=== PATIENT | female | born 1970 | race Caucasian/White ===

== ENCOUNTER 2016-11-13 22:44 | Emergency (ER) | payer BC ==
[2016-11-13 23:02] VITALS: TEMP 97.9
[2016-11-13] MEDS ORDERED: ONDANSETRON 4 MG/2 ML VIAL IVP STA (23:58)
[2016-11-13] MEDS ORDERED: MORPHINE SULFATE 4 MG/ML SYRINGE IVP STA (23:58)
[2016-11-13] MEDS ORDERED: SODIUM CHLORIDE 0.9% 1,000 ML IV ONE (23:58)
--- NOTE | 2016-11-14 00:01 | ED ---
Abdominal Pain HPI - General Chief Complaint: Abdominal Pain Stated Complaint: Abd Pain Time Seen by Provider: 11/13/16 23:41 Source: patient, RN notes reviewed Mode of arrival: ambulatory Limitations: no limitations - History of Present Illness Initial Comments: Patient is a 46-year-old female resents to the emergency room for evaluation of abdominal pain. Patient states she has a history of IBS and diverticulitis. Patient states following up with Dr. Ceballos was recently placed on Bentyl and Viberzi. Patient states over the past 3 days she has had worsening left lower quadrant pain and diarrhea. Patient denies any blood in the stools. Patient states nauseous and has been vomiting. Patient denies chest pain or shortness of breath. Patient denies any pain or burning during urination, trouble urinating or blood in the urine. Patient denies history of kidney stones. Patient states the pain radiates to her left lower back. Patient states that he 9 out of 10 constant sharp pain. - Related Data Home Medications Medication Instructions Recorded Confirmed ALPRAZolam [Xanax] 1 mg PO TID 02/01/15 11/13/16 Omeprazole [PriLOSEC] 20 mg PO AC-BID 02/01/15 11/13/16 Sertraline [Zoloft] 100 mg PO DAILY 05/13/16 11/13/16 Dicyclomine [Bentyl] 20 mg PO QID 09/24/16 11/13/16 Naproxen [Naprosyn] 500 mg PO Q12HR PRN 09/24/16 11/13/16 Eluxadoline [Viberzi] 75 mg PO QAM 10/23/16 11/13/16 Testosterone Cypionate 200 mg IM Q42D 10/23/16 11/13/16 [Depo-Testosterone] Turmeric Root Extract [Turmeric] 1,000 mg PO DAILY 10/23/16 11/13/16 Previous Rx's Medication Instructions Recorded Ciprofloxacin HCl [Cipro] 500 mg PO Q12HR #14 tablet 10/24/16 HYDROcodone/APAP 5-325MG [[place] 1 tab PO Q6HR PRN #15 tab 11/14/16 5-325] Allergies Allergy/AdvReac Type Severity Reaction Status Date / Time No Known Allergies Allergy Verified 11/13/16 23:02 Review of Systems ROS Statement: Those systems with pertinent positive or pertinent negative responses have been documented in the HPI. ROS Other: All systems not noted in ROS Statement are negative. Past Medical History Past Medical History: GERD/Reflux Additional Past Medical History / Comment(s): cluster headaches; IBS; Diverticulitis History of Any Multi-Drug Resistant Organisms: None Reported Past Surgical History: Hysterectomy Additional Past Surgical History / Comment(s): Colon/EGD Past Anesthesia/Blood Transfusion Reactions: No Reported Reaction Past Psychological History: No Psychological Hx Reported Smoking Status: Current every day smoker Past Alcohol Use History: Occasional Additional Past Alcohol Use History / Comment(s): STARTED TO SMOKE AT AGE 14 Past Drug Use History: None Reported, Marijuana - Past Family History Mother Family Medical History: No Reported History General Exam - General Exam Comments Initial Comments: Sitting in exam room, no acute distress. Limitations: no limitations General appearance: alert, in no apparent distress Head exam: Present: atraumatic, normocephalic, normal inspection Eye exam: Present: normal appearance ENT exam: Present: normal exam Neck exam: Present: normal inspection Respiratory exam: Present: normal lung sounds bilaterally. Absent: respiratory distress Cardiovascular Exam: Present: regular rate, normal rhythm, normal heart sounds GI/Abdominal exam: Present: soft, tenderness (LLQ), normal bowel sounds. Absent : distended, guarding, rebound, rigid Extremities exam: Present: normal inspection Back exam: Present: normal inspection Neurological exam: Present: alert, oriented X3, CN II-XII intact, normal gait Psychiatric exam: Present: normal affect, normal mood Skin exam: Present: warm, dry, intact, normal color. Absent: rash Course Vital Signs 11/13/16 11/14/16 22:59 01:48 Temperature 97.9 F 97.9 F Pulse Rate 99 87 Respiratory 18 16 Rate Blood Pressure 119/65 117/57 O2 Sat by Pulse 95 96 Oximetry Medical Decision Making - Medical Decision Making Patient is a 46-year-old female presents emergency room for evaluation of abdominal pain. Labs show no significant findings. Patient states she is feeling better after pain medications. Patient had a abdomen/pelvis CT done on 10/25/16 with no acute findings. Advised patient to follow-up with her GI specialist or primary care provider. Agreed to send patient home with pain medications. Patient states she understands everything that was discussed with her. Return parameters discussed. Case discussed with Dr. Larson. - Lab Data Result diagrams: 11/14/16 00:15 11/13/16 00:15 Lab Results 11/13/16 11/14/16 11/14/16 Range/Units 00:15 00:15 00:15 WBC 9.3 (3.8-10.6) k/uL RBC 4.63 (3.80-5.40) m/uL Hgb 15.4 (11.4-16.0) gm/dL Hct 47.1 H (34.0-46.0) % MCV 101.6 H (80.0-100.0) fL MCH 33.2 (25.0-35.0) pg MCHC 32.6 (31.0-37.0) g/dL RDW 12.5 (11.5-15.5) % Plt Count 322 (150-450) k/uL Neutrophils % 63 % Lymphocytes % 26 % Monocytes % 5 % Eosinophils % 3 % Basophils % 1 % Neutrophils # 5.9 (1.3-7.7) k/uL Lymphocytes # 2.4 (1.0-4.8) k/uL Monocytes # 0.5 (0-1.0) k/uL Eosinophils # 0.3 (0-0.7) k/uL Basophils # 0.1 (0-0.2) k/uL Sodium 138 (137-145) mmol/L Potassium 4.3 (3.5-5.1) mmol/L Chloride 102 (98-107) mmol/L Carbon Dioxide 30 (22-30) mmol/L Anion Gap 6 mmol/L BUN 23 H (7-17) mg/dL Creatinine 0.90 (0.52-1.04) mg/dL Est GFR (MDRD) Af Amer >60 (>60 ml/min/1.73 sqM) Est GFR (MDRD) Non-Af >60 (>60 ml/min/1.73 sqM) Glucose 101 H (74-99) mg/dL Calcium 9.2 (8.4-10.2) mg/dL Total Bilirubin 0.3 (0.2-1.3) mg/dL AST 22 (14-36) U/L ALT 37 (9-52) U/L Alkaline Phosphatase 81 (38-126) U/L Total Protein 6.5 (6.3-8.2) g/dL Albumin 3.9 (3.5-5.0) g/dL Amylase 49 (30-110) U/L Lipase 164 (23-300) U/L Urine Color Light Yellow Urine Appearance Clear (Clear) Urine pH 5.5 (5.0-8.0) Ur Specific [place] 1.011 (1.001-1.035) Urine Protein Negative (Negative) Urine Glucose (UA) Negative (Negative) Urine Ketones Negative (Negative) Urine Blood Negative (Negative) Urine Nitrate Negative (Negative) Urine Bilirubin Negative (Negative) Urine Urobilinogen <2.0 (<2.0) mg/dL Ur Leukocyte Esterase Negative (Negative) - Radiology Data Radiology results: report reviewed, image reviewed Disposition Clinical Impression: Abdominal pain, IBS (irritable bowel syndrome) Disposition: HOME SELF-CARE Condition: Good Instructions: Abdominal Pain (ED) Additional Instructions: Take medications as needed for pain. Please follow up with GI specialist or primary care provider 24-48 hours. If any new symptom arises, symptoms worsen or fever develops, return to ER as soon as possible. Prescriptions: HYDROcodone/APAP 5-325MG [[place] 5-325] 1 tab PO Q6HR PRN #15 tab PRN Reason: Pain Referrals: Eber Vazquez III, MD [Primary Care Provider] - 1-2 days Time of Disposition: 02:03
[2016-11-14 00:26] LABS: Appearance,Urine Clear (Clear); Bilirubin,Urine Negative (Negative); Glucose,Urine (UA) Negative (Negative); Ketones,Urine Negative (Negative); Leukocyte Esterase,Urine Negative (Negative); Nitrite,Urine Negative (Negative); PH, Urine 5.5 (5.0-8.0); Protein,Urine Negative (Negative); Specific Gravity,Urine 1.011 (1.001-1.035); UA Billing (MACRO vs. MICRO) CHEM; Urobilinogen,Urine <2.0 mg/dL (<2.0)
[2016-11-14 00:27] LABS: Basophils # (A) 0.1 k/uL (0-0.2); Basophils % (A) 1 %; CH 34.2; CHCM 33.8; Eosinophils # (A) 0.3 k/uL (0-0.7); Eosinophils % (A) 3 %; HCT 47.1 % (34.0-46.0); HDW 2.07; HGB 15.4 gm/dL (11.4-16.0); Luc # (Auto) 0.13; Luc % (Auto) 1; Lymphocytes # (A) 2.4 k/uL (1.0-4.8); Lymphocytes % (A) 26 %; MCH 33.2 pg (25.0-35.0); MCHC 32.6 g/dL (31.0-37.0); MCV 101.6 fL (80.0-100.0); Mean Platelet Volume 7.1; Monocytes # (A) 0.5 k/uL (0-1.0); Monocytes % (A) 5 %; Neutrophils # (A) 5.9 k/uL (1.3-7.7); Neutrophils % (A) 63 %; RBC 4.63 m/uL (3.80-5.40); RDW 12.5 % (11.5-15.5); WBC 9.3 k/uL (3.8-10.6); WBC (Perox) 8.71
[2016-11-14 00:35] LABS: ALT 37 U/L (9-52); AST 22 U/L (14-36); Alkaline Phosphatase 81 U/L (38-126); Amylase 49 U/L (30-110); Anion Gap 6 mmol/L; Blood Urea Nitrogen 23 mg/dL (7-17); Calcium 9.2 mg/dL (8.4-10.2); Carbon Dioxide 30 mmol/L (22-30); Chloride 102 mmol/L (98-107); Glucose 101 mg/dL (74-99); Non-African American GFR(MDRD) >60 (>60 ml/min/1.73 sqM); Potassium 4.3 mmol/L (3.5-5.1); Sodium 138 mmol/L (137-145); Total Bilirubin 0.3 mg/dL (0.2-1.3); Total Protein 6.5 g/dL (6.3-8.2)
--- NOTE | 2016-11-14 01:36 | XR ---
EXAMINATION TYPE: XR KUB DATE OF EXAM: 11/14/2016 12:43 AM CLINICAL HISTORY: History of diverticulosis and IBS. UTI 2 weeks ago, patient complains of nausea vom iting diarrhea. History of hysterectomy. . TECHNIQUE: 2 upright frontal radiographs of abdomen were obtained. COMPARISON: 09/13/2009 FINDINGS: Scattered gas is seen in non-distended small bowel loops. Gas and fecal material is seen in non-distended colon. There is no pneumoperitoneum, or abnormal calcification appreciated. The l abimbola bases are clear and the osseous structures are intact. IMPRESSION: Overall nonobstructive bowel gas pattern.
[2016-11-14 01:48] VITALS: BP 117/57; PULSE 87; RESP 16
[2016-11-14] MEDS ORDERED: MORPHINE SULFATE 4 MG/ML SYRINGE IVP STA (02:05)
== END 2016-11-14 02:38 | disposition home or self-care (01) ==
LOC: EC 22:44
DX: K58.9 Irritable bowel syndrome, unspecified (principal); K21.9 Gastro-esophageal reflux disease without esophagitis; F17.200 Nicotine dependence, unspecified, uncomplicated; Z79.899 Other long term (current) drug therapy
CPT/HCPCS: 99284; 96376; 96375; 96374; 96361; 36415 ×2; 80053; 82150; 83690; 85025; 81003; 74000; J2270; J2405

== ENCOUNTER 2016-12-19 21:39 | Emergency (ER) | payer BC ==
--- NOTE | 2016-12-19 23:31 | ED ---
General Adult HPI - General Chief complaint: Headache Stated complaint: Poss cluster headache Time Seen by Provider: 12/19/16 22:58 Source: patient, RN notes reviewed Mode of arrival: ambulatory Limitations: no limitations - History of Present Illness Initial comments: This is a 38-year-old female presents with left side "cluster headaches". Patient states she gets chronic headaches with the same symptoms that she is having today. Patient states she normally gets blurred vision to the left eye and symptoms can last for about 3 hours until they subside only to return again. Patient denies any trouble talking dysphagia, nausea/vomiting/diarrhea. She denies any head injury. Patient does admit to some photophobia of the left eye. Patient states she has had these symptoms all week. Patient has taken Fioricet and Tylenol #3, but this has not helped. Patient denies any recent fever, chills, shortness breath, chest pain, abdominal pain, back pain, numbness, tingling, hematuria, or any other complaints. - Related Data Home Medications Medication Instructions Recorded Confirmed ALPRAZolam [Xanax] 1 mg PO TID PRN 02/01/15 12/19/16 Omeprazole [PriLOSEC] 20 mg PO AC-BID 02/01/15 12/19/16 Sertraline [Zoloft] 100 mg PO DAILY 05/13/16 12/19/16 Testosterone Cypionate 200 mg IM Q42D 10/23/16 12/19/16 [Depo-Testosterone] Turmeric Root Extract [Turmeric] 1,000 mg PO DAILY 10/23/16 12/19/16 Acetaminophen-Codeine 300-30mg 1 tab PO Q6H PRN 12/19/16 12/19/16 [Tylenol #3] Butalb/APAP/Caff 50-325-40Mg 1 tab PO Q4H PRN 12/19/16 12/19/16 [Fioricet 50-325-40] Butalb/Acetaminophen/Caffeine 1 - 2 cap PO Q4HR PRN 12/19/16 12/19/16 [Fioricet 50-300-40 mg Capsule] Hyoscyamine Sulfate [Levbid] 0.375 mg PO AC-TID PRN 12/19/16 12/19/16 Mesalamine [Pentasa] 500 mg PO BID 12/19/16 12/19/16 Allergies Allergy/AdvReac Type Severity Reaction Status Date / Time No Known Allergies Allergy Verified 12/19/16 23:04 Review of Systems ROS Statement: Those systems with pertinent positive or pertinent negative responses have been documented in the HPI. ROS Other: All systems not noted in ROS Statement are negative. Past Medical History Past Medical History: GERD/Reflux Additional Past Medical History / Comment(s): cluster headaches; IBS; Diverticulitis History of Any Multi-Drug Resistant Organisms: None Reported Past Surgical History: Hysterectomy Additional Past Surgical History / Comment(s): Colon/EGD Past Anesthesia/Blood Transfusion Reactions: No Reported Reaction Past Psychological History: No Psychological Hx Reported Smoking Status: Current every day smoker Past Alcohol Use History: Occasional Additional Past Alcohol Use History / Comment(s): STARTED TO SMOKE AT AGE 14 Past Drug Use History: None Reported, Marijuana - Past Family History Mother Family Medical History: No Reported History General Exam - General Exam Comments Initial Comments: General: The patient is awake and alert, in no distress, and does not appear acutely ill. Eye: Pupils are equal, round and reactive to light, extra-ocular movements are intact. No nystagmus. There is normal conjunctiva bilaterally. No signs of icterus. Normal ocular pressure via tonometry. Ears: TMs pink and pearly with intact cone of light bilaterally. Normal external ear canals Nose: Nasal turbinates pink and moist Mouth and throat: There are moist mucous membranes and no oral lesions. Neck: The neck is supple, there is no tenderness or JVD. Cardiovascular: There is a regular rate and rhythm. No murmur, rub or gallop is appreciated. Respiratory: Lungs are clear to auscultation, respirations are non-labored, breath sounds are equal. No wheezes, stridor, rales, or rhonchi. Musculoskeletal: Normal ROM, no tenderness. Strength 5/5. Sensation intact. Radial pulses equal bilaterally 2+. Neurological: A&O x 3. CN II-XII intact, There are no obvious motor or sensory deficits. Coordination appears grossly intact. Speech is normal. Skin: Skin is warm and dry and no rashes or lesions are noted. Psychiatric: Cooperative, appropriate mood & affect, normal judgment. Limitations: no limitations Course Vital Signs 12/19/16 22:20 Temperature 98.1 F Pulse Rate 101 H Respiratory 20 Rate Blood Pressure 115/68 O2 Sat by Pulse 96 Oximetry Medical Decision Making - Medical Decision Making This is a 38-year-old female who presents with symptoms of a cluster headache. Patient states she gets these periodically and the symptoms she has today are typical headache symptoms for her. On physical exam patient is neurologically intact. Patient is afebrile in the EC today. Patient was given IV medications in the EC today along with a fluid bolus. Patient was also given 2 L of oxygen via nasal cannula due to symptoms of cluster headache. Patient reported improvement in symptoms. Patient also reports improvement in vision after IV medications. Tonometry showed normal ocular pressure. I discussed that patient will be discharged home. I discussed rest. I discussed return parameters. I discussed continuation of the patient's home headache medications. I discussed that patient follow up with her primary care physician tomorrow. Discussed that patient should return to the EC for any worsening symptoms or for any further concerns. Patient was receptive to this plan and patient will be discharged home. I discussed this case with attending physician Dr. Hwoe and patient will be discharged home. Disposition Clinical Impression: Chronic headaches Disposition: HOME SELF-CARE Condition: Good Instructions: Cluster Headache (ED) Additional Instructions: Please continue your normal at home headache medications. Please be sure to drink plenty of fluids. Please follow-up with her primary care physician tomorrow or return to the EC for any worsening symptoms or for any further concerns. Referrals: Eber Vazquez III, MD [Primary Care Provider] - 1-2 days Time of Disposition: 00:48
[2016-12-19] MEDS ORDERED: diphenhydrAMINE 50 MG/ML 1 ML VIAL IVP STA (23:39)
[2016-12-19] MEDS ORDERED: DEXAMETHASONE SOD PHOSPHATE 4 MG/ML 1 ML VIAL IV STA (23:39)
[2016-12-19] MEDS ORDERED: KETOROLAC 30 MG/ML 1 ML VIAL IVP STA (23:39)
[2016-12-19] MEDS ORDERED: METOCLOPRAMIDE 5 MG/ML 2 ML VIAL IVP STA (23:40)
[2016-12-19] MEDS ORDERED: SODIUM CHLORIDE 0.9% 1,000 ML IV ONE (23:40)
[2016-12-20 01:02] VITALS: BP 123/81; PULSE 79; RESP 18; TEMP 96.9
== END 2016-12-20 01:02 | disposition home or self-care (01) ==
LOC: EC 21:39
DX: R51 Headache (principal); K21.9 Gastro-esophageal reflux disease without esophagitis; F17.200 Nicotine dependence, unspecified, uncomplicated; Z79.899 Other long term (current) drug therapy
CPT/HCPCS: 99283; 96374; 96375; 96361; J1200; J1100; J2765; J1885

== ENCOUNTER 2019-10-26 06:25 | Inpatient (IN) | payer BC ==
[2019-10-26] MEDS ORDERED: LORazepam 2 MG/ML INJ IV STA (06:45)
[2019-10-26] MEDS ORDERED: ASPIRIN 81 MG PO STA (06:45)
[2019-10-26 07:00] LABS: Basophils # (A) 0.1 k/uL (0-0.2); Basophils % (A) 1 %; Eosinophils # (A) 0.3 k/uL (0-0.7); Eosinophils % (A) 3 %; HCT 47.1 % (34.0-46.0); HGB 15.5 gm/dL (11.4-16.0); Lymphocytes # (A) 2.2 k/uL (1.0-4.8); Lymphocytes % (A) 22 %; MCH 32.8 pg (25.0-35.0); MCHC 32.9 g/dL (31.0-37.0); MCV 99.7 fL (80.0-100.0); Monocytes # (A) 0.4 k/uL (0-1.0); Monocytes % (A) 4 %; Neutrophils # (A) 6.6 k/uL (1.3-7.7); Neutrophils % (A) 69 %; Platelet Count 334 k/uL (150-450); RBC 4.73 m/uL (3.80-5.40); RDW 11.8 % (11.5-15.5); WBC 9.7 k/uL (3.8-10.6)
--- NOTE | 2019-10-26 07:04 | ED ---
Chest Pain HPI - General Chief Complaint: Chest Pain Stated Complaint: Chest Pain/Lft arm pain Time Seen by Provider: 10/26/19 06:34 Source: patient, RN notes reviewed Mode of arrival: ambulatory Limitations: no limitations - History of Present Illness Initial Comments: 49-year-old female presents emergency Department with chief complaint of chest pain. She states she's had some on-and-off symptoms last week but states overnight she had worsening constant pain. She states it's in her anterior chest region also radiates to her shoulders and left arm. She states that she tingling or left hand. Patient states that she does have a history of hyperlipidemia denies hypertension. Patient is a daily smoker history of anxiety. Patient denies any fevers chills. Patient denies any cardiac stenting or stress test. Patient states that she reportedly had a small heart attack in the past.patient states that it's difficult to breathe. Patient states that she just feels like she cannot get a full breath in. - Related Data Home Medications Medication Instructions Recorded Confirmed Atorvastatin [Lipitor] 10 mg PO HS 10/26/19 10/26/19 DULoxetine HCL [Cymbalta] 60 mg PO HS 10/26/19 10/26/19 Naproxen 500 mg PO DAILY PRN 10/26/19 10/26/19 Topiramate 100 mg PO BID 10/26/19 10/26/19 clonazePAM [KlonoPIN] 2 mg PO HS 10/26/19 10/26/19 Allergies Allergy/AdvReac Type Severity Reaction Status Date / Time No Known Allergies Allergy Verified 10/26/19 07:32 Review of Systems ROS Statement: Those systems with pertinent positive or pertinent negative responses have been documented in the HPI. ROS Other: All systems not noted in ROS Statement are negative. EKG Findings - EKG Comments: EKG Findings:: EKG performed at 6:39 normal sinus rhythm with left atrial enlargement rate of 80 MA 134 QRS 90 QT/QTC 394/454 Past Medical History Past Medical History: Fibromyalgia, GERD/Reflux, Hyperlipidemia Additional Past Medical History / Comment(s): cluster headaches; IBS; Diverticulitis History of Any Multi-Drug Resistant Organisms: None Reported Past Surgical History: Hysterectomy Additional Past Surgical History / Comment(s): Colon/EGD Past Anesthesia/Blood Transfusion Reactions: No Reported Reaction Past Psychological History: Anxiety, Depression Smoking Status: Current every day smoker Past Alcohol Use History: Occasional Past Drug Use History: Marijuana - Past Family History Mother Family Medical History: No Reported History General Exam Limitations: no limitations General appearance: alert, in no apparent distress Head exam: Present: atraumatic, normocephalic, normal inspection Eye exam: Present: normal appearance, PERRL, EOMI. Absent: scleral icterus, conjunctival injection, periorbital swelling ENT exam: Present: normal exam, normal oropharynx, mucous membranes moist Neck exam: Present: normal inspection, full ROM. Absent: tenderness, meningismus, lymphadenopathy Respiratory exam: Present: normal lung sounds bilaterally. Absent: respiratory distress, wheezes, rales, rhonchi, stridor Cardiovascular Exam: Present: regular rate, normal rhythm, normal heart sounds. Absent: systolic murmur, diastolic murmur, rubs, gallop, clicks GI/Abdominal exam: Present: soft, normal bowel sounds. Absent: distended, tenderness, guarding, rebound, rigid Course Vital Signs 10/26/19 10/26/19 10/26/19 06:30 06:49 07:15 Temperature 98.1 F Pulse Rate 98 76 Pulse Rate [ 82 Monotypist ] Respiratory 20 16 Rate Blood Pressure 124/86 135/101 O2 Sat by Pulse 98 99 Oximetry Critical Care Time Critical Care Time: Yes Total Critical Care Time: 35 Critical Care Time: total 35 minutes of critical care time initially evaluated patient, reviewed past medical history medications. Patient's labs, EKG and chest x-ray ordered patient was given aspirin at this time. Patient EKG shows some old changes nothing acute. Patient had labs which were unremarkable except for an elevated troponin at 1.790. Patient was started on heparin, given nitro for NSTEMi. Urology was paged at this time. Patient will be admitted to medicine. Disposition Clinical Impression: Acute non-ST elevation myocardial infarction (NSTEMI) Disposition: ADMITTED IP TO THIS HOSP Condition: Fair Referrals: Eber Vazquez III, MD [Primary Care Provider] - 1-2 days
[2019-10-26 07:10] LABS: ALT 72 U/L (4-34); AST 59 U/L (14-36); African American GFR (CKD) >90 (>60 ml/min/1.73 sqM); Albumin 4.3 g/dL (3.5-5.0); Alkaline Phosphatase 111 U/L (38-126); Anion Gap 9 mmol/L; Blood Urea Nitrogen 22 mg/dL (7-17); Calcium 9.3 mg/dL (8.4-10.2); Carbon Dioxide 20 mmol/L (22-30); Chloride 110 mmol/L (98-107); Glucose 121 mg/dL (74-99); Magnesium 2.1 mg/dL (1.6-2.3); Non-African American GFR(CKD) 85 (>60 ml/min/1.73 sqM); Potassium 4.5 mmol/L (3.5-5.1); Sodium 139 mmol/L (137-145); Total Bilirubin 0.5 mg/dL (0.2-1.3); Total Protein 7.5 g/dL (6.3-8.2)
[2019-10-26 07:14] LABS: D-Dimer 0.45 mg/L FEU (<0.60); INR 0.8 (<1.2); Partial Thromboplastin Time 24.4 sec (22.0-30.0); Prothrombin Time 9.4 sec (9.0-12.0)
--- NOTE | 2019-10-26 07:19 | XR ---
EXAMINATION TYPE: XR chest 2V DATE OF EXAM: 10/26/2019 COMPARISON: NONE HISTORY: Left-sided chest pain. TECHNIQUE: Frontal and lateral views of the chest are obtained. FINDINGS: Overlying EKG leads are seen. There is no focal air space opacity, pleural effusion, or pne umothorax seen. The cardiac silhouette size is upper limits of normal. The osseous structures are intact. IMPRESSION: No acute cardiopulmonary process.
[2019-10-26] MEDS ORDERED: NITROGLYCERIN SL TABS 0.4 MG TAB SUBLINGUAL STA (07:58)
[2019-10-26] MEDS ORDERED: HEPARIN SODIUM,PORCINE 5,000 UNIT/ML 1 ML VIAL IV PRN (07:58)
[2019-10-26] MEDS ORDERED: HEPARIN SODIUM,PORCINE 5,000 UNIT/ML 1 ML VIAL IV ONE (07:58)
[2019-10-26] MEDS ORDERED: HEPARIN SOD,PORK IN 0.45% NACL 25,000 UNIT in 0.45% NACL 1 250ML.BAG IV SCH (08:00)
[2019-10-26] MEDS ORDERED: NITROGLYCERIN SL TABS 0.4 MG TAB SUBLINGUAL PRN ×3 (08:04→11:35)
[2019-10-26] MEDS ORDERED: NITROGLYCERIN-D5W PMX 50 MG in DEXTROSE/WATER 1 250ML.BAG IV ONE (08:21)
[2019-10-26] MEDS ORDERED: ATORVASTATIN 80 MG TAB PO STA ×2 (08:52→09:10)
[2019-10-26] MEDS ORDERED: ASPIRIN 325 MG TAB PO STA (09:10)
[2019-10-26] MEDS ORDERED: ALPRAZolam 0.25 MG TAB PO PRN (09:10)
[2019-10-26] MEDS ORDERED: ALPRAZolam 0.5 MG TAB PO PRN (09:10)
[2019-10-26] MEDS ORDERED: SODIUM CHLORIDE 0.9% 1,000 ML in EMPTY BAG 1 BAG IV ONE (09:10)
--- NOTE | 2019-10-26 09:10 | P.CRDCN ---
History of Present Illness Consult date: 10/26/19 Requesting physician: Rita Butler Consult reason: non-Q-wave NM Chief complaint: left arm and chest discomfort History of present illness: this is a pleasant 49-year-old female with history of hyperlipidemia, nicotine dependence, anxiety and depression, who presented to the emergency room with symptoms of left arm pain with radiation to the chest, and across her upper back and interscapular region. Patient has been experiencing symptoms off and on, progressively worsening over the past week or more. Patient does get associated diaphoresis and short of breath with these symptoms. According to the patient, she did not recognize her even think that this would be her heart. The night before presentation here she states was the worst of the symptoms, she took 2 Xanax hoping it would alleviate the symptoms however they continued to worsen and she came to the emergency room for further evaluation and treatment.her initial EKG on presentation here showed a normal sinus rhythm with inferior T-wave inversion.chest x-ray did not reveal any acute cardiopulmonary process.blood pressure 130/80 with a heart rate in the 80s, 99% on room air.White blood cell count 9.7, hemoglobin 15.5, platelet count 334, d-dimer 0.4. Sodium 139, potassium 4.5, BUN 22, creatinine 0.8, magnesium 2.1. AST 59, ALT 72.Initial troponin on presentation here 1.7.at the time of my examination this morning, patient was seen in the emergency room, she is currently chest pain-free, on IV heparin. Past Medical History Past Medical History: Fibromyalgia, GERD/Reflux, Hyperlipidemia Additional Past Medical History / Comment(s): Pt states in the pase she accidentally injected too much submatriptan for migraine and had a reaction and was told by her physician she may have had a small NM, past GERD, cluster headaches, IBS, diverticular disease, bronchitis. History of Any Multi-Drug Resistant Organisms: None Reported Past Surgical History: Hysterectomy Additional Past Surgical History / Comment(s): Colonoscopies/EGDs Past Anesthesia/Blood Transfusion Reactions: No Reported Reaction Past Psychological History: Anxiety, Depression Additional Psychological History / Comment(s): Pt resides with her spouse. She is independent. Smoking Status: Light tobacco smoker Past Alcohol Use History: Occasional Additional Past Alcohol Use History / Comment(s): Pt started smoking in 1981, 1 ppd, but for pst few weeks has cut down to one pack per week. She states she drinks alcohol 4 days of the week and more than 7 drinks per week. Past Drug Use History: Marijuana Additional Drug Use History / Comment(s): Pt smokes marijuana occasionally - Past Family History Mother Family Medical History: No Reported History Additional Family Medical History / Comment(s): Mother is healthy and is 81 yrs old. Father Family Medical History: No Reported History Additional Family Medical History / Comment(s): Father is 74 and healthy Medications and Allergies Home Medications Medication Instructions Recorded Confirmed Type Atorvastatin [Lipitor] 10 mg PO HS 10/26/19 10/26/19 History DULoxetine HCL [Cymbalta] 60 mg PO HS 10/26/19 10/26/19 History Naproxen 500 mg PO DAILY PRN 10/26/19 10/26/19 History Topiramate 100 mg PO BID 10/26/19 10/26/19 History clonazePAM [KlonoPIN] 2 mg PO HS 10/26/19 10/26/19 History Allergies Allergy/AdvReac Type Severity Reaction Status Date / Time No Known Allergies Allergy Verified 10/26/19 07:32 Physical Exam Vitals: Vital Signs Temp Pulse Pulse Resp BP Pulse Ox 10/26/19 08:24 86 16 129/89 99 10/26/19 07:15 76 16 135/101 99 10/26/19 06:49 82 10/26/19 06:30 98.1 F 98 20 124/86 98 Intake and Output 10/25/19 10/26/19 10/26/19 22:59 06:59 14:59 Other: Weight 81.647 kg 81.647 kg PHYSICAL EXAMINATION: GENERAL:49-year-old female in no acute distress at the time of my examination HEENT: Head is atraumatic, normocephalic. Pupils equal, round. Sclera anicter ic. Conjunctiva are clear. Mucous membranes of the mouth are moist. Neck is supple. There is no elevated jugular venous pressure.no carotid bruit is heard. HEART EXAMINATION: [Heart S1, S2 normal. No murmur or gallop heard.] CHEST EXAMINATION:[ Lungs are clear to auscultation and precussion. No chest wall tenderness is noted on palpation or with deep breathing.] ABDOMEN: [ Soft, nontender. Bowel sounds are heard. No organomegaly noted]. EXTREMITIES:[ 2+ peripheral pulses with no evidence of peripheral edema and no calf tenderness noted]. NEUROLOGIC [patient is awake, alert and oriented 3.] . Results 10/26/19 06:39 10/26/19 06:39 Cardiac Enzymes 10/26/19 10/26/19 Range/Units 06:39 06:39 AST 59 H (14-36) U/L Troponin I 1.790 H* (0.000-0.034) ng/mL Coagulation 10/26/19 Range/Units 06:39 PT 9.4 (9.0-12.0) sec APTT 24.4 (22.0-30.0) sec CBC 10/26/19 Range/Units 06:39 WBC 9.7 (3.8-10.6) k/uL RBC 4.73 (3.80-5.40) m/uL Hgb 15.5 (11.4-16.0) gm/dL Hct 47.1 H (34.0-46.0) % Plt Count 334 (150-450) k/uL Comprehensive Metabolic Panel 10/26/19 Range/Units 06:39 Sodium 139 (137-145) mmol/L Potassium 4.5 (3.5-5.1) mmol/L Chloride 110 H (98-107) mmol/L Carbon Dioxide 20 L (22-30) mmol/L BUN 22 H (7-17) mg/dL Creatinine 0.81 (0.52-1.04) mg/dL Glucose 121 H (74-99) mg/dL Calcium 9.3 (8.4-10.2) mg/dL AST 59 H (14-36) U/L ALT 72 H (4-34) U/L Alkaline Phosphatase 111 (38-126) U/L Total Protein 7.5 (6.3-8.2) g/dL Albumin 4.3 (3.5-5.0) g/dL Current Medications Generic Name Dose Route Start Last Admin Trade Name Freq PRN Reason Stop Dose Admin Aspirin 325 mg 10/27/19 09:00 Aspirin PO DAILY DAYSI Heparin Sodium (Porcine) 0 unit 10/26/19 07:58 Heparin IV PER PROTOCOL PRN Low PTT Protocol Heparin Sodium/Sodium Chloride 250 mls @ 9.798 mls/hr 10/26/19 08:00 12/17/19 08:07 25,000 unit/ Sodium Chloride IV 12 units/kg/hr .Q24H DAYSI 9.798 mls/hr Administration Protocol 12 UNITS/KG/HR Nitroglycerin/Dextrose 50 mg/ 250 mls @ 1.5 mls/hr 10/26/19 08:21 10/26/19 08:55 IV Solution IV 10/27/19 08:20 Not Given .Q24H ONE Protocol 5 MCG/MIN Nitroglycerin 0.4 mg 10/26/19 08:04 Nitrostat SUBLINGUAL Q5M PRN Chest Pain Intake and Output 10/25/19 10/26/19 10/26/19 22:59 06:59 14:59 Other: Weight 81.647 kg 81.647 kg Patient Weight 10/27/19 06:59 Weight 81.647 kg 10/26/19 06:39 10/26/19 06:39 EKG Interpretations (text) EKG shows normal sinus rhythm with ST-T wave changes noted in the inferior leads. Assessment and Plan Plan: Assessment and plan #1 symptoms of left arm and chest discomfort with associated diaphoresis and nausea, initial troponin 1.7. EKG shows normal sinus rhythm with ST-T wave changes noted in the inferior leads. Clinical picture suggestive of non-STEMI #2 hyperlipidemia #3 nicotine dependence #4 anxiety and depression Plan We will obtain a stat echocardiogram with Doppler study as well as a repeat EKG. Give the patient 80 mg of Lipitor now, she has received aspirin and is currently on IV heparin.we will start the patient on a low-dose of beta shar .patient has been advised to undergo urgent cardiac catheterization, the risks and the benefits were explained to the patient in detail and she is willing to proceed. This will be performed today by Dr. VC Carpio. Further recommendations will be based on these findings and the patient's clinical c ourse. DNP note has been reviewed, I agree with a documented findings and plan of care. Patient was seen and examined.
[2019-10-26] MEDS ORDERED: METOPROLOL TARTRATE 25 MG TAB PO SCH ×2 (09:15→21:00)
[2019-10-26] MEDS ORDERED: LIDOCAINE 1% INJ 10MG/ML (20 ML MDV) ONE (09:47)
[2019-10-26] MEDS ORDERED: fentaNYL (PF) 50 MCG/ML 2 ML AMP ONE (09:48)
[2019-10-26] MEDS ORDERED: IV FLUID CONTINUATION 500 ML IV ONE (09:52)
--- NOTE | 2019-10-26 10:00 | ECHOF ---
Referral Reason:NSTEMI MEASUREMENTS -------- HEIGHT: 157.5 cm WEIGHT: 81.6 kg BP: 129/89 RVIDd: 2.3 cm (< 3.3) IVSd: 1.5 cm (0.6 - 1.1) LVIDd: 3.6 cm (3.9 - 5.3) LVPWd: 1.4 cm (0.6 - 1.1) IVSs: 1.7 cm LVIDs: 2.9 cm LVPWs: 1.8 cm LAESV Index (A-L): 16.02 ml/m Ao Diam: 3.2 cm (2.0 - 3.7) AV Cusp: 2.0 cm (1.5 - 2.6) MV E Skip: 0.36 m/s MV DecT: 206 ms MV A Skip: 0.73 m/s MV E/A Ratio: 0.49 RAP: 5.00 mmHg RVSP: 22.74 mmHg FINDINGS -------- Sinus rhythm. This was a technically good study. The left ventricular size is normal. There is moderate concentric left ventricular hypertrophy. O verall left ventricular systolic function is low-normal with, an EF between 50 - 55 %. The diastoli c filling pattern is normal for the age of the patient 7.17. Basal lateral LV wall motion is hypoki netic. Basal inferior LV wall motion is hypokinetic. The right ventricle is normal in size. Normal LA size by volume 22+/-6 ml/m2. The right atrial size is normal. Interatrial and interventricular septum intact. The aortic valve is trileaflet and appears structurally normal. Trace amount of aortic regurgitatio n. There is no evidence of aortic stenosis. Mild mitral regurgitation is present. Mild tricuspid regurgitation present. There is no evidence of pulmonary hypertension. The right v entricular systolic pressure, as measured by Doppler, is 22.74mmHg. There is no pulmonic regurgitation present. The aortic root size is normal. Normal inferior vena cava with normal inspiratory collapse consistent with estimated right atrial pre ssure of 5 mmHg. There is no pericardial effusion. CONCLUSIONS -------- 1. Sinus rhythm. 2. This was a technically good study. 3. The left ventricular size is normal. 4. There is moderate concentric left ventricular hypertrophy. 5. Overall left ventricular systolic function is low-normal with, an EF between 50 - 55 %. 6. The diastolic filling pattern is normal for the age of the patient 7.17 7. Basal lateral LV wall motion is hypokinetic. 8. Basal inferior LV wall motion is hypokinetic. 9. The right ventricle is normal in size. 10. Normal LA size by volume 22+/-6 ml/m2. 11. The right atrial size is normal. 12. Interatrial and interventricular septum intact. 13. The aortic valve is trileaflet and appears structurally normal. 14. Trace amount of aortic regurgitation. 15. There is no evidence of aortic stenosis. 16. Mild mitral regurgitation is present. 17. Mild tricuspid regurgitation present. 18. There is no evidence of pulmonary hypertension. 19. The right ventricular systolic pressure, as measured by Doppler, is 22.74mmHg. 20. There is no pulmonic regurgitation present. 21. The aortic root size is normal. 22. Normal inferior vena cava with normal inspiratory collapse consistent with estimated right atrial pressure of 5 mmHg. 23. There is no pericardial effusion. FRY COOK: Aleyda Smith RDCS
[2019-10-26] MEDS: MIDAZOLAM 2 MG/2 ML VIAL IV ONE ×2 (10:01→10:05)
[2019-10-26] MEDS ORDERED: fentaNYL (PF) 50 MCG/ML 2 ML AMP IV ONE (10:01)
[2019-10-26] MEDS ORDERED: LIDOCAINE 1% INJ 10MG/ML (10 ML MDV) SQ ONE (10:07)
[2019-10-26] MEDS ORDERED: PRASUGREL 10 MG TAB ONE (10:25)
[2019-10-26] MEDS ORDERED: PRASUGREL 10 MG TAB PO ONE (10:30)
[2019-10-26] MEDS ORDERED: BIVALIRUDIN 250 MG in SODIUM CHLORIDE 0.9% 50 ML IV ONE (10:34)
[2019-10-26] MEDS ORDERED: BIVALIRUDIN BOLUS 250 MG/50 ML IV ONE (10:34)
[2019-10-26] MEDS ORDERED: MIDAZOLAM 2 MG/2 ML VIAL IV ONE (11:06)
[2019-10-26] MEDS ORDERED: NITROGLYCERIN 1000MCG/10ML SYRINGE INTRACORON ONE (11:12)
[2019-10-26] MEDS ORDERED: IOPAMIDOL-370 125ML BTL INJ ONE (11:18)
--- NOTE | 2019-10-26 11:22 | CC ---
CARDIAC CATHETERIZATION REPORT Mrs. Palm is a 49-year-old female who came to the emergency room this morning with a prolonged episode of chest pain. EKG showed T-wave inversions in the inferior leads. The troponin was 1.0 suggestive of a non-Q-wave myocardial infarction. The patient does have a history of hyperlipidemia and smoking. Patient was advised cardiac catheterization. PROCEDURE: The right groin was prepped and draped in the usual manner and the right femoral artery using was entered using micropuncture needle under ultrasound guidance and a #6-Irish sheath was placed in. Selective coronary angiography was then performed in multiple projections and the left ventricular pressures were obtained. Patient tolerated the procedure well. Moderate sedation was used. Total sedation time is 20 minute. HEMODYNAMICS: The left ventricular end-diastolic pressure is 8 mmHg prior to angiography. No gradient is noted across the aortic valve. SELECTIVE CORONARY ANGIOGRAPHY: Left main coronary artery is normal and patent. LAD is a good caliber blood vessel. Mid LAD has A 40% stenosis. Circumflex coronary artery is normal. Right coronary artery is totally blocked in its proximal portion. The distal right coronary artery fills the collaterals from the LAD. FINAL IMPRESSION: 1. 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 Distal right coronary fills collaterals from left anterior descending artery. 2. Mid left anterior descending artery has a 40% stenosis. 3. Circumflex coronary artery is normal. RECOMMENDATIONS: We will review the film with Dr. Dominguez and consider the stent to the RCA. MMODL / IJN: [id number] /
[2019-10-26] MEDS ORDERED: IOPAMIDOL-370 100ML BTL INJ ONE (11:24)
[2019-10-26] MEDS ORDERED: ZOLPIDEM 5 MG TAB PO PRN (11:35)
[2019-10-26] MEDS ORDERED: RX INFO: IV CONTRAST WAS GIVEN 1 EACH MISC MISCELLANE PRN (11:35)
[2019-10-26] MEDS ORDERED: MAG HYDROX/AL HYDROX/SIMETH 30 ML CUP PO PRN (11:35)
[2019-10-26] MEDS ORDERED: ATROPINE SULFATE 0.1 MG/ML 10ML SYRINGE IV PRN (11:35)
[2019-10-26] MEDS ORDERED: SODIUM CHLORIDE 0.9% 1,000 ML IV SCH (11:45)
--- NOTE | 2019-10-26 11:52 | AS ---
ARTERIAL STUDY CORONARY ANGIOPLASTY PROCEDURE NOTE: Mrs. Paml is a 49-year-old female with known history of hyperlipidemia, chronic tobacco use, who presented with symptoms of chest discomfort and troponin elevation with T-wave inversion inferiorly. She underwent cardiac catheterization by Dr. Aidan Carpio and was found to have a totally occluded proximal right coronary artery. In view of that, recommendation regarding angioplasty and stenting. The procedures, risks, and complications were discussed with the patient who is in full understanding and agreement. PROCEDURE: A 6-Upper Sorbian FR4 guiding catheter introduced into the system. After cannulating the right coronary ostium, a 0.014 balanced medium weight J-wire was advanced across the lesion, positioned distally, then a 2.5 x 12 mm Trek balloon was advanced and one inflation at 8 atmospheres was done. Following that the balloon was removed and a 3.0 x 28 mm Xience Laura stent was deployed post at 16 atmospheres after the last inflation, after appropriate wait, the balloon guide with wire withdrawn back in the guiding catheter. Images were obtained and repeated. Those images reveal stable successful stenting. At that point, the guiding catheter, the balloon and guidewire were removed. The sheath was removed. Hemostasis was obtained with deployment of Angio-Seal. There was no immediate complication. Patient is returned to her room in stable condition. Of note, the patient received Angiomax per protocol as well as oral loading dose of Effient. She had no chest pain or EKG changes with the inflation. RESULTS: Successful stenting of the proximal RCA with reduction of stenosis from 100% to 0%. RECOMMENDATIONS: Patient will be continued on aspirin, Effient, beta shar, EDY inhibitor, and statin. The importance of dual antiplatelet treatment were discussed with the patient and her family and they are in full understanding and agreement. Duration of procedure 22 minutes. MMODL / IJN: [id number] / MTDD
--- NOTE | 2019-10-26 11:57 | LTR ---
DATE OF SERVICE: 10/26/2019 RE: Bryan Palm Dear Dr. Vazquez: I had the pleasure to perform coronary angioplasty and stenting on Mrs. Palm at [facility] on the 26 of October and a full copy of the procedure note will be forwarded to you. In brief, she underwent successful stenting of the proximal and mid right coronary artery and hopefully this procedure will stabilize her status. Thank you again for allowing me to participates in this patient's personal care. Please feel free to call for any questions. Sincerely yours, Sourav Dominguez MD MMREAGANL / BERNICEN: [id number] /
[2019-10-26] MEDS: METOPROLOL TARTRATE 25 MG TAB PO SCH ×2 (12:19→21:04)
[2019-10-26 13:25] VITALS: BMI 32.9
--- NOTE | 2019-10-26 17:45 | P.HPIM ---
History of Present Illness H&P Date: 10/26/19 Chief Complaint: chest pain patient is a 49-year-old femalewith a known history of fibromyalgia, GERD, hyperlipidemia andongoing nicotine addiction and occasional marijuana use came to ER with complaints of chest pain. Patient has been havingon and off chest pains for the past 2 weeks. But last night pain became unbearable and presented to ER. Chest pain is mainly left retrosternal and radiating down the left arm and both shoulders. Patient also felt pain across the upper back. Was having cold sweats as well. Denied any fever. No headache or dizziness or lighthe adedness. No nausea vomiting or diarrhea. Patient was having shortness of breath as well.patient does have anxiety disorder and did take 2 Xanax at home without much relief. EKG showed normal sinus rhythm with T-wave inversions in the inferior leads Chest x-ray showed no acute cardio pulmonary process. D-dimer is 0.4 Troponin1.79 on admission.. patient was started on heparin drip. Patient was s een by cardiology. Patient underwent cardiac cath additional stent placement. Review of Systems Constitutional: Patient denies any fever or chills . No generalized weakness or weight loss. Abdomen: Patient denied nausea vomiting and diarrhea and abdominal pain. Cardiovascular: Patient denies any chest pain or short of breath no palpitations. Respiratory: patient denied any cough is from production. No shortness of breath Neurologic: Patient denied any numbness or tingling headache. Musculoskeletal: Patient denies any complaints of joint swelling or deformity. Skin: Negative Psychiatric: Negative Endocrine: No heat or cold intolerance. No recent weight gain. Genitourinary: No dysuria or hematuria. All other 14 point ROS negative except the above Past Medical History Past Medical History: Fibromyalgia, GERD/Reflux, Hyperlipidemia Additional Past Medical History / Comment(s): Pt states in the pase she accidentally injected too much submatriptan for migraine and had a reaction and was told by her physician she may have had a small VA, past GERD, cluster heada ches, IBS, diverticular disease, bronchitis. History of Any Multi-Drug Resistant Organisms: None Reported Past Surgical History: Hysterectomy Additional Past Surgical History / Comment(s): Colonoscopies/EGDs Past Anesthesia/Blood Transfusion Reactions: No Reported Reaction Past Psychological History: Anxiety, Depression Additional Psychological History / Comment(s): Pt resides with her spouse. She is independent. Smoking Status: Light tobacco smoker Past Alcohol Use History: Occasional Additional Past Alcohol Use History / Comment(s): Pt started smoking in 1981, 1 ppd, but for pst few weeks has cut down to one pack per week. She states she drinks alcohol 4 days of the week and more than 7 drinks per week. Past Drug Use History: Marijuana Additional Drug Use History / Comment(s): Pt smokes marijuana occasionally - Past Family History Mother Family Medical History: No Reported History Additional Family Medical History / Comment(s): Mother is healthy and is 81 yrs old. Father Family Medical History: No Reported History Additional Family Medical History / Comment(s): Father is 74 and healthy Medications and Allergies Home Medications Medication Instructions Recorded Confirmed Type Atorvastatin [Lipitor] 10 mg PO HS 10/26/19 10/26/19 History DULoxetine HCL [Cymbalta] 60 mg PO HS 10/26/19 10/26/19 History Naproxen 500 mg PO DAILY PRN 10/26/19 10/26/19 History Topiramate 100 mg PO BID 10/26/19 10/26/19 History clonazePAM [KlonoPIN] 2 mg PO HS 10/26/19 10/26/19 History Allergies Allergy/AdvReac Type Severity Reaction Status Date / Time No Known Allergies Allergy Verified 10/26/19 07:32 Physical Exam Vitals: Vital Signs Temp Pulse Pulse Pulse Resp BP BP 10/26/19 16:00 97.9 F 10/26/19 15:20 77 20 118/76 10/26/19 14:20 67 20 118/76 10/26/19 13:20 71 20 129/78 10/26/19 12:50 68 20 129/76 10/26/19 12:20 78 20 122/85 10/26/19 12:05 76 20 128/86 10/26/19 11:50 70 20 118/84 10/26/19 11:35 20 119/71 10/26/19 08:24 86 16 129/89 10/26/19 07:15 76 16 135/101 10/26/19 06:49 82 10/26/19 06:30 98.1 F 98 20 124/86 Pulse Ox 10/26/19 16:00 10/26/19 15:20 95 10/26/19 14:20 96 10/26/19 13:20 95 10/26/19 12:50 95 10/26/19 12:20 96 10/26/19 12:05 97 10/26/19 11:50 98 10/26/19 11:35 97 10/26/19 08:24 99 10/26/19 07:15 99 10/26/19 06:49 10/26/19 06:30 98 Intake and Output 10/26/19 10/26/19 10/26/19 06:59 14:59 22:59 Intake Total 336.5 Balance 336.5 Intake: IV 336.5 Other: # Voids 1 Weight 81.647 kg 81.647 kg PHYSICAL EXAMINATION: Patient is lying in the bed comfortably, no acute distress, awake alert and oriented.. HEENT: Normocephalic. Neck is supple. Pupils reactive. Nostrils clear. Oral cavity is moist. Ears reveal no drainage. Neck reveals no JVD, carotid bruits, or thyromegaly. CHEST EXAMINATION: Trachea is central. Symmetrical expansion. bibasilar dimin ished air entry.Lung lazo clear to auscultation and percussion. CARDIAC: Normal S1, S2 with no gallops. No murmurs ABDOMEN: Soft. Bowel sounds normal. No organomegaly. No abdominal bruits. Extremities: reveal no edema. No clubbing or cyanosis Neurologically awake, alert, oriented x3 with well-coordinated movements. No focal deficits noted Skin: No rash or skin lesions. Psychiatric: Coperative. Nonsuicidal Musculoskeletal: No joint swelling or deformity. Normal range of motion. Results CBC & Chem 7: 10/26/19 06:39 10/26/19 06:39 Labs: Abnormal Lab Results - Last 24 Hours (Table) 10/26/19 10/26/19 10/26/19 Range/Units 06:39 06:39 06:39 Hct 47.1 H (34.0-46.0) % Chloride 110 H (98-107) mmol/L Carbon Dioxide 20 L (22-30) mmol/L BUN 22 H (7-17) mg/dL Glucose 121 H (74-99) mg/dL AST 59 H (14-36) U/L ALT 72 H (4-34) U/L Troponin I 1.790 H* (0.000-0.034) ng/mL Thrombosis Risk Factor Assmnt - DVT/VTE Prophylaxis DVT/VTE Prophylaxis: Pharmacologic Prophylaxis ordered - Choose All That Apply Any of the Below Risk Factors Present?: Yes Each Factor Represents 1 point: Acute VA, Age 41-60 years, Obesity (BMI >25) Other Risk Factors: No Other congenital or acquired thrombophilia - If yes, enter type in comment: No Thrombosis Risk Factor Assessment Total Risk Factor Score: 3 Thrombosis Risk Factor Assessment Level: Moderate Risk Assessment and Plan Assessment: acute non-ST elevated VA status post cardiac catheterization and stenting of RCA chest pain with elevated troponin levels Hyperlipidemia Fibromyalgia GERD Anxiety/depression Ongoing nicotine addiction History of marijuana use DVT prophylaxis Plan: Patient will be continued on telemetry monitoring. Continue with aspirin. Heparin drip has been discontinued and patient was started on Prasugrel.also started on beta blockers. Continue the home medications and follow up closely. Cardiology is on board. Further recommendations based on the clinical course. Smoking cessation has been counseled extensively. Time with Patient: Greater than 30
[2019-10-26] MEDS: DULoxetine HCL 60 MG CAPSULE.DR PO SCH (21:04)
[2019-10-26] MEDS: clonazePAM 1 MG TAB PO SCH (21:04)
[2019-10-26] MEDS: TOPIRAMATE 50 MG TAB PO SCH (21:04)
[2019-10-27 06:29] LABS: Basophils # (A) 0.1 k/uL (0-0.2); Basophils % (A) 1 %; Eosinophils # (A) 0.3 k/uL (0-0.7); Eosinophils % (A) 4 %; HCT 42.3 % (34.0-46.0); HGB 13.9 gm/dL (11.4-16.0); Lymphocytes # (A) 2.2 k/uL (1.0-4.8); Lymphocytes % (A) 25 %; MCH 33.4 pg (25.0-35.0); MCHC 32.8 g/dL (31.0-37.0); MCV 101.8 fL (80.0-100.0); Mean Platelet Volume 6.9; Monocytes # (A) 0.4 k/uL (0-1.0); Monocytes % (A) 4 %; Neutrophils % (A) 65 %; Platelet Count 333 k/uL (150-450); RBC 4.15 m/uL (3.80-5.40); RDW 11.8 % (11.5-15.5); WBC 9.2 k/uL (3.8-10.6)
[2019-10-27 06:38] LABS: Calcium 9.2 mg/dL (8.4-10.2); Potassium 4.6 mmol/L (3.5-5.1)
[2019-10-27] MEDS: PRASUGREL 10 MG TAB PO SCH (08:52)
[2019-10-27] MEDS: METOPROLOL TARTRATE 25 MG TAB PO SCH ×2 (08:52→20:46)
[2019-10-27] MEDS: ASPIRIN 81 MG PO SCH (08:52)
[2019-10-27] MEDS: TOPIRAMATE 50 MG TAB PO SCH ×2 (08:52→20:46)
[2019-10-27] MEDS ORDERED: ASPIRIN 325 MG TAB PO SCH (09:00)
--- NOTE | 2019-10-27 14:48 | P.PN ---
Subjective Progress Note Date: 10/27/19 this is a pleasant 49-year-old female with history of hyperlipidemia,nicotine dependence, anxiety and depression who presented to the emergency room with symptoms of left arm pain with radiation to the chest, and across her upper back and interscapular region. Patient has been experiencing symptoms off and on, progressively worsening over the past week or more. Patient does get associated diaphoresis and short of breath with these symptoms. According to the patient, she did not recognize her even think that this would be her heart. The night before presentation here she states was the worst of the symptoms, she took 2 Xanax hoping it would alleviate the symptoms however they continued to worsen and she came to the emergency room for further evaluation and treatment.her initial EKG on presentation here showed a normal sinus rhythm with inferior T-wave inversion.chest x-ray did not reveal any acute cardiopulmonary process.blood pressure 130/80 with a heart rate in the 80s, 99% on room air.White blood cell count 9.7, hemoglobin 15.5, platelet count 334, d- dimer 0.4. Sodium 139, potassium 4.5, BUN 22, creatinine 0.8, magnesium 2.1. AST 59, ALT 72.Initial troponin on presentation here 1.7.at the time of my examination this morning, patient was seen in the emergency room, she is currently chest pain-free, on IV heparin. 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 Patient underwentexcept for stenting of the proximal RCA. she was seen and examined this morning, she does well, hemodynamically she is stable, denies any chest discomfort just states that she feels tired today.cardiogram with Doppler study revealed an ejection fraction of 50-55%, basal lateral and inferior wall was hypokinetic.White blood cell count 9.2, hemoglobin 13.9, platelet count 333. Sodium 139, potassium 4.6, BUN 16, creatinine 0.9.we'll continue the patient on a baby aspirin daily,Lipitor 80 mg daily,metoprolol 25 mg by mouth twice a day, Effient 10 mg daily, we will also add small dose of EDY inhibitor. Continue to monitor for 24 hours and plan for possible discharge home tomorrow if stable. Objective - Vital Signs Vital signs: Vital Signs Temp 97.3 F L 10/27/19 11:57 Pulse 63 10/27/19 11:57 Resp 16 10/27/19 11:57 BP 118/59 10/27/19 11:57 Pulse Ox 98 10/27/19 11:57 Intake & Output 10/26/19 10/27/19 10/27/19 18:59 06:59 18:59 Intake Total 576.5 100 480 Balance 576.5 100 480 Weight 81.647 kg 78.7 kg Intake: IV 336.5 Intake, IV Titration 100 Amount Sodium Chloride 0.9% 1, 100 000 ml @ 100 mls/hr IV . Q10H [facility] Rx#:[id number] Oral 240 480 Other: Voiding Method Toilet # Voids 1 1 1 - Exam PHYSICAL EXAMINATION: GENERAL:49-year-old female in no acute distress at the time of my examination HEENT: Head is atraumatic, normocephalic. Pupils equal, round. Sclera anicteric. Conjunctiva are clear. Mucous membranes of the mouth are moist. Neck is supple. There is no elevated jugular venous pressure.no carotid bruit is heard. HEART EXAMINATION: [Heart S1, S2 normal. No murmur or gallop heard.] CHEST EXAMINATION:[ Lungs are clear to auscultation and precussion. No chest wall tenderness is noted on palpation or with deep breathing.] ABDOMEN: [ Soft, nontender. Bowel sounds are heard. No organomegaly noted]. EXTREMITIES:[ 2+ peripheral pulses with no evidence of peripheral edema and no calf tenderness noted].right groin is soft, no evidence of any hematoma NEUROLOGIC [patient is awake, alert and oriented 3.] . - Labs CBC & Chem 7: 10/27/19 05:55 10/27/19 05:55 Labs: Abnormal Lab Results - Last 24 Hours (Table) 10/27/19 10/27/19 Range/Units 05:55 05:55 MCV 101.8 H (80.0-100.0) fL Chloride 109 H (98-107) mmol/L Glucose 105 H (74-99) mg/dL Assessment and Plan Plan: Assessment and plan #1 symptoms of left arm and chest discomfort with associated diaphoresis and nausea, initial troponin 1.7. EKG shows normal sinus rhythm with ST-T wave changes noted in the inferior leads. Clinical picture suggestive of non-STEMI, status post stenting of the RCA #2 hyperlipidemia #3 nicotine dependence #4 anxiety and depression Plan we will add an EDY inhibitor to the patient's medication regime. Continue to monitor for 24 hours and plan for possible discharge home in the morning if stable. DNP note has been reviewed, I agree with a documented findings and plan of care. Patient was seen and examined.
[2019-10-27] MEDS ORDERED: ACETAMINOPHEN TAB 325 MG TAB PO PRN (17:37)
[2019-10-27] MEDS ORDERED: MORPHINE SULFATE 2 MG/ML SYRINGE IVP STA (17:49)
[2019-10-27] MEDS: DULoxetine HCL 60 MG CAPSULE.DR PO SCH (20:46)
[2019-10-27] MEDS: clonazePAM 1 MG TAB PO SCH (20:46)
[2019-10-27] MEDS ORDERED: ATORVASTATIN 80 MG TAB PO SCH (21:00)
[2019-10-28 03:38] VITALS: RESP 18
[2019-10-28] MEDS: METOPROLOL TARTRATE 25 MG TAB PO SCH (08:22)
[2019-10-28] MEDS: PRASUGREL 10 MG TAB PO SCH (08:23)
[2019-10-28] MEDS: ASPIRIN 81 MG PO SCH (08:23)
[2019-10-28] MEDS: TOPIRAMATE 50 MG TAB PO SCH (08:24)
[2019-10-28] MEDS ORDERED: LISINOPRIL 2.5 MG TAB PO SCH (09:00)
[2019-10-28 11:42] VITALS: BP 107/65; PULSE 87; TEMP 98
--- NOTE | 2019-10-28 12:52 | PN ---
PROGRESS NOTE This patient was admitted with a non-Q-wave myocardial infarction. Patient is doing better, denies any chest pain, shortness of breath. Her right groin is normal. First and second heart sounds are normal. Lungs are clear to auscultation and percussion. Patient will be discharged home. She is advised about smoking. We will continue her on aspirin and Effient. MMODL / IJN: [id number] /
== END 2019-10-28 14:30 | disposition home or self-care (01) | DRG 247 ==
LOC: EC 06:25 → 3SCARD 08:27
PROVIDERS: ADMIT Hospitalist; ATTEND Hospitalist
PROC: 027034Z Dilation of Coronary Artery, One Artery with Drug-eluting Intraluminal Device, Percutaneous Approach (ICD-10-PCS; principal; 2019-10-26 14:15)
PROC: B2111ZZ Fluoroscopy of Multiple Coronary Arteries using Low Osmolar Contrast (ICD-10-PCS; 2019-10-26 14:15)
PROC: B2151ZZ Fluoroscopy of Left Heart using Low Osmolar Contrast (ICD-10-PCS; 2019-10-26 14:15)
PROC: 4A023N7 Measurement of Cardiac Sampling and Pressure, Left Heart, Percutaneous Approach (ICD-10-PCS; 2019-10-26 14:15)
DX: I21.4 Non-ST elevation (NSTEMI) myocardial infarction (principal); E78.5 Hyperlipidemia, unspecified; F17.200 Nicotine dependence, unspecified, uncomplicated; F32.9 Major depressive disorder, single episode, unspecified; F41.9 Anxiety disorder, unspecified; I25.10 Atherosclerotic heart disease of native coronary artery without angina pectoris; I25.2 Old myocardial infarction; K21.9 Gastro-esophageal reflux disease without esophagitis; M79.7 Fibromyalgia; Z79.02 Long term (current) use of antithrombotics/antiplatelets; Z79.82 Long term (current) use of aspirin; Z79.899 Other long term (current) drug therapy; Z90.710 Acquired absence of both cervix and uterus
CPT/HCPCS: 36415; 71046; 80048; 80053; 83690; 83735; 84484; 85025; 85379; 85610; 85730; 93005; 93306; 93458; 96365; 96375; 96376; 99291; C1874

== ENCOUNTER 2019-11-03 00:11 | Inpatient (IN) | payer BC ==
[2019-11-03] MEDS ORDERED: ASPIRIN 81 MG PO STA (00:15)
[2019-11-03 00:40] LABS: Basophils # (A) 0.1 k/uL (0-0.2); Basophils % (A) 1 %; Eosinophils # (A) 0.4 k/uL (0-0.7); Eosinophils % (A) 5 %; HGB 13.1 gm/dL (11.4-16.0); Lymphocytes # (A) 2.6 k/uL (1.0-4.8); Lymphocytes % (A) 31 %; MCHC 32.8 g/dL (31.0-37.0); MCV 97.8 fL (80.0-100.0); Mean Platelet Volume 6.9; Monocytes # (A) 0.5 k/uL (0-1.0); Monocytes % (A) 6 %; Neutrophils # (A) 4.6 k/uL (1.3-7.7); Neutrophils % (A) 55 %; Platelet Count 311 k/uL (150-450); RBC 4.09 m/uL (3.80-5.40); RDW 11.3 % (11.5-15.5); WBC 8.3 k/uL (3.8-10.6)
--- NOTE | 2019-11-03 00:41 | XR ---
EXAMINATION TYPE: XR chest 2V DATE OF EXAM: 11/03/2019 COMPARISON: 10/26/2019 HISTORY: Chest pain TECHNIQUE: 2 views FINDINGS: There is some linear density at the lung bases with poor inspiration. There is no heart emile lure. Heart size is normal. There is no sign of pleural effusion. Bony thorax is intact. IMPRESSION: There is some atelectasis at the lung bases that appears new compared to old exam. No hea rt failure seen. Inspiration decreased compared to old exam.
[2019-11-03] MEDS ORDERED: SODIUM CHLORIDE 0.9% 1,000 ML IV ONE (00:51)
[2019-11-03 00:54] LABS: Calcium 8.9 mg/dL (8.4-10.2); Magnesium 2.2 mg/dL (1.6-2.3); Potassium 4.1 mmol/L (3.5-5.1); Total Bilirubin 0.3 mg/dL (0.2-1.3); Total Protein 6.8 g/dL (6.3-8.2)
--- NOTE | 2019-11-03 00:54 | ED ---
Chest Pain HPI - General Chief Complaint: Chest Pain Stated Complaint: Chest Pain Time Seen by Provider: 11/03/19 00:14 Source: EMS Mode of arrival: EMS Limitations: no limitations - History of Present Illness Initial Comments: Bryan is a pleasant 49-year-old female who was admitted to the hospital last week for an instant me she subsequently underwent cardiac stenting and was discharged home. Patient reports she's been compliant with all of her medications including aspirin and thinners. Patient states that this evening she began experiencing pressure-like chest pain and feeling like she can't take a deep breath. Patient reports a sensation of tightness around her chest. Patient states she's never experienced anything like this before. She didn't experience any pain like this with her and STEMI last week. Patient reports minimal nonproductive coughing consistent with her usual smoker's cough, patient states that she's been trying to quit smoking his been using the patch is to decrease cigarette use. - Related Data Home Medications Medication Instructions Recorded Confirmed DULoxetine HCL [Cymbalta] 120 mg PO HS 10/26/19 10/27/19 Topiramate 100 mg PO BID 10/26/19 10/26/19 clonazePAM [KlonoPIN] 2 mg PO HS 10/26/19 10/26/19 Previous Rx's Medication Instructions Recorded Aspirin 81 mg PO DAILY #30 chew 10/28/19 Atorvastatin [Lipitor] 80 mg PO HS #30 tab 10/28/19 Lisinopril [Zestril] 2.5 mg PO DAILY #30 tab 10/28/19 Metoprolol Tartrate [Lopressor] 25 mg PO BID #60 tab 10/28/19 Nicotine 14Mg/24Hr Patch [Habitrol] 1 patch TRANSDERM DAILY #28 patch 10/28/19 Nitroglycerin Sl Tabs [Nitrostat] 0.4 mg SUBLINGUAL Q5M PRN #25 tab 10/28/19 Prasugrel [Effient] 10 mg PO DAILY #30 tab 10/28/19 Allergies Allergy/AdvReac Type Severity Reaction Status Date / Time No Known Allergies Allergy Verified 10/26/19 07:32 Review of Systems ROS Statement: Those systems with pertinent positive or pertinent negative responses have been documented in the HPI. ROS Other: All systems not noted in ROS Statement are negative. EKG Findings - EKG Comments: EKG Findings:: EKG was obtained due to complaint of chest pain, EKG was obtained 12:16 AM, rate is 76 rhythm is normal sinus, normal axis, normal intervals, MS 144, QRS 88, QTC is 445. No acute ST elevations or depressions no evidence of acute ischemia or infarction. Past Medical History Past Medical History: Fibromyalgia, GERD/Reflux, Hyperlipidemia, Myocardial Infarction (CT) Additional Past Medical History / Comment(s): Pt states in the pase she accidentally injected too much submatriptan for migraine and had a reaction and was told by her physician she may have had a small CT, past GERD, cluster headaches, IBS, diverticular disease, bronchitis. History of Any Multi-Drug Resistant Organisms: None Reported Past Surgical History: Heart Catheterization With Stent, Hysterectomy Additional Past Surgical History / Comment(s): Colonoscopies/EGDs Past Anesthesia/Blood Transfusion Reactions: No Reported Reaction Past Psychological History: Anxiety, Depression Smoking Status: Light tobacco smoker Past Alcohol Use History: Occasional Past Drug Use History: Marijuana - Past Family History Mother Family Medical History: No Reported History Additional Family Medical History / Comment(s): Mother is healthy and is 81 yrs old. Father Family Medical History: No Reported History Additional Family Medical History / Comment(s): Father is 74 and healthy General Exam - General Exam Comments Initial Comments: Physical Exam GENERAL: Patient is well-developed and well-nourished. Patient is nontoxic and well- hydrated and is in no distress. HENT: Normocephalic, Atraumatic. EYES: PERRL, EOMI PULMONARY: Unlabored respirations. No audible rales rhonchi or wheezing was noted. CARDIOVASCULAR: There is a regular rate and rhythm without any murmurs gallops or rubs. ABDOMEN: Soft and nontender with normal bowel sounds. SKIN: Skin is clear with no lesions or rashes and otherwise unremarkable. : Deferred NEUROLOGIC: Patient is alert and oriented x3. Moving all extremities spontaneously MUSCULOSKELETAL: Normal extremities with adequate strength and full range of motion. No lower extremity swelling or edema. No calf tenderness. PSYCHIATRIC: Normal psychiatric evaluation. Limitations: no limitations Course Vital Signs 11/03/19 11/03/19 11/03/19 00:13 01:03 01:44 Temperature 98 F 98.6 F 97.5 F L Pulse Rate 74 88 Pulse Rate [ 72 Pulse Oximetery ] Respiratory 18 18 18 Rate Blood Pressure 104/66 95/66 Blood Pressure 103/69 [Right Arm] O2 Sat by Pulse 96 98 98 Oximetry Chest Pain MDM - MDM Patient was seen and evaluated history was obtained from patient patient had aspirin prior to arrival patient declining measured due to current headache EKG was nonischemic however labs and imaging were ordered labs revealed mildly elevated troponin, considering the patient's history and current chest pain 78 feel she would benefit from admission to the hospital. Patient was started on heparin and admitted with cardiology on consult. Disposition Clinical Impression: Chest pain Disposition: ADMITTED IP TO THIS HOSP Condition: Stable Is patient prescribed a controlled substance at d/c from ED?: No
[2019-11-03 01:00] LABS: INR 0.9 (<1.2); Partial Thromboplastin Time 25.7 sec (22.0-30.0); Prothrombin Time 9.4 sec (9.0-12.0)
[2019-11-03] MEDS ORDERED: HEPARIN SODIUM,PORCINE 5,000 UNIT/ML 1 ML VIAL IV PRN (01:32)
[2019-11-03] MEDS ORDERED: HEPARIN SODIUM,PORCINE 5,000 UNIT/ML 1 ML VIAL IV ONE (01:32)
[2019-11-03] MEDS ORDERED: NITROGLYCERIN SL TABS 0.4 MG TAB SUBLINGUAL PRN (01:33)
[2019-11-03] MEDS: SODIUM CHLORIDE 0.9% 1,000 ML IV SCH ×2 (02:02→15:57)
[2019-11-03] MEDS: HEPARIN SOD,PORK IN 0.45% NACL 25,000 UNIT in 0.45% NACL 1 250ML.BAG IV SCH (02:02)
[2019-11-03] MEDS: MORPHINE SULFATE 4 MG/ML SYRINGE IV PRN (02:40)
[2019-11-03] MEDS ORDERED: LISINOPRIL 10 MG TAB PO SCH (09:00)
[2019-11-03] MEDS: ATORVASTATIN 80 MG TAB PO SCH (09:45)
[2019-11-03] MEDS: METOPROLOL TARTRATE 25 MG TAB PO SCH ×2 (09:45→21:14)
[2019-11-03] MEDS ORDERED: ALBUTEROL NEBULIZED 2.5 MG/3 ML INHALATION PRN (10:18)
--- NOTE | 2019-11-03 12:06 | P.HPIM ---
History of Present Illness 49-year-old female came in with compensative chest pain which started yesterday started for few hours, nonradiating is is with lightheadedness moderate amount of chest pain and tightness patient had a recent STEMI last week patient u nderwent cardiac ablation stenting patient although denies smoking that much appears to be smoking and that did drink a couple glasses of wine and cutting down on alcohol quite a bit she said and she is to drink on daily basis. Denied any fever chills patient denied any radiation of the chest pain. Patient pain is sharp as well. some EKG showed normal sinus rhythm minimally elevated troponin. Patient has been using nicotine patch sign to quit smoking altogether she denies any shadows but denies any history of COPD Review of Systems REVIEW OF SYSTEMS: CONSTITUTIONAL: No fever, no malaise, no fatigue. HEENT: No recent visual problems or hearing problems. Denied any sore throat. CARDIOVASCULAR: No orthopnea, PND, no palpitations, no syncope. PULMONARY: No shortness of breath, no cough, no hemoptysis. GASTROINTESTINAL: No diarrhea, no nausea, no vomiting, no abdominal pain. NEUROLOGICAL: No headaches, no weakness, no numbness. HEMATOLOGICAL: Denies any bleeding or petechiae. GENITOURINARY: Denies any burning micturition, frequency, or urgency. MUSCULOSKELETAL/RHEUMATOLOGICAL: Denies any joint pain, swelling, or any muscle pain. ENDOCRINE: Denies any polyuria or polydipsia. The rest of the 14-point review of systems is negative. Past Medical History Past Medical History: Fibromyalgia, GERD/Reflux, Hyperlipidemia, Myocardial Infarction (AL) Additional Past Medical History / Comment(s): Pt states in the pase she accidentally injected too much submatriptan for migraine and had a reaction and was told by her physician she may have had a small AL, past GERD, cluster headaches, IBS, diverticular disease, bronchitis. Last Myocardial Infarction Date:: 10/26/19 History of Any Multi-Drug Resistant Organisms: None Reported Past Surgical History: Heart Catheterization With Stent, Hysterectomy Additional Past Surgical History / Comment(s): Colonoscopies/EGDs Past Anesthesia/Blood Transfusion Reactions: No Reported Reaction Date of Last Stent Placement:: 10/26/19 Past Psychological History: Anxiety, Depression Smoking Status: Light tobacco smoker Past Alcohol Use History: Occasional Past Drug Use History: Marijuana - Past Family History Mother Family Medical History: No Reported History Additional Family Medical History / Comment(s): Mother is healthy and is 81 yrs old. Father Family Medical History: No Reported History Additional Family Medical History / Comment(s): Father is 74 and healthy Medications and Allergies Home Medications Medication Instructions Recorded Confirmed Type DULoxetine HCL [Cymbalta] 60 mg PO HS 10/26/19 11/03/19 History Topiramate 100 mg PO BID 10/26/19 11/03/19 History clonazePAM [KlonoPIN] 2 mg PO HS 10/26/19 11/03/19 History Aspirin 81 mg PO DAILY #30 chew 10/28/19 11/03/19 Rx Atorvastatin [Lipitor] 80 mg PO HS #30 tab 10/28/19 11/03/19 Rx Lisinopril [Zestril] 2.5 mg PO DAILY #30 tab 10/28/19 11/03/19 Rx Metoprolol Tartrate [Lopressor] 25 mg PO BID #60 tab 10/28/19 11/03/19 Rx Nicotine 14Mg/24Hr Patch [Habitrol] 1 patch TRANSDERM DAILY #28 patch 10/28/19 11/03/19 Rx Nitroglycerin Sl Tabs [Nitrostat] 0.4 mg SUBLINGUAL Q5M PRN #25 tab 10/28/19 11/03/19 Rx Prasugrel [Effient] 10 mg PO DAILY #30 tab 10/28/19 11/03/19 Rx Albuterol Inhaler [Ventolin Hfa 2 puff INHALATION RT-Q6H PRN 11/03/19 11/03/19 History Inhaler] Allergies Allergy/AdvReac Type Severity Reaction Status Date / Time No Known Allergies Allergy Verified 10/26/19 07:32 Physical Exam Vitals: Vital Signs Temp Pulse Pulse Resp BP BP Pulse Ox 11/03/19 08:00 98.0 F 70 16 103/56 97 11/03/19 03:36 97.8 F 70 18 104/67 100 11/03/19 01:44 97.5 F L 72 18 103/69 98 11/03/19 01:03 98.6 F 88 18 95/66 98 11/03/19 00:13 98 F 74 18 104/66 96 Intake and Output 11/02/19 11/03/19 11/03/19 22:59 06:59 14:59 Other: Voiding Method Toilet Weight 79.2 kg PHYSICAL EXAMINATION: GENERAL: The patient is alert and oriented x3, not in any acute distress. Well developed, well nourished. HEENT: Pupils are round and equally reacting to light. EOMI. No scleral icterus. No conjunctival pallor. Normocephalic, atraumatic. No pharyngeal erythema. No thyromegaly. CARDIOVASCULAR: S1 and S2 present. No murmurs, rubs, or gallops. PULMONARY: Chest is clear to auscultation, no wheezing or crackles. ABDOMEN: Soft, nontender, nondistended, normoactive bowel sounds. No palpable organomegaly. MUSCULOSKELETAL: No joint swelling or deformity. EXTREMITIES: No cyanosis, clubbing, or pedal edema. NEUROLOGICAL: Gross neurological examination did not reveal any focal deficits. SKIN: No rashes. Results CBC & Chem 7: 11/03/19 00:26 11/03/19 00:26 Labs: Abnormal Lab Results - Last 24 Hours (Table) 11/03/19 11/03/19 11/03/19 Range/Units 00:26 00:26 00:26 RDW 11.3 L (11.5-15.5) % APTT (22.0-30.0) sec Chloride 110 H (98-107) mmol/L BUN 19 H (7-17) mg/dL Glucose 105 H (74-99) mg/dL Troponin I 0.038 H* (0.000-0.034) ng/mL 11/03/19 Range/Units 07:41 RDW (11.5-15.5) % APTT 72.4 H (22.0-30.0) sec Chloride (98-107) mmol/L BUN (7-17) mg/dL Glucose (74-99) mg/dL Troponin I (0.000-0.034) ng/mL Thrombosis Risk Factor Assmnt - Choose All That Apply Each Factor Represents 1 point: Age 41-60 years Thrombosis Risk Factor Assessment Total Risk Factor Score: 1 Thrombosis Risk Factor Assessment Level: Low Risk Assessment and Plan Plan: -Chest pain possibly of unstable angina, cardiology will evaluate the patient patient will be started on dual antiplatelet therapy nicotine cessation counseling was pointed patient will be started on statin and beta shar. Patient blood pressure is low because of which I will hold off on the lisinopril and she had normal ejection fraction the past -Fibromyalgia - Gastroesophageal reflux disease -Hyperlipidemia.
--- NOTE | 2019-11-03 12:28 | P.CRDCN ---
History of Present Illness Consult date: 11/03/19 History of present illness: This is a 49-year-old female with history of hyperlipidemia, smoking anxiety and depression who was admitted to the hospital with upper back and interscapular pain of on October 26. EKG at that time showed sinus rhythm with the inferior T wave inversion. Her initial troponin was 1.7 at the time. Subsequently she had a cardiac catheterization. This revealed total occlusion of the proximal right coronary artery and the distal RCA was filled by collateral from the left anterior descending. Mid left anterior descending coronary artery has 40% stenosis. Circumflex was normal. Patient was discharged home in a stable condition. Patient complains of sharp pain on the left side of the chest that lasted several hours last night and patient is also feeling that she is not getting enough breath and short of breath. He had because of the symptoms patient came to the emergency room. EKG showed a sinus rhythm with evidence of possible old inferior wall [place] without any acute changes. Cardiac enzymes showed borderline elevated first troponin. D-dimer is negative. Patient's pains appear to be atypical. We will proceed with Lexiscan stress test tomorrow. If that is normal patient could be discharged home. Echo Cardigan showed an ejection fraction of 50-55% with the hypokinesis of the basal inferior and lateral wall. Review of Systems As per the chart Past Medical History Past Medical History: Fibromyalgia, GERD/Reflux, Hyperlipidemia, Myocardial Infarction ([place]) Additional Past Medical History / Comment(s): Pt states in the pase she accidentally injected too much submatriptan for migraine and had a reaction and was told by her physician she may have had a small [place], past GERD, cluster headaches, IBS, diverticular disease, bronchitis. Last Myocardial Infarction Date:: 10/26/19 History of Any Multi-Drug Resistant Organisms: None Reported Past Surgical History: Heart Catheterization With Stent, Hysterectomy Additional Past Surgical History / Comment(s): Colonoscopies/EGDs Past Anesthesia/Blood Transfusion Reactions: No Reported Reaction Date of Last Stent Placement:: 10/26/19 Past Psychological History: Anxiety, Depression Smoking Status: Light tobacco smoker Past Alcohol Use History: Occasional Past Drug Use History: Marijuana - Past Family History Mother Family Medical History: No Reported History Additional Family Medical History / Comment(s): Mother is healthy and is 81 yrs old. Father Family Medical History: No Reported History Additional Family Medical History / Comment(s): Father is 74 and healthy Medications and Allergies Home Medications Medication Instructions Recorded Confirmed Type DULoxetine HCL [Cymbalta] 60 mg PO HS 10/26/19 11/03/19 History Topiramate 100 mg PO BID 10/26/19 11/03/19 History clonazePAM [KlonoPIN] 2 mg PO HS 10/26/19 11/03/19 History Aspirin 81 mg PO DAILY #30 chew 10/28/19 11/03/19 Rx Atorvastatin [Lipitor] 80 mg PO HS #30 tab 10/28/19 11/03/19 Rx Lisinopril [Zestril] 2.5 mg PO DAILY #30 tab 10/28/19 11/03/19 Rx Metoprolol Tartrate [Lopressor] 25 mg PO BID #60 tab 10/28/19 11/03/19 Rx Nicotine 14Mg/24Hr Patch [Habitrol] 1 patch TRANSDERM DAILY #28 patch 10/28/19 11/03/19 Rx Nitroglycerin Sl Tabs [Nitrostat] 0.4 mg SUBLINGUAL Q5M PRN #25 tab 10/28/19 11/03/19 Rx Prasugrel [Effient] 10 mg PO DAILY #30 tab 10/28/19 11/03/19 Rx Albuterol Inhaler [Ventolin Hfa 2 puff INHALATION RT-Q6H PRN 11/03/19 11/03/19 History Inhaler] Allergies Allergy/AdvReac Type Severity Reaction Status Date / Time No Known Allergies Allergy Verified 10/26/19 07:32 Physical Exam Vitals: Vital Signs Temp Pulse Pulse Resp BP BP Pulse Ox 11/03/19 08:00 98.0 F 70 16 103/56 97 11/03/19 03:36 97.8 F 70 18 104/67 100 11/03/19 01:44 97.5 F L 72 18 103/69 98 11/03/19 01:03 98.6 F 88 18 95/66 98 11/03/19 00:13 98 F 74 18 104/66 96 Intake and Output 11/02/19 11/03/19 11/03/19 22:59 06:59 14:59 Other: Voiding Method Toilet Weight 79.2 kg GENERAL EXAM: Patient is alert and oriented and doesn't appear to be in any acute distress HEENT: Normocephalic. Normal reaction of pupils, equal size, normal range of extraocular motion. No erythema or exudates in the throat. NECK: No masses, no nuchal rigidity. CHEST: No chest wall deformity. LUNGS: Equal air entry with no crackles or wheeze. HEART: S1 and S2 normal with no audible mumurs or gallops. Regular rhythm, femorals equal on both sides.. ABDOMEN: No hepatosplenomegaly, normal bowel sounds, no guarding or rigidity. SKIN: No rashes CENTRAL NERVOUS SYSTEM: No focal deficits. EXTREMITIES: No cyanosis, clubbing or edema. Results 11/03/19 00:26 11/03/19 00:26 Cardiac Enzymes 11/03/19 11/03/19 11/03/19 Range/Units 00:26 00:26 07:41 AST 29 (14-36) U/L Troponin I 0.038 H* 0.028 (0.000-0.034) ng/mL Coagulation 11/03/19 11/03/19 Range/Units 00:26 07:41 PT 9.4 (9.0-12.0) sec APTT 25.7 72.4 H (22.0-30.0) sec CBC 11/03/19 Range/Units 00:26 WBC 8.3 (3.8-10.6) k/uL RBC 4.09 (3.80-5.40) m/uL Hgb 13.1 (11.4-16.0) gm/dL Hct 40.0 (34.0-46.0) % Plt Count 311 (150-450) k/uL Comprehensive Metabolic Panel 11/03/19 Range/Units 00:26 Sodium 142 (137-145) mmol/L Potassium 4.1 (3.5-5.1) mmol/L Chloride 110 H (98-107) mmol/L Carbon Dioxide 24 (22-30) mmol/L BUN 19 H (7-17) mg/dL Creatinine 0.90 (0.52-1.04) mg/dL Glucose 105 H (74-99) mg/dL Calcium 8.9 (8.4-10.2) mg/dL AST 29 (14-36) U/L ALT 32 (4-34) U/L Alkaline Phosphatase 108 (38-126) U/L Total Protein 6.8 (6.3-8.2) g/dL Albumin 4.0 (3.5-5.0) g/dL Current Medications Generic Name Dose Route Start Last Admin Trade Name Freq PRN Reason Stop Dose Admin Albuterol Sulfate 2.5 mg 11/03/19 10:18 Ventolin Nebulized INHALATION RT-Q6H PRN Shortness Of Breath Aminophylline 100 mg 11/04/19 09:00 Aminophylline IV ONCE PRN Patient Response Aspirin 325 mg 11/04/19 09:00 Aspirin PO DAILY DAYSI Atorvastatin Calcium 80 mg 11/03/19 09:00 11/03/19 09:45 Lipitor PO 80 mg DAILY DAYSI Administration Caffeine Citrate 60 mg 11/04/19 09:00 Cafcit Inj IV ONCE PRN Patient Response Clonazepam 1 mg 11/03/19 10:18 Klonopin PO HS PRN Insomnia Duloxetine HCl 60 mg 11/03/19 21:00 Cymbalta PO HS DAYSI Heparin Sodium (Porcine) 0 unit 11/03/19 01:32 Heparin IV PER PROTOCOL PRN Low PTT Protocol Sodium Chloride 1,000 mls @ 75 mls/hr 11/03/19 01:00 11/03/19 02:02 Saline 0.9% IV 75 mls/hr .[id number] DAYSI Administration Heparin Sodium/Sodium Chloride 250 mls @ 9.798 mls/hr 11/03/19 01:45 11/03/19 02:02 25,000 unit/ Sodium Chloride IV 12 units/kg/hr .Q24H DAYSI 9.798 mls/hr Administration Protocol 12 UNITS/KG/HR Metoprolol Tartrate 25 mg 11/03/19 09:00 11/03/19 09:45 Lopressor PO 25 mg BID DAYSI Administration Morphine Sulfate 4 mg 11/03/19 01:33 11/03/19 02:40 Morphine Sulfate (Inj) IV 4 mg Q5M PRN Administration Chest Pain Nitroglycerin 0.4 mg 11/03/19 01:33 Nitrostat SUBLINGUAL Q5M PRN Chest Pain Prasugrel 10 mg 11/04/19 09:00 Effient PO DAILY DAYSI Regadenoson 0.4 mg 11/04/19 09:00 Lexiscan IV 11/04/19 09:01 ONCE ONE Topiramate 100 mg 11/03/19 21:00 Topamax PO BID DAYSI Intake and Output 11/02/19 11/03/19 11/03/19 22:59 06:59 14:59 Other: Voiding Method Toilet Weight 79.2 kg 11/03/19 00:26 11/03/19 00:26 EKG Interpretations (text) Sinus rhythm with the old inferior wall [place] Assessment and Plan (1) Atypical chest pain Current Visit: Yes Status: Acute Code(s): R07.89 - OTHER CHEST PAIN SNOMED Code(s): 814276213 (2) Troponin level elevated Current Visit: Yes Status: Acute Code(s): R79.89 - OTHER SPECIFIED ABNORMAL FINDINGS OF BLOOD CHEMISTRY SNOMED Code(s): 244349101 (3) History of inferior wall myocardial infarction Current Visit: Yes Status: Acute Code(s): I25.2 - OLD MYOCARDIAL INFARCTION SNOMED Code(s): 751924948 Plan: Patient's pains are atypical. The elevation of the troponin could be related to recent [place] and also stent procedure. We'll proceed with the Lexiscan stress test tomorrow. If that is normal patient could be discharged home
[2019-11-03] MEDS ORDERED: CAFFEINE CITRATE 60 MG/3 ML VIAL IV PRN (12:36)
[2019-11-03] MEDS ORDERED: REGADENOSON 0.4 MG/5 ML SYRINGE IV ONE (12:36)
[2019-11-03] MEDS ORDERED: AMINOPHYLLINE 500 MG/20 ML VIAL IV PRN (12:36)
[2019-11-03] MEDS: clonazePAM 1 MG TAB PO PRN (21:14)
[2019-11-03] MEDS: TOPIRAMATE 100 MG TAB PO SCH (21:14)
[2019-11-03] MEDS: DULoxetine HCL 60 MG CAPSULE.DR PO SCH (21:14)
[2019-11-04] MEDS: HEPARIN SOD,PORK IN 0.45% NACL 25,000 UNIT in 0.45% NACL 1 250ML.BAG IV SCH (03:57)
[2019-11-04] MEDS: SODIUM CHLORIDE 0.9% 1,000 ML IV SCH ×2 (03:58→18:57)
[2019-11-04 07:40] LABS: Basophils # (A) 0.1 k/uL (0-0.2); Basophils % (A) 1 %; Eosinophils # (A) 0.2 k/uL (0-0.7); Eosinophils % (A) 4 %; HCT 39.1 % (34.0-46.0); HGB 12.5 gm/dL (11.4-16.0); Lymphocytes # (A) 1.9 k/uL (1.0-4.8); Lymphocytes % (A) 34 %; MCH 32.1 pg (25.0-35.0); MCHC 31.9 g/dL (31.0-37.0); MCV 100.6 fL (80.0-100.0); Mean Platelet Volume 7.1; Monocytes # (A) 0.3 k/uL (0-1.0); Monocytes % (A) 5 %; Neutrophils # (A) 2.9 k/uL (1.3-7.7); Neutrophils % (A) 53 %; Platelet Count 299 k/uL (150-450); RBC 3.89 m/uL (3.80-5.40); RDW 11.5 % (11.5-15.5); WBC 5.4 k/uL (3.8-10.6)
[2019-11-04 07:49] LABS: African American GFR (CKD) >90 (>60 ml/min/1.73 sqM); Anion Gap 5 mmol/L; Blood Urea Nitrogen 12 mg/dL (7-17); Calcium 8.6 mg/dL (8.4-10.2); Carbon Dioxide 24 mmol/L (22-30); Chloride 114 mmol/L (98-107); Cholesterol 135 mg/dL (<200); Glucose 97 mg/dL (74-99); HDL Cholesterol 50 mg/dL (40-60); LDL Cholesterol,Calculated 70 mg/dL (0-99); Non-African American GFR(CKD) 86 (>60 ml/min/1.73 sqM); Potassium 4.7 mmol/L (3.5-5.1); Sodium 143 mmol/L (137-145); Triglycerides 73 mg/dL (<150)
[2019-11-04] MEDS ORDERED: CAFFEINE CITRATE 60 MG/3 ML VIAL IV PRN ×2 (08:00→09:00)
[2019-11-04] MEDS ORDERED: SODIUM CHLORIDE 0.9% IV ONE ×2 (08:00)
[2019-11-04] MEDS ORDERED: AMINOPHYLLINE 500 MG/20 ML VIAL IV PRN ×2 (08:00→09:00)
[2019-11-04] MEDS ORDERED: AMINOPHYLLINE IV ONE (08:00)
[2019-11-04] MEDS ORDERED: DIPYRIDAMOLE IV ONE (08:00)
[2019-11-04] MEDS ORDERED: REGADENOSON 0.4 MG/5 ML SYRINGE IV ONE (09:00)
[2019-11-04] MEDS ORDERED: AMINOPHYLLINE 500 MG/20 ML VIAL IV ONE (10:02)
[2019-11-04] MEDS: ASPIRIN 325 MG TAB PO SCH (11:34)
[2019-11-04] MEDS: TOPIRAMATE 100 MG TAB PO SCH ×2 (11:34→21:25)
[2019-11-04] MEDS: PRASUGREL 10 MG TAB PO SCH (11:34)
[2019-11-04] MEDS: ATORVASTATIN 80 MG TAB PO SCH (11:35)
[2019-11-04] MEDS: METOPROLOL TARTRATE 25 MG TAB PO SCH ×2 (11:35→21:25)
--- NOTE | 2019-11-04 11:50 | NM ---
EXAMINATION TYPE: NM stress persantine cardiolit DATE OF EXAM: 11/04/2019 COMPARISON: NONE HISTORY: Chest pain TECHNIQUE: After the intravenous administration of 10.79 mCi Tc 99m Sestamibi - Cardiolite resting S PECT images acquired 100 minutes post injection. The patient received 45 mg Persantine, 26.9 mCi Tc 99m Sestamibi - Stress images obtained 35 minutes post injection FINDINGS: Review of stress and rest SPECT images demonstrates decreased apical uptake on stress as compared to rest images. Gated analysis shows normal wall motion with an estimated left ventricular ejection fra ction of 62 %. IMPRESSION: Pharmacologically induced left ventricular myocardial ischemia
--- NOTE | 2019-11-04 12:41 | EST ---
EXERCISE STRESS DATE OF SERVICE: 11/04/2019 AGE: 49 SEX: Female HT: 62" WT: 177 pounds PROTOCOL: Persantine Cardiolite STAGE: DURATION OF EXERCISE: HEART RATE REST: 60 BLOOD PRESSURE REST: 134/77 MAXIMUM HEART RATE ACHIEVED: 93 MAXIMUM BLOOD PRESSURE: 134/77 85% MPHR: 144 100% MPHR: 169 METS: INDICATIONS: Chest pain. CLINICAL INFORMATION: Baseline rhythm is sinus mechanism, rate 60, normal axis and intervals, nonspecific ST- T wave changes. Baseline blood pressure 134/77 mmHg. Patient received an infusion of dipyridamole per protocol. Electrocardiograph monitoring revealed no evidence of diagnostic ischemic ST deviation. Cardiolite was injected per protocol. CONCLUSION: 1. Nondiagnostic electrocardiograph response to dipyridamole infusion. 2. Nuclear images will be reported separately. MMODL / IJN: [id number] /
--- NOTE | 2019-11-04 14:55 | P.PN ---
Subjective Progress Note Date: 11/04/19 Principal diagnosis: 49-year-old female came in with compensative chest pain which started yesterday started for few hours, nonradiating is is with lightheadedness moderate amount of chest pain and tightness patient had a recent STEMI last week patient underwent cardiac ablation stenting patient although denies smoking that much appears to be smoking and that did drink a couple glasses of wine and cutting down on alcohol quite a bit she said and she is to drink on daily basis. Denied any fever chills patient denied any radiation of the chest pain. Patient pain is sharp as well. some EKG showed normal sinus rhythm minimally elevated troponin. Patient has been using nicotine patch sign to quit smoking altogether she denies any shadows but denies any history of COPD 11/04/2019 Patient is sitting up in bed and appears to be in no acute distress. Family at the bedside. Patient states that she is starving she has been nothing by mouth since midnight. She underwent a stress test today and per cardiology recommendations patient will undergo a cardiac catheterization in the morning. Currently patient denies any chest pain or palpitations. Patient states that she does have some shortness of breath and is unsure if it is anxiety related. Patient is afebrile. She denies any nausea or vomiting and has been nothing by mouth since midnight and would like to eat. Objective - Vital Signs Vital signs: Vital Signs Temp 97.8 F 11/04/19 03:05 Pulse 60 11/04/19 11:33 Resp 18 11/04/19 11:33 BP 135/80 11/04/19 11:33 Pulse Ox 96 11/04/19 11:33 Intake & Output 11/03/19 11/04/19 11/04/19 18:59 06:59 18:59 Intake Total 320 490 0 Balance 320 490 0 Weight 80.7 kg 80.7 kg Intake: Intake, IV Titration 250 Amount Heparin Sod,Pork in 0.45% 250 NaCl 25,000 unit In 0.45 % NaCl 1 250ml.bag @ 12 UNITS/KG/HR 9.798 mls/hr IV .Q24H [facility] Rx#: [id number] Oral 320 240 0 Other: Voiding Method Toilet Toilet Toilet # Voids 1 2 - Exam GENERAL: The patient is alert and oriented x3, not in any acute distress. Well developed, well nourished. HEENT: Pupils are round and equally reacting to light. EOMI. No scleral icterus. No conjunctival pallor. Normocephalic, atraumatic. No pharyngeal erythema. No thyromegaly. CARDIOVASCULAR: S1 and S2 present. No murmurs, rubs, or gallops. PULMONARY: Chest is clear to auscultation, no wheezing or crackles. ABDOMEN: Soft, nontender, nondistended, normoactive bowel sounds. No palpable organomegaly. MUSCULOSKELETAL: No joint swelling or deformity. EXTREMITIES: No cyanosis, clubbing, or pedal edema. NEUROLOGICAL: Gross neurological examination did not reveal any focal deficits. SKIN: No rashes. - Labs CBC & Chem 7: 11/04/19 06:10 11/04/19 06:10 Labs: Abnormal Lab Results - Last 24 Hours (Table) 11/04/19 11/04/19 11/04/19 Range/Units 06:10 06:10 06:10 MCV 100.6 H (80.0-100.0) fL APTT 58.0 H (22.0-30.0) sec Chloride 114 H (98-107) mmol/L Assessment and Plan Assessment: -Chest pain possibly of unstable angina, cardiology will evaluate the patient patient will be started on dual antiplatelet therapy nicotine cessation counseling was provided. patient will be started on statin and beta shar. Patient blood pressure is low because of which I will hold off on the lisinopril and she had normal ejection fraction the past -Fibromyalgia -Gastroesophageal reflux disease -Hyperlipidemia -DVT prophylaxis: Currently on a heparin drip and will continue at this time as patient is undergoing cardiac catheterization in the morning Plan: Patient underwent Persantine stress test today showing pharmacologically-induced left ventricular myocardial ischemia with an estimated left ventricular ejection fraction of 62%. Patient will undergo cardiac catheterization in the morning. Diet is being resumed for now and will be nothing by mouth again after midnight. Will continue to monitor closely. Further recommendations to follow. Possible discharge in 24-48 hours.
--- NOTE | 2019-11-04 16:19 | P.PN ---
Subjective Progress Note Date: 11/04/19 This is a 49-year-old female who was admitted with complaints of recurrence of chest pain. Patient was recently in the hospital with suggestion of inferior wall [place] and had stent placement of the total occluded right coronary artery. Patient was evaluated because of chest pains with Persantine stress test. This was reported as showing apical ischemia. Patient is advised to have further evaluation with cardiac catheterization. Spoke with the Dr. Dominguez. Being scheduled to have With him tomorrow. He is done stenting of the RCA recently Objective - Vital Signs Vital signs: Vital Signs Temp 97.8 F 11/04/19 03:05 Pulse 60 11/04/19 11:33 Resp 18 11/04/19 11:33 BP 135/80 11/04/19 11:33 Pulse Ox 96 11/04/19 11:33 Intake & Output 11/03/19 11/04/19 11/04/19 18:59 06:59 18:59 Intake Total 320 490 116.923 Balance 320 490 116.923 Weight 80.7 kg 80.7 kg Intake: Intake, IV Titration 250 116.923 Amount Heparin Sod,Pork in 0.45% 250 116.923 NaCl 25,000 unit In 0.45 % NaCl 1 250ml.bag @ 12 UNITS/KG/HR 9.798 mls/hr IV .Q24H [facility] Rx#: [id number] Oral 320 240 0 Other: Voiding Method Toilet Toilet Toilet # Voids 1 2 - Exam GENERAL EXAM: Patient is alert and oriented and doesn't appear to be in any acute distress HEENT: Normocephalic. Normal reaction of pupils, equal size, normal range of extraocular motion. No erythema or exudates in the throat. NECK: No masses, no nuchal rigidity. CHEST: No chest wall deformity. LUNGS: Equal air entry with no crackles or wheeze. HEART: S1 and S2 normal with no audible mumurs or gallops. Regular rhythm, femorals equal on both sides.. ABDOMEN: No hepatosplenomegaly, normal bowel sounds, no guarding or rigidity. SKIN: No rashes CENTRAL NERVOUS SYSTEM: No focal deficits. EXTREMITIES: No cyanosis, clubbing or edema. - Labs CBC & Chem 7: 11/04/19 06:10 11/04/19 06:10 Labs: Abnormal Lab Results - Last 24 Hours (Table) 11/04/19 11/04/19 11/04/19 Range/Units 06:10 06:10 06:10 MCV 100.6 H (80.0-100.0) fL APTT 58.0 H (22.0-30.0) sec Chloride 114 H (98-107) mmol/L Assessment and Plan (1) Atypical chest pain Current Visit: Yes Status: Acute Code(s): R07.89 - OTHER CHEST PAIN SNOMED Code(s): 456452158 (2) Troponin level elevated Current Visit: Yes Status: Acute Code(s): R79.89 - OTHER SPECIFIED ABNORMAL FINDINGS OF BLOOD CHEMISTRY SNOMED Code(s): 485636622 (3) History of inferior wall myocardial infarction Current Visit: Yes Status: Acute Code(s): I25.2 - OLD MYOCARDIAL INFARCTION SNOMED Code(s): 831222931 Plan: Patient's pains are atypical. The elevation of the troponin could be related to recent [place] and also stent procedure. We'll proceed with the Lexiscan stress test tomorrow. If that is normal patient could be discharged home. 11/04/2019: Patient stress test showed evidence of apical ischemia. Patient is still having intermittent chest pains. Being scheduled for a cardiac catheterization tomorrow.
[2019-11-04] MEDS: clonazePAM 1 MG TAB PO PRN (21:25)
[2019-11-04] MEDS: DULoxetine HCL 60 MG CAPSULE.DR PO SCH (21:25)
[2019-11-05] MEDS: MORPHINE SULFATE 4 MG/ML SYRINGE IV PRN ×2 (00:03→20:19)
[2019-11-05] MEDS: SODIUM CHLORIDE 0.9% 1,000 ML IV SCH ×2 (00:04→20:17)
[2019-11-05] MEDS: HEPARIN SOD,PORK IN 0.45% NACL 25,000 UNIT in 0.45% NACL 1 250ML.BAG IV SCH (07:00)
[2019-11-05 07:15] LABS: Basophils % (A) 1 %; Eosinophils # (A) 0.3 k/uL (0-0.7); Eosinophils % (A) 5 %; HCT 39.2 % (34.0-46.0); HGB 12.6 gm/dL (11.4-16.0); Lymphocytes # (A) 2.9 k/uL (1.0-4.8); Lymphocytes % (A) 45 %; MCH 32.3 pg (25.0-35.0); MCHC 32.1 g/dL (31.0-37.0); MCV 100.5 fL (80.0-100.0); Mean Platelet Volume 7.1; Monocytes # (A) 0.4 k/uL (0-1.0); Monocytes % (A) 6 %; Neutrophils # (A) 2.7 k/uL (1.3-7.7); Neutrophils % (A) 42 %; Platelet Count 318 k/uL (150-450); RDW 11.6 % (11.5-15.5); WBC 6.4 k/uL (3.8-10.6)
[2019-11-05] MEDS: ASPIRIN 325 MG TAB PO SCH (08:08)
[2019-11-05] MEDS: METOPROLOL TARTRATE 25 MG TAB PO SCH ×2 (08:08→20:19)
[2019-11-05] MEDS: PRASUGREL 10 MG TAB PO SCH (08:08)
[2019-11-05] MEDS: ATORVASTATIN 80 MG TAB PO SCH (08:08)
[2019-11-05] MEDS: TOPIRAMATE 100 MG TAB PO SCH ×2 (08:08→20:19)
[2019-11-05] MEDS ORDERED: VERAPAMIL 2.5 MG/ML 2 ML AMP ONE (10:33)
[2019-11-05] MEDS ORDERED: LIDOCAINE 1% INJ 10MG/ML (20 ML MDV) ONE (10:33)
[2019-11-05] MEDS ORDERED: HEPARIN SODIUM 1,000 UN/ML (10ML VL) ONE (10:34)
[2019-11-05] MEDS ORDERED: fentaNYL (PF) 50 MCG/ML 2 ML AMP ONE (10:34)
[2019-11-05] MEDS ORDERED: fentaNYL (PF) 50 MCG/ML 2 ML AMP IV ONE (10:50)
[2019-11-05] MEDS ORDERED: LIDOCAINE 1% INJ 10MG/ML (20 ML MDV) SQ ONE (10:56)
[2019-11-05] MEDS ORDERED: IV FLUID CONTINUATION 500 ML IV ONE (10:56)
[2019-11-05] MEDS: VERAPAMIL SYRINGE (5 MG/10 ML) INTRAARTER ONE ×2 (10:59→11:05)
[2019-11-05] MEDS ORDERED: MIDAZOLAM 2 MG/2 ML VIAL IVP ONE (11:01)
[2019-11-05] MEDS: NITROGLYCERIN 1000MCG/10ML SYRINGE INTRACORON ONE ×3 (11:02→11:25)
[2019-11-05] MEDS: HEPARIN SODIUM 1,000 UN/ML (10ML VL) IV ONE ×2 (11:04→11:15)
[2019-11-05] MEDS ORDERED: ADENOSINE 90 MG in SODIUM CHLORIDE 0.9% 60 ML IVP ONE (11:27)
[2019-11-05] MEDS ORDERED: IOPAMIDOL-370 125ML BTL INJ ONE (11:30)
[2019-11-05] MEDS ORDERED: IOPAMIDOL-370 100ML BTL INJ ONE (11:39)
[2019-11-05] MEDS ORDERED: RX INFO: IV CONTRAST WAS GIVEN 1 EACH MISC MISCELLANE PRN (11:53)
[2019-11-05] MEDS ORDERED: ATROPINE SULFATE 0.1 MG/ML 10ML SYRINGE IV PRN (11:53)
[2019-11-05] MEDS ORDERED: NITROGLYCERIN SL TABS 0.4 MG TAB SUBLINGUAL PRN (11:53)
[2019-11-05] MEDS ORDERED: MAG HYDROX/AL HYDROX/SIMETH 30 ML CUP PO PRN (11:53)
[2019-11-05] MEDS ORDERED: ZOLPIDEM 5 MG TAB PO PRN (11:53)
[2019-11-05] MEDS ORDERED: SODIUM CHLORIDE 0.9% 1,000 ML IV SCH (12:00)
--- NOTE | 2019-11-05 12:08 | CC ---
CARDIAC CATHETERIZATION REPORT Mrs. Palm is a 49-year-old female with known history of chronic tobacco use, history of coronary artery disease, who presented with an acute inferior myocardial infarction on October 26, was found to have a totally occluded right coronary artery at that time, underwent stenting of that vessel. She was discharged home and readmitted with symptoms of chest discomfort and normal cardiac enzymes. She underwent myocardial perfusion imaging that revealed evidence of inducible ischemia. In view of that, recommendation made regarding cardiac catheterization, the procedures, risks, and complication were discussed with the patient who is in full understanding and agreement. PROCEDURE: Patient was brought to photo lab specialist in the fasting semi-sedated state after receiving fentanyl and Benadryl and achieving moderate conscious sedated state. Using Xylocaine anesthesia and Seldinger technique, a 6-Swazi sheath was introduced in the right radial artery. Selective right and left coronary angiography performed using 5-Swazi 3.5 bend right and left Deven catheter, multiple views of the coronary artery including hemiaxial views obtained. Following that, angioplasty and stenting was performed. Following that, a 5-Swazi tight pigtail catheter was introduced in the left ventricle and pressures were calculated. Following that, catheter and sheath were removed. Hemostasis was obtained with deployment of TR band. There was no immediate complication. Patient is returned to her room in stable condition. Of note, the patient received a total of 4500 units of intravenous heparin as well as intra-arterial verapamil. FINDINGS: LEFT MAIN: This is a short size vessel, bifurcating into left circumflex, left anterior descending artery. Left main coronary artery has no evidence of obstructive coronary artery disease. LEFT ANTERIOR DESCENDING ARTERY: This is a large-sized vessel reaching toward the apex with a wraparound apex segment, giving rise to a proximal diagonal branch, close to the diagonal branch takeoff, there was a 60%-70%plaque proximally eccentric. The rest of the vessel has no high-grade stenosis. LEFT CIRCUMFLEX: This is a nondominant large vessel giving rise to 2 obtuse marginal branches. The left circumflex has mild intimal disease of 10% to 20% without any evidence of high-grade stenosis. RIGHT CORONARY ARTERY: This is a large dominant vessel, bifurcating distally PDA and posterolateral segment and branches. The stented segment in the proximal RCA is patent with no evidence of restenosis. There is a plaque of 40% distal to the stent with no progression compared to the last images. LEFT VENTRICULOGRAM: Left ventriculogram is not performed. HEMODYNAMICS: There was no gradient across the aortic valve. The left ventricular end- diastolic pressure was 16-20 mmHg. CONCLUSION: 1. No evidence of thrombosis at the site of the prior stenting with mild to moderate disease distal to the stent. 2. Moderate disease in the proximal LAD. 3. Mild disease in left circumflex. RECOMMENDATION: In view of finding anatomy, I recommend proceeding with fractional flow reserve measurement of the LAD and depending on that further recommendation will be made. Those findings and recommendation were discussed with the patient who is in full understanding and agreement. MMODL / IJN: [id number] /
--- NOTE | 2019-11-05 12:09 | PTCA ---
PERCUTANEOUSTRANS CORORONARY ANGIOGRAPHY Angioplasty procedure note and fractional flow reserve measurement. Mrs. Palm is a 49-year-old female with known history of hypertension, hyperlipidemia and a prior history of coronary artery disease who presented with symptoms of chest discomfort and who was found to have an abnormal myocardial perfusion imaging, underwent cardiac catheterization, was found to have a patent stent to the RCA with borderline significant lesion in the LAD. In view of that, recommendation made regarding fractional flow reserve measurement and depending on that, stenting if needed. Finding as well as recommendations were discussed with the patient who is in full understanding and agreement. PROCEDURE: A 6-Algerian FL 3.5 guiding catheter introduced into the system after cannulating the left main, a [employer] Doppler flow wire was advanced into the LAD, positioned distally. Following that, Unasyn infusion was done per protocol and her fractional flow reserve was 0.78. At that point, a 3.25 x 18 mm Xience Laura stent was advanced, deployed and post dilated at 16 atmospheres. After the last inflation, after appropriate wait, the balloon and the guidewire were withdrawn back in the guiding catheter. Images were obtained and repeated. Those images reveal stable successful stenting. At that point, the guiding catheter, the balloon and the guidewire were removed. A left ventricular end-diastolic pressure was calculated. Following that, catheter and sheath were removed. Hemostasis was obtained with deployment of a TR band. There was no immediate complication. Patient is returned to her room in stable condition. Of note, the patient had chest discomfort and EKG changes with the inflation that resulted in the procedure. She received an additional 1000 units of intravenous heparin and her ACT was measured. The sheath was removed, hemostasis was obtained with deployment of a TR band. RESULTS: Successful stenting of the proximal LAD with positive fractional flow reserve with reduction of stenosis from 60%-70% to 0%. RECOMMENDATION: 1. Patient will be continued on aspirin, Effient, beta shar, EDY inhibitors and statin. The importance of dual antiplatelet treatment was discussed with the patient and her family who are in full understanding and agreement. 2. Duration of the procedure 45 minutes. MELODY / ERIKA: [id number] /
--- NOTE | 2019-11-05 12:15 | LTR ---
DATE OF SERVICE: 11/05/2019 RE: Bryan Palm Dear Dr. Vazquez; I had the pleasure to perform cardiac catheterization and coronary angioplasty and stenting on Mrs. Palm at [facility] on November 05, 2019 and a full copy of the procedure note will be forwarded to you. In brief, she was found to have patent stent of the RCA with borderline lesion in the LAD that had a positive fractional flow reserve and underwent successful stenting of that vessel. I am hopeful that this procedure will stabilize her status and thank you again for allowing me to participate in this patient's care. Please feel free to call for any questions. Sincerely yours, Rachel Dominguez MD MMMARY / BERNICEN: [id number] /
[2019-11-05 14:15] VITALS: BMI 31.8
--- NOTE | 2019-11-05 15:28 | P.PN ---
Subjective Progress Note Date: 11/05/19 Principal diagnosis: 49-year-old female came in with compensative chest pain which started yesterday started for few hours, nonradiating is is with lightheadedness moderate amount of chest pain and tightness patient had a recent STEMI last week patient underwent cardiac ablation stenting patient although denies smoking that much appears to be smoking and that did drink a couple glasses of wine and cutting down on alcohol quite a bit she said and she is to drink on daily basis. Denied any fever chills patient denied any radiation of the chest pain. Patient pain is sharp as well. some EKG showed normal sinus rhythm minimally elevated troponin. Patient has been using nicotine patch sign to quit smoking altogether she denies any shadows but denies any history of COPD 11/04/2019 Patient is sitting up in bed and appears to be in no acute distress. Family at the bedside. Patient states that she is starving she has been nothing by mouth since midnight. She underwent a stress test today and per cardiology recommendations patient will undergo a cardiac catheterization in the morning. Currently patient denies any chest pain or palpitations. Patient states that she does have some shortness of breath and is unsure if it is anxiety related. Patient is afebrile. She denies any nausea or vomiting and has been nothing by mouth since midnight and would like to eat. 11/05/2019 Patient is scheduled to undergo cardiac catheterization this morning. No acute overnight issues. Patient states that she still has mild chest pressure and chest pain with some mild shortness of breath on exertion. Patient is nothing by mouth for her procedure today. Objective - Vital Signs Vital signs: Vital Signs Temp 98.2 F 11/05/19 12:00 Pulse 55 L 11/05/19 13:45 Resp 16 11/05/19 13:45 BP 118/72 11/05/19 13:45 Pulse Ox 98 11/05/19 13:45 Intake & Output 11/04/19 11/05/19 11/05/19 18:59 06:59 18:59 Intake Total 356.923 855.002 1715.483 Balance 356.923 363.544 4713.483 Weight 80.7 kg 79.1 kg 79.1 kg Intake: IV 816 Sodium Chloride 0.9% 1, 600 000 ml @ 75 mls/hr IV . [id number] [facility] Rx#:[id number] Intake, IV Titration 116.923 133.077 33.483 Amount Heparin Sod,Pork in 0.45% 116.923 133.077 33.483 NaCl 25,000 unit In 0.45 % NaCl 1 250ml.bag @ 12 UNITS/KG/HR 9.798 mls/hr IV .Q24H [facility] Rx#: [id number] Oral 240 240 260 Other: Voiding Method Toilet Toilet Bedpan # Voids 3 1 - Exam GENERAL: The patient is alert and oriented x3, not in any acute distress. Well developed, well nourished. HEENT: Pupils are round and equally reacting to light. EOMI. No scleral icterus. No conjunctival pallor. Normocephalic, atraumatic. No pharyngeal erythema. No thyromegaly. CARDIOVASCULAR: S1 and S2 present. No murmurs, rubs, or gallops. PULMONARY: Chest is clear to auscultation, no wheezing or crackles. ABDOMEN: Soft, nontender, nondistended, normoactive bowel sounds. No palpable organomegaly. MUSCULOSKELETAL: No joint swelling or deformity. EXTREMITIES: No cyanosis, clubbing, or pedal edema. NEUROLOGICAL: Gross neurological examination did not reveal any focal deficits. SKIN: No rashes. - Labs CBC & Chem 7: 11/05/19 06:05 11/04/19 06:10 Labs: Abnormal Lab Results - Last 24 Hours (Table) 11/04/19 11/05/19 11/05/19 Range/Units 22:07 06:05 06:06 MCV 100.5 H (80.0-100.0) fL APTT 80.5 H 51.7 H (22.0-30.0) sec Assessment and Plan Assessment: -Chest pain possibly of unstable angina, cardiology will evaluate the patient patient will be started on dual antiplatelet therapy nicotine cessation counseling was provided. patient will be started on statin and beta shar. Patient blood pressure is low because of which I will hold off on the lisinopril and she had normal ejection fraction the past. Patient underwent cardiac catheterization today with Dr. Dominguez and underwent successful stenting of the proximal LAD with positive fractional flow reserve with reduction of stenosis from 60-70% down to 0%. -Fibromyalgia -Gastroesophageal reflux disease -Hyperlipidemia -DVT prophylaxis: Currently on a heparin drip and will continue at this time as patient is undergoing cardiac catheterization in the morning Plan: Patient underwent cardiac catheterization this morning with stenting done of the proximal LAD. Cardiology is following closely. Patient will be continued on aspirin, Effient, beta blockers, lai inhibitors, and statins and will continue with dual antiplatelet therapy at this time. Will continue to monitor closely. Further recommendations to follow. Possible discharge in 24-48 hours.
[2019-11-05] MEDS: DULoxetine HCL 60 MG CAPSULE.DR PO SCH (20:19)
[2019-11-06 04:51] VITALS: RESP 18
[2019-11-06 07:14] LABS: Calcium 9.4 mg/dL (8.4-10.2)
[2019-11-06] MEDS: TOPIRAMATE 100 MG TAB PO SCH (08:46)
[2019-11-06] MEDS: ATORVASTATIN 80 MG TAB PO SCH (08:46)
[2019-11-06] MEDS: PRASUGREL 10 MG TAB PO SCH (08:46)
[2019-11-06] MEDS: METOPROLOL TARTRATE 25 MG TAB PO SCH (08:46)
[2019-11-06] MEDS: SODIUM CHLORIDE 0.9% 1,000 ML IV SCH (08:54)
[2019-11-06] MEDS ORDERED: ASPIRIN 81 MG PO SCH (09:00)
[2019-11-06] MEDS ORDERED: LISINOPRIL 2.5 MG TAB PO SCH (09:00)
--- NOTE | 2019-11-06 11:30 | PN ---
PROGRESS NOTE Mrs. Palm is a 49-year-old female who presented recently with an inferior wall myocardial infarction and underwent stenting of the right coronary artery. She presented again with symptoms of chest discomfort with no electrocardiographic changes. She had a stress test that revealed apical ischemia. She underwent a cardiac catheterization, was found to have no evidence of thrombosis in the right coronary artery stent, but she had borderline lesion in the LAD with positive fractional flow reserve. She underwent stenting of that vessel. She is doing well this morning. She denies any chest pain. Her breathing is stable. She denies any dizziness or palpitation. She is ambulating without difficulty. She continues to be on aspirin once a day, Effient 10 mg daily, Lipitor 80 mg daily, metoprolol tartrate 25 mg twice a day. PHYSICAL EXAMINATION: Blood pressure 120/70 with a heart rate in the 60s. LUNGS: Clear. HEART: Regular rate and rhythm S1, S2. No S3. No gallop. ABDOMEN: Soft and nontender. EXTREMITIES: No edema. Right radial pulse is intact. EKG revealed sinus mechanism, normal axis with evidence of inferior wall myocardial infarction. LAB DATA: Lab data revealed BUN and creatinine 13 and 0.94. Potassium 5.0. IMPRESSION: 1. Status post stenting of the left anterior descending coronary artery. 2. Status post recent myocardial infarction and stenting of the right coronary artery. 3. Prior history of smoking. 4. Hyperlipidemia. RECOMMENDATIONS: Patient should be able to be discharged home today and follow with Dr. Carpio as scheduled. I have discussed with her again the importance of smoking cessation. MMODL / IJN: [id number] /
[2019-11-06 12:05] VITALS: BP 116/58; PULSE 59; TEMP 97.2
--- NOTE | 2019-11-06 13:35 | P.DS ---
Providers Date of admission: 11/04/19 15:08 Attending physician: Rita Butler Consults: 11/03/19 01:33 Consult Physician Urgent Consulting Provider: Cardiology Zana Consult Reason/Comments: chest pain Do you want consulting provider notified?: Yes, Notify in am 11/05/19 11:53 Consult Physician Routine Consulting Provider: Huey Spann Consult Reason/Comments: Post Interventional patient Do you want consulting provider notified?: Already Contacted Primary care physician: Eber Vazquez Hospital Course: -Chest pain possibly of unstable angina, patient had cardiac cath showing patent stent in the right coronary artery with borderline lesion in the LAD and status post stenting of that lesion in LAD -Fibromyalgia -Gastroesophageal reflux disease -Hyperlipidemia Hospital course: This is a pleasant 49 years old female who was recently admitted to the hospital . Patient had recent STEMI last week and she underwent cardiac cath and stenting of the right coronary artery. However she presents this time with another chest pain and mildly elevated troponin. She has positive stress test for apical ischemia, followed subsequently by other cardiac cath by Dr. Dominguez which showed borderline lesion in the LAD with positive fractional flow reserve, she underwent stenting of that vessel. Post procedure she is doing well with no chest pain or dyspnea or other complaints. No change in urine or bowel habits. No fever. Her lisinopril stopped because of borderline low blood pressure, blood pressure on discharge is 96/61. Patient instructed about this and instructed to follow up with her PCP and dough mixer Patient was cleared for discharge by dough mixer Problems and management plan were discussed with the patient and he verbalized understanding and acceptance Patient was found stable and can be discharged home however he needs follow-up as an outpatient. Patient was instructed to follow up with PCP within one week and patient agrees. Shortly has appointment with dough mixer in 11/25 and PCP in 11/09 Gen: patient is a AAOx3, no distress CVS: S1-S2, RRR, no murmur Lungs: B/L CTA, no wheezing Abdomen: soft, no distention, no tenderness, positive bowel sounds Extremity: no leg edema or induration Time spent more than 35 minutes Patient Condition at Discharge: Stable Plan - Discharge Summary Discharge Rx Participant: Yes New Discharge Prescriptions: Continue Topiramate 100 mg PO BID clonazePAM [KlonoPIN] 2 mg PO HS DULoxetine HCL [Cymbalta] 60 mg PO HS Aspirin 81 mg PO DAILY #30 chew Prasugrel [Effient] 10 mg PO DAILY #30 tab Atorvastatin [Lipitor] 80 mg PO HS #30 tab Metoprolol Tartrate [Lopressor] 25 mg PO BID #60 tab Nitroglycerin Sl Tabs [Nitrostat] 0.4 mg SUBLINGUAL Q5M PRN #25 tab PRN Reason: Chest Pain Nicotine 14Mg/24Hr Patch [Habitrol] 1 patch TRANSDERM DAILY #28 patch Albuterol Inhaler [Ventolin Hfa Inhaler] 2 puff INHALATION RT-Q6H PRN PRN Reason: Shortness Of Breath Discontinued Lisinopril [Zestril] 2.5 mg PO DAILY #30 tab Discharge Medication List DULoxetine HCL [Cymbalta] 60 mg PO HS 10/26/19 [History] Topiramate 100 mg PO BID 10/26/19 [History] clonazePAM [KlonoPIN] 2 mg PO HS 10/26/19 [History] Aspirin 81 mg PO DAILY #30 chew 10/28/19 [Rx] Atorvastatin [Lipitor] 80 mg PO HS #30 tab 10/28/19 [Rx] Metoprolol Tartrate [Lopressor] 25 mg PO BID #60 tab 10/28/19 [Rx] Nicotine 14Mg/24Hr Patch [Habitrol] 1 patch TRANSDERM DAILY #28 patch 10/28/19 [Rx] Nitroglycerin Sl Tabs [Nitrostat] 0.4 mg SUBLINGUAL Q5M PRN #25 tab 10/28/19 [Rx] Prasugrel [Effient] 10 mg PO DAILY #30 tab 10/28/19 [Rx] Albuterol Inhaler [Ventolin Hfa Inhaler] 2 puff INHALATION RT-Q6H PRN 11/03/19 [History] Follow up Appointment(s)/Referral(s): Eber Vazquez III, MD [Primary Care Provider] - 1-2 days Katie Carpio MD [STAFF PHYSICIAN] - 2 Weeks Patient Instructions/Handouts: *Surgery [facility] - After Heart Catheterization - [facility] [employer] Instructions, Left Heart Catheterization (DC) Activity/Diet/Wound Care/Special Instructions: Activity Limited until follow-up Follow-up with primary care provider upon discharge Follow-up with cardiology as discussed and scheduled Continue current cardiac heart healthy diet Avoid any tobacco or alcohol use
== END 2019-11-06 14:28 | disposition home or self-care (01) | DRG 246 ==
LOC: EC 00:11 → 3SCARD 01:33 → OBSVTOIN 11-04 15:08
PROVIDERS: ADMIT Hospitalist; ATTEND Hospitalist
PROC: 4A033BC Measurement of Arterial Pressure, Coronary, Percutaneous Approach (ICD-10-PCS; 2019-11-05)
PROC: 027034Z Dilation of Coronary Artery, One Artery with Drug-eluting Intraluminal Device, Percutaneous Approach (ICD-10-PCS; principal; 2019-11-05 08:25)
PROC: 4A023N7 Measurement of Cardiac Sampling and Pressure, Left Heart, Percutaneous Approach (ICD-10-PCS; 2019-11-05 08:25)
PROC: B2111ZZ Fluoroscopy of Multiple Coronary Arteries using Low Osmolar Contrast (ICD-10-PCS; 2019-11-05 08:25)
DX: I25.110 Atherosclerotic heart disease of native coronary artery with unstable angina pectoris (principal); I21.19 ST elevation (STEMI) myocardial infarction involving other coronary artery of inferior wall; E78.5 Hyperlipidemia, unspecified; F17.210 Nicotine dependence, cigarettes, uncomplicated; F32.9 Major depressive disorder, single episode, unspecified; F41.9 Anxiety disorder, unspecified; J41.0 Simple chronic bronchitis; K21.9 Gastro-esophageal reflux disease without esophagitis; M79.7 Fibromyalgia; G43.909 Migraine, unspecified, not intractable, without status migrainosus; K58.9 Irritable bowel syndrome, unspecified; K57.90 Diverticulosis of intestine, part unspecified, without perforation or abscess without bleeding; Z79.02 Long term (current) use of antithrombotics/antiplatelets; Z79.82 Long term (current) use of aspirin; Z79.899 Other long term (current) drug therapy; Z90.710 Acquired absence of both cervix and uterus; Z95.5 Presence of coronary angioplasty implant and graft
CPT/HCPCS: 36415; 71046; 78452; 80048; 80053; 80061; 83735; 83880; 84484; 85025; 85347; 85379; 85610; 85730; 93005; 93017; 93458; 93571; 96361; 96374; 99285; C1874

== ENCOUNTER → 2020-01-05 | Outpatient (CLI) | payer BC ==
--- NOTE | 2020-01-05 10:01 | US ---
EXAMINATION TYPE: US abdomen complete DATE OF EXAM: 01/05/2020 COMPARISON: NONE CLINICAL HISTORY: R79.9 ABN FINDING BLOOD CHEMISTRY. EXAM MEASUREMENTS: Liver Length: 14.7 cm Gallbladder Wall: 0.2 cm CBD: 0.2 cm Spleen: 8.8 cm Right Kidney: 10.7 x 3.9 x 5.8 cm Left Kidney: 11.2 x 5.7 x 5.2 cm Pancreas: partially obscured by bowel gas, portions visualized wnl Liver: wnl Gallbladder: non shadowing, not mobile echogenic foci, probable polyp 0.4cm Evidence for sonographic Jim's sign: no CBD: wnl Spleen: wnl Right Kidney: No hydronephrosis or masses seen Left Kidney: No hydronephrosis or masses seen Upper IVC: wnl Abd Aorta: wnl The liver is homogenous. The intrahepatic portion of the IVC and proximal abdominal aorta are within normal limits. Common bile duct is unremarkable. The visualized portions of the pancreas are homo genous. The spleen is unremarkable. Kidneys are symmetric and free of hydronephrosis. No renal les ions are seen. IMPRESSION: 1. Probable gallbladder polyp.
== END | disposition home or self-care (01) ==
LOC: RADUSWWP 09:07
PROVIDERS: ATTEND Internal Medicine
DX: R53.83 Other fatigue (principal); R79.9 Abnormal finding of blood chemistry, unspecified
CPT/HCPCS: 76700

== ENCOUNTER 2020-01-11 09:44 | Observation (INO) | payer BC ==
[2020-01-11] MEDS ORDERED: SODIUM CHLORIDE 0.9% 1,000 ML IV STA (10:03)
--- NOTE | 2020-01-11 10:09 | ED ---
Abdominal Pain HPI - General Chief Complaint: Abdominal Pain Stated Complaint: gallbladder issues Time Seen by Provider: 01/11/20 09:50 Source: patient, RN/MD, RN notes reviewed Mode of arrival: ambulatory Limitations: no limitations - History of Present Illness Initial Comments: This is a 49-year-old female history of coronary artery disease who had 2 stents placed over the holiday this past year and who is on Effient for blood thinner who is been followed by her practitioner and noted have elevated liver enzymes are getting worse. He was initially believes it was secondary to Lipitor was she's been on she was stopped from using this. LFTs are still going up she now has bright colored urine was noted have elevated bilirubin as well as elevated LFTs. She denies any fevers chills nausea vomiting sweats she does have abdominal bloating. She was sent in for inpatient evaluation and treatment. I did discuss this with Dr. Quinn's nurse practitioner, Aicha. No other modifying factors she was noted apparently to have a polyp in the gallbladder. No known history of hepatitis she does still occasionally have a cigarette. She denies any recent alcohol. MD Complaint: abdominal pain, other - Related Data Home Medications Medication Instructions Recorded Confirmed DULoxetine HCL [Cymbalta] 60 mg PO HS 10/26/19 11/03/19 Topiramate 100 mg PO BID 10/26/19 11/03/19 clonazePAM [KlonoPIN] 2 mg PO HS 10/26/19 11/03/19 Albuterol Inhaler [Ventolin Hfa 2 puff INHALATION RT-Q6H PRN 11/03/19 11/03/19 Inhaler] Previous Rx's Medication Instructions Recorded Aspirin 81 mg PO DAILY #30 chew 10/28/19 Atorvastatin [Lipitor] 80 mg PO HS #30 tab 10/28/19 Metoprolol Tartrate [Lopressor] 25 mg PO BID #60 tab 10/28/19 Nicotine 14Mg/24Hr Patch [Habitrol] 1 patch TRANSDERM DAILY #28 patch 10/28/19 Nitroglycerin Sl Tabs [Nitrostat] 0.4 mg SUBLINGUAL Q5M PRN #25 tab 10/28/19 Prasugrel [Effient] 10 mg PO DAILY #30 tab 10/28/19 Allergies Allergy/AdvReac Type Severity Reaction Status Date / Time No Known Allergies Allergy Verified 01/11/20 09:51 Review of Systems ROS Statement: Those systems with pertinent positive or pertinent negative responses have been documented in the HPI. ROS Other: All systems not noted in ROS Statement are negative. Past Medical History Past Medical History: Fibromyalgia, GERD/Reflux, Hyperlipidemia, Myocardial Infarction ([place]) Additional Past Medical History / Comment(s): Pt states in the pase she accidentally injected too much submatriptan for migraine and had a reaction and was told by her physician she may have had a small [place], past GERD, cluster headaches, IBS, diverticular disease, bronchitis. Last Myocardial Infarction Date:: 10/26/19 History of Any Multi-Drug Resistant Organisms: None Reported Past Surgical History: Heart Catheterization With Stent, Hysterectomy Additional Past Surgical History / Comment(s): Colonoscopies/EGDs Past Anesthesia/Blood Transfusion Reactions: No Reported Reaction Date of Last Stent Placement:: 10/26/19 Past Psychological History: Anxiety, Depression Smoking Status: Former smoker Past Alcohol Use History: Occasional Past Drug Use History: Marijuana - Past Family History Mother Family Medical History: No Reported History Additional Family Medical History / Comment(s): Mother is healthy and is 81 yrs old. Father Family Medical History: No Reported History Additional Family Medical History / Comment(s): Father is 74 and healthy General Exam - General Exam Comments Initial Comments: This is a well-developed well-nourished awake alert oriented 3 female Limitations: no limitations General appearance: alert, in no apparent distress Head exam: Present: atraumatic, normocephalic, normal inspection Eye exam: Present: normal appearance, PERRL, EOMI. Absent: scleral icterus, conjunctival injection, periorbital swelling ENT exam: Present: normal exam, mucous membranes moist Neck exam: Present: normal inspection, full ROM, other (No stridor to 30 or bruits). Absent: tenderness, meningismus, lymphadenopathy Respiratory exam: Present: normal lung sounds bilaterally. Absent: respiratory distress, wheezes, rales, rhonchi, stridor Cardiovascular Exam: Present: regular rate, normal rhythm, normal heart sounds. Absent: systolic murmur, diastolic murmur, rubs, gallop, clicks GI/Abdominal exam: Present: soft, tenderness (Mild right upper quadrant tenderness palpation no guarding rebound masses or bruits), normal bowel sounds. Absent: distended, guarding, rebound, rigid Rectal exam: Present: deferred Extremities exam: Present: normal inspection, full ROM, normal capillary refill. Absent: pedal edema, joint swelling, calf tenderness Back exam: Present: normal inspection Neurological exam: Present: alert, oriented X3, CN II-XII intact Psychiatric exam: Present: normal affect, normal mood Skin exam: Present: warm, dry, intact, normal color. Absent: rash Course Vital Signs 01/11/20 01/11/20 09:46 09:51 Temperature 97.8 F Pulse Rate 74 Respiratory 18 18 Rate Blood Pressure 138/83 O2 Sat by Pulse 98 Oximetry Medical Decision Making - Medical Decision Making Patient will be admitted I did discuss case with Dr. Colmenares. GI will be consulted. - Lab Data Result diagrams: 01/11/20 10:15 Lab Results 01/11/20 01/11/20 01/11/20 Range/Units 10:15 10:15 10:15 WBC 7.7 (3.8-10.6) k/uL RBC 4.33 (3.80-5.40) m/uL Hgb 13.9 (11.4-16.0) gm/dL Hct 43.2 (34.0-46.0) % MCV 99.9 (80.0-100.0) fL MCH 32.2 (25.0-35.0) pg MCHC 32.2 (31.0-37.0) g/dL RDW 12.0 (11.5-15.5) % Plt Count 333 (150-450) k/uL Neutrophils % 41 % Lymphocytes % 42 % Monocytes % 5 % Eosinophils % 7 % Basophils % 1 % Neutrophils # 3.2 (1.3-7.7) k/uL Lymphocytes # 3.2 (1.0-4.8) k/uL Monocytes # 0.4 (0-1.0) k/uL Eosinophils # 0.5 (0-0.7) k/uL Basophils # 0.1 (0-0.2) k/uL PT 9.5 (9.0-12.0) sec INR 0.9 (<1.2) APTT 24.2 (22.0-30.0) sec Urine Color Yellow Urine Appearance Cloudy H (Clear) Urine pH 6.5 (5.0-8.0) Ur Specific [place] 1.027 (1.001-1.035) Urine Protein Trace H (Negative) Urine Glucose (UA) Negative (Negative) Urine Ketones Negative (Negative) Urine Blood Negative (Negative) Urine Nitrite Negative (Negative) Urine Bilirubin Negative (Negative) Urine Urobilinogen 3.0 (<2.0) mg/dL Ur Leukocyte Esterase Moderate H (Negative) Urine RBC 4 (0-5) /hpf Urine WBC 3 (0-5) /hpf Ur Squamous Epith Cells 11 H (0-4) /hpf Urine Mucus Few H (None) /hpf - Radiology Data Radiology results: report reviewed, image reviewed Disposition Clinical Impression: Jaundice, Abdominal pain Disposition: ADMITTED IP TO THIS HOSP Condition: Fair Referrals: Az Quinn MD [Primary Care Provider] - 1-2 days
[2020-01-11 10:29] LABS: Basophils # (A) 0.1 k/uL (0-0.2); Basophils % (A) 1 %; Eosinophils # (A) 0.5 k/uL (0-0.7); Eosinophils % (A) 7 %; HCT 43.2 % (34.0-46.0); HGB 13.9 gm/dL (11.4-16.0); Lymphocytes # (A) 3.2 k/uL (1.0-4.8); Lymphocytes % (A) 42 %; MCH 32.2 pg (25.0-35.0); MCHC 32.2 g/dL (31.0-37.0); MCV 99.9 fL (80.0-100.0); Mean Platelet Volume 6.9; Monocytes # (A) 0.4 k/uL (0-1.0); Monocytes % (A) 5 %; Neutrophils # (A) 3.2 k/uL (1.3-7.7); Neutrophils % (A) 41 %; Platelet Count 333 k/uL (150-450); RBC 4.33 m/uL (3.80-5.40); WBC 7.7 k/uL (3.8-10.6)
[2020-01-11 10:36] LABS: Appearance,Urine Cloudy (Clear); Bilirubin,Urine Negative (Negative); Blood,Urine Negative (Negative); Color,Urine Yellow; Glucose,Urine (UA) Negative (Negative); Ketones,Urine Negative (Negative); Leukocyte Esterase,Urine Moderate (Negative); Mucus,Urine Few /hpf; Nitrite,Urine Negative (Negative); PH, Urine 6.5 (5.0-8.0); Protein,Urine Trace (Negative); RBC,Urine 4 /hpf (0-5); Specific Gravity,Urine 1.027 (1.001-1.035); Squamous Epithelial Cell,Urine 11 /hpf (0-4); WBC,Urine 3 /hpf (0-5)
[2020-01-11 10:38] LABS: INR 0.9 (<1.2); Partial Thromboplastin Time 24.2 sec (22.0-30.0); Prothrombin Time 9.5 sec (9.0-12.0)
--- NOTE | 2020-01-11 10:38 | XR ---
EXAMINATION TYPE: XR KUB DATE OF EXAM: 01/11/2020 COMPARISON: 11/14/2016 HISTORY: Abdomen pain right upper quadrant TECHNIQUE: Upright view abdomen FINDINGS: Normal colonic bowel gas is present. No mass effect is evident. Psoas margins are normal. O rganomegaly is not evident. No suspicious calcifications. IMPRESSION: 1. Normal abdomen
[2020-01-11 10:40] LABS: Albumin 4.3 g/dL (3.5-5.0); Calcium 9.1 mg/dL (8.4-10.2); Magnesium 2.3 mg/dL (1.6-2.3); Potassium 4.6 mmol/L (3.5-5.1); Total Bilirubin 0.5 mg/dL (0.2-1.3); Total Protein 7.3 g/dL (6.3-8.2)
[2020-01-11] MEDS ORDERED: NALOXONE 0.4 MG/ML 1 ML VIAL IV PRN (11:01)
[2020-01-11 11:15] LABS: Hepatitis A Antibody IgM NEGATIVE
[2020-01-11] MEDS: SODIUM CHLORIDE 0.9% 1,000 ML IV SCH ×2 (13:02→19:04)
[2020-01-11] MEDS ORDERED: LORazepam 2 MG/ML INJ IV PRN ×3 (16:44)
[2020-01-11 17:34] LABS: Hepatitis B Core IgM Non-Reactive (Non-Reactive); Hepatitis B Surface Antigen Non-Reactive (Non-Reactive); Hepatitis C IgG Antibody Non-Reactive (Non-Reactive)
[2020-01-11] MEDS: ONDANSETRON 4 MG/2 ML VIAL IVP SCH ×2 (17:48→23:41)
[2020-01-11] MEDS: THIAMINE 100 MG TAB PO SCH (17:49)
--- NOTE | 2020-01-11 18:14 | MR ---
EXAMINATION TYPE: MR abdomen wo/w con DATE OF EXAM: 01/11/2020 COMPARISON: None HISTORY: abdominal pain, difficulty breathing deeply, nausea CONTRAST: Standard multiplanar, multisequence MRI departmental protocol utilizing 7.5 mL intravenous Gadavist g adolinium contrast. Liver has normal size and contour. There is no focal defect. Bile ducts are not dilated. Gallbladder appears normal. Spleen has normal size and contour. There is no evidence of pancreatic mass. Pancreat ic duct appears normal. Stomach appears normal. There is no evidence of adrenal mass. Kidneys have normal size and contour. There is no hydronephrosi s. There is no sign of ascites. There is no sign of pleural effusion. Heart size is normal. There is no sign of retroperitoneal adenopathy. The contrast images show no pathologic enhancement. There is n o evidence of renal mass. I see no bony destructive process. IMPRESSION: Negative MR scan of the abdomen. I do not see a cause for patient's symptoms.
[2020-01-11] MEDS ORDERED: ALBUTEROL NEBULIZED 2.5 MG/3 ML INHALATION PRN (18:33)
--- NOTE | 2020-01-11 18:48 | P.HPIM ---
History of Present Illness H&P Date: 01/11/20 Chief Complaint: abdominal pain Patient is a 49-year-old female past medical history of myocardial infarction requiring stent in October 2019 fibromyalgia, GERD, and dyslipidemia who presented to the emergency department at the direction of her primary care physician for elevated liver enzymes. The ER she underwent an extensive evaluation. Her laboratory analysis showed an AST of 33, ALT is 766, alkaline phosphatase of 546. Urinalysis was unremarkable. Her initial vital signs within normal limits. She is admitted for further evaluation of her liver failu re. Patient seen and examined at bedside she complains of increased fatigue since her myocardial infarction in October 2019. Over the last week she noted some abdominal pain. She went in and saw Aicha romo for fatigue. She was found to have elevated liver ezymes and gallbladder polyp. Taken off lipitor on 01/05/20. Over the last week she notes the following symptoms: Pain in RUQ that comes and goes, it is worse with pressure and better when she is not pressing on it feels as though she cannot take a deep breath, but no overt change in shortness of breath. Decreased amount of stool, reports that stool is small and hard no change in color. Loss of appetite and is unable to eat much + Nausea Urine is dark and cloudy, + malodorous, decreased about of urine No significant weight loss No swelling + chills + drinks 3 drinks to 1 bottle of wine 3 times weekly. + night sweats for years + SOB with exertion since October heart attack. Review of Systems Pertinent positives and negatives as discussed in HPI, a complete review of systems was performed and all other systems are negative. Past Medical History Past Medical History: Coronary Artery Disease (CAD), Fibromyalgia, GERD/Reflux, Hyperlipidemia, Myocardial Infarction ([place]) Additional Past Medical History / Comment(s): 10/26/19 [place], pt states in the past she accidentally injected too much submatriptan for migraine and had a reaction and was told by her physician she may have had a small [place], past GERD, recently diagnosed with gallbladder polyp, cluster headaches, IBS, diverticular disease, bronchitis, past R patella and r hand fracture. Last Myocardial Infarction Date:: 10/26/19 History of Any Multi-Drug Resistant Organisms: None Reported Past Surgical History: Section, Heart Catheterization With Stent, Hysterectomy Additional Past Surgical History / Comment(s): Colonoscopies/EGDs Past Anesthesia/Blood Transfusion Reactions: No Reported Reaction Date of Last Stent Placement:: 10/26/19 Smoking Status: Former smoker Past Alcohol Use History: Heavy Additional Past Alcohol Use History / Comment(s): 3 glass to bottle of wine 3 times weekly Past Drug Use History: Marijuana Additional History: Sell make-up - Past Family History Mother Family Medical History: No Reported History Additional Family Medical History / Comment(s): Mother is healthy and is 81 yrs old. Father Family Medical History: No Reported History Additional Family Medical History / Comment(s): Father is 75 and healthy Medications and Allergies Home Medications Medication Instructions Recorded Confirmed Type DULoxetine HCL [Cymbalta] 120 mg PO HS 10/26/19 01/11/20 History Topiramate 100 mg PO BID 10/26/19 01/11/20 History clonazePAM [KlonoPIN] 2 mg PO HS 10/26/19 01/11/20 History Aspirin 81 mg PO DAILY #30 chew 10/28/19 01/11/20 Rx Metoprolol Tartrate [Lopressor] 25 mg PO BID #60 tab 10/28/19 01/11/20 Rx Nitroglycerin Sl Tabs [Nitrostat] 0.4 mg SUBLINGUAL Q5M PRN #25 tab 10/28/19 01/11/20 Rx Prasugrel [Effient] 10 mg PO DAILY #30 tab 10/28/19 01/11/20 Rx Albuterol Inhaler [Ventolin Hfa 2 puff INHALATION RT-Q6H PRN 11/03/19 01/11/20 History Inhaler] Ergocalciferol [Vitamin D2] 50,000 unit PO Q7D 01/11/20 01/11/20 History Allergies Allergy/AdvReac Type Severity Reaction Status Date / Time atorvastatin [From Lipitor] AdvReac Unknown Verified 01/11/20 11:29 Physical Exam Osteopathic Statement: *. No significant issues noted on an osteopathic structural exam other than those noted in the History and Physical/Consult. Vitals: Vital Signs Temp Pulse Pulse Resp BP BP Pulse Ox 01/11/20 12:18 97.3 F L 62 20 124/81 97 01/11/20 11:52 57 L 20 105/76 99 01/11/20 09:51 18 01/11/20 09:46 97.8 F 74 18 138/83 98 Intake and Output 01/11/20 01/11/20 01/11/20 06:59 14:59 22:59 Other: Voiding Method Toilet # Voids 2 Weight 77.564 kg General: non toxic, no distress, appears at stated age, normal weight Derm: no unusual rashes/lesions no unusual ecchymoses, warm, dry Head: atraumatic, normocephalic, symmetric Eyes: EOMI, no lid lag, anicteric sclera, pupils equal round reactive to light ENT: Nose and ears atraumatic, no thrush, no pharyngeal erythema Neck: No thyromegaly, no cervical lymphadenopathy, trachea midline, supple Mouth: no lip lesion, mucus membranes moist Cardiovascular: S1S2 reg, no murmur, positive posterior tibial pulse bilateral, no edema, capillary refill less than 2 seconds Lungs: CTA bilateral, no rhonchi, no rales , no accessory muscle use Abdominal: soft, + tender to palpation RUQ, no guarding, no appreciable organomegaly, normal bowel sounds Ext: no gross muscle atrophy, muscle strength 5 out of 5 in all 4 extremities grossly, no contractures, Neuro: CN II-XI grossly intact, light touch intact all 4 extremities, finger to nose within normal limits, Psych: Alert, oriented, appropriate affect Results CBC & Chem 7: 01/11/20 10:15 01/11/20 10:15 Labs: Abnormal Lab Results - Last 24 Hours (Table) 01/11/20 01/11/20 Range/Units 10:15 10:15 BUN 18 H (7-17) mg/dL Glucose 102 H (74-99) mg/dL AST 336 H (14-36) U/L ALT 766 H (4-34) U/L Alkaline Phosphatase 548 H (38-126) U/L Urine Appearance Cloudy H (Clear) Urine Protein Trace H (Negative) Ur Leukocyte Esterase Moderate H (Negative) Ur Squamous Epith Cells 11 H (0-4) /hpf Urine Mucus Few H (None) /hpf Abdominal x-ray: report reviewed MRI - abdomen: report reviewed Thrombosis Risk Factor Assmnt - DVT/VTE Prophylaxis DVT/VTE Prophylaxis: Pharmacologic Prophylaxis ordered - Choose All That Apply Any of the Below Risk Factors Present?: Yes Each Factor Represents 1 point: Obesity (BMI >25) Other Risk Factors: No Other congenital or acquired thrombophilia - If yes, enter type in comment: No Thrombosis Risk Factor Assessment Total Risk Factor Score: 1 Thrombosis Risk Factor Assessment Level: Low Risk Assessment and Plan Assessment: Acute hepatitis -Viral hepatitis profile negative -MRI without significant change and pancreatic echotexture or dilated ducts -Alpha-1 antitrypsin, also fetoprotein, BIRGIT, antimitochondrial antibody, through a pro-is a, CMV, EBV, ferritin, herpes, iron, liver/kidney microsomal antibody, smooth muscle antibody all pending -GI recommendations appreciated -Repeat liver function a.m. -Avoid hepatotoxic agents - Stop Topamax patient has been on this for 5 years -AST the ALT ratio is abnormal for alcoholic hepatitis Atherosclerotic coronary artery disease -Secondary to recent myocardial infarction will continue aspirin and effient -Statin on hold secondary to liver dysfunction Alcohol misuse with impending delirium tremens -Thiamine, folic acid, CIWA protocol GERD -PPI The patient is admitted with an anticipated greater than 2 midnight stay for evaluation of acute hepatitis. Surrogate decision-maker: CODE STATUS: Full DVT prophylaxis: SCDs Discussed with:Patient, Nursing Anticipated discharge date: 2-[address]: home A total of 35 minutes was spent on the care of this complex patient more than 50% of the time was spent in counseling and care coordination.
[2020-01-11] MEDS: POLYETHYLENE GLYCOL 3350 17 GM POWD.PACK PO SCH (20:28)
[2020-01-11] MEDS: PANTOPRAZOLE 40 MG/10 ML VIAL IVP SCH (20:28)
[2020-01-11] MEDS: METOPROLOL TARTRATE 25 MG TAB PO SCH (20:28)
[2020-01-11] MEDS ORDERED: DULoxetine HCL 60 MG CAPSULE.DR PO SCH (21:00)
[2020-01-11] MEDS ORDERED: clonazePAM 1 MG TAB PO SCH (21:00)
--- NOTE | 2020-01-11 22:13 | P.CONS ---
History of Present Illness - Reason for Consult Consult date: 01/11/20 Elevated liver enzymes Requesting physician: Jessenia Shaw - Chief Complaint Abnormal lab evaluation - History of Present Illness 49-year-old female with a medical history significant for myocardial infarction with stenting in 10/2019, fibromyalgia, GERD, dyslipidemia, diverticulosis, GERD, IBS who presented to the hospital due to abnormal liver enzymes seen in the outpatient setting. Patient was seen in the outpatient setting with complaints of fatigue and persistent since her CO in October. At that time the patient underwent laboratory investigation which was significant for elevated liver enzymes and an ultrasound of the abdomen which showed a gallbladder polyp. She was on Lipitor at that time which was discontinued. Currently she is reporting fatigue and nausea without any vomiting. She is having right upper quadrant pain which is not consistent which she describes as tenderness in the right upper quadrant over abdomen. She reports associated bloating. She denies any history of elevated liver enzymes in the past or family history of liver dis ease. She does drink alcohol which she describes as a half a bottle every few days to a bottle a day and states that this will occur approximately 3 times per week. She reports binge drinking in her younger years but denies any current binge drinking. She denies any exposures, or recent antibiotic therapy. Laboratory evaluation on presentation was significant for a WBC 7.7, hemoglobin 13.9, platelet count 3 33,000, total bilirubin 0.5, alkaline phosphatase 546, AST 336 and ALTs 766. Amylase was found to be 58 with a lipase of 151 and the INR of 0.9. Patient previously underwent EGD and colonoscopy in 2016 with findings of a hiatal hernia, esophagitis and diverticulosis. Review of Systems REVIEW OF SYSTEMS: CONSTITUTIONAL: Denies any fevers, chills, weight change but has noted fatigue since her myocardial infarction. CARDIOVASCULAR: Denies any chest pain, palpitations high or low blood pressures RESPIRATORY: Denies any shortness of breath, hemoptysis or cough. GENITOURINARY: No dysuria or hematuria, but does report malodorous urine. MUSCULOSKELETAL: No weakness reported. SKIN: Denies any new rashes or lesions, jaundice or pallor. PSYCHIATRIC: Denies any depression or anxiety. NEUROLOGY: Denies headache, denies any new focal deficits. EARS/NOSE/THROAT: No recent hearing change, congestion, nasal discharge or sore throat. EYES: No pain in eyes, discharge or change in vision. GASTROINTESTINAL: As per HPI. Past Medical History Past Medical History: Coronary Artery Disease (CAD), Fibromyalgia, GERD/Reflux, Hyperlipidemia, Myocardial Infarction ([place]) Additional Past Medical History / Comment(s): 10/26/19 [place], pt states in the past she accidentally injected too much submatriptan for migraine and had a reaction and was told by her physician she may have had a small [place], past GERD, recently diagnosed with gallbladder polyp, cluster headaches, IBS, diverticular disease, bronchitis, past R patella and r hand fracture. Last Myocardial Infarction Date:: 10/26/19 History of Any Multi-Drug Resistant Organisms: None Reported Past Surgical History: Section, Heart Catheterization With Stent, Hysterectomy Additional Past Surgical History / Comment(s): Colonoscopies/EGDs Past Anesthesia/Blood Transfusion Reactions: No Reported Reaction Date of Last Stent Placement:: 10/26/19 Smoking Status: Former smoker - Past Family History Mother Family Medical History: No Reported History Additional Family Medical History / Comment(s): Mother is healthy and is 81 yrs old. Father Family Medical History: No Reported History Additional Family Medical History / Comment(s): Father is 74 and healthy Medications and Allergies Home Medications Medication Instructions Recorded Confirmed Type DULoxetine HCL [Cymbalta] 120 mg PO HS 10/26/19 01/11/20 History Topiramate 100 mg PO BID 10/26/19 01/11/20 History clonazePAM [KlonoPIN] 2 mg PO HS 10/26/19 01/11/20 History Aspirin 81 mg PO DAILY #30 chew 10/28/19 01/11/20 Rx Metoprolol Tartrate [Lopressor] 25 mg PO BID #60 tab 10/28/19 01/11/20 Rx Nitroglycerin Sl Tabs [Nitrostat] 0.4 mg SUBLINGUAL Q5M PRN #25 tab 10/28/1901/27 Rx Prasugrel [Effient] 10 mg PO DAILY #30 tab 10/28/19 01/11/20 Rx Albuterol Inhaler [Ventolin Hfa 2 puff INHALATION RT-Q6H PRN 11/03/19 01/11/20 History Inhaler] Ergocalciferol [Vitamin D2] 50,000 unit PO Q7D 01/11/20 01/11/20 History Allergies Allergy/AdvReac Type Severity Reaction Status Date / Time atorvastatin [From Lipitor] AdvReac Unknown Verified 01/11/20 11:29 Physical Exam Vitals: Vital Signs Temp Pulse Pulse Resp BP BP Pulse Ox 01/11/20 12:18 97.3 F L 62 20 124/81 97 01/11/20 11:52 57 L 20 105/76 99 01/11/20 09:51 18 01/11/20 09:46 97.8 F 74 18 138/83 98 Intake and Output 01/10/20 01/11/20 01/11/20 22:59 06:59 14:59 Other: Weight 77.564 kg On physical examination, patient appears comfortable in no apparent distress. HEAD: Normocephalic, atraumatic. EYES: No scleral icterus. No conjunctival injection. MOUTH: No lesions, tongue midline. NECK: Trachea midline, no gross abnormalities. CHEST: Clear to auscultation with no wheezing or rhonchi appreciated. HEART: Regular rate and rhythm. ABDOMEN: Soft, thin and nontender. Bowel sounds are positive. No organomegaly. No guarding or rigidity. EXTREMITIES: No pedal edema. SKIN: No rashes, no jaundice. NEUROLOGIC: Alert and oriented x3. No focal deficits. Results CBC & Chem 7: 01/11/20 10:15 01/11/20 10:15 Labs: Abnormal Lab Results - Last 24 Hours (Table) 01/11/20 01/11/20 Range/Units 10:15 10:15 BUN 18 H (7-17) mg/dL Glucose 102 H (74-99) mg/dL AST 336 H (14-36) U/L ALT 766 H (4-34) U/L Alkaline Phosphatase 548 H (38-126) U/L Urine Appearance Cloudy H (Clear) Urine Protein Trace H (Negative) Ur Leukocyte Esterase Moderate H (Negative) Ur Squamous Epith Cells 11 H (0-4) /hpf Urine Mucus Few H (None) /hpf MRI - abdomen: report reviewed (MRI abdomen essentially normal with no findings of hepatobiliary or pancreatic abnormalities.) Assessment and Plan (1) Elevated liver enzymes Narrative/Plan: 49-year-old female with multiple medical comorbidities who presented to the hospital due to abnormal elevation of liver enzymes. Elevation is predominantly in a hepatocellular pattern with total bilirubin 0.5, alkaline phosphatase 546, AST 336 and ALP 766. No prior history of elevation of liver enzymes or family history of elevated liver enzymes. Denies any exposures. Patient had statin therapy to sick continued in the outpatient setting due to elevated liver enzymes. Ultrasound of the abdomen and outpatient setting was significant only for a gallbladder polyp. MRI of the abdomen has been performed and was negative for any hepatobiliary or pancreatic pathology. She denies any recent antibiotic therapy. Unknown etiology, may be related to viral hepatitis, drug-induced liver injury, or other etiology. Current Visit: Yes Status: Acute Code(s): R74.8 - ABNORMAL LEVELS OF OTHER SERUM ENZYMES SNOMED Code(s): 883343111 (2) Abdominal pain Current Visit: Yes Status: Acute Code(s): R10.9 - UNSPECIFIED ABDOMINAL PAIN SNOMED Code(s): 50069603 Plan: Supportive care Okay for diet Continue to monitor CBC, CMP Full liver serologies including extensive viral studies ordered MRI abdomen with and without contrast ordered with no evidence of hepatic, hepatobiliary, or pancreatic pathology noted Continue to avoid hepatotoxic medications Thank you for allowing us to participate in the care of the patient we will continue to follow
[2020-01-12] MEDS: SODIUM CHLORIDE 0.9% 1,000 ML IV SCH ×2 (02:20→12:25)
[2020-01-12] MEDS: ONDANSETRON 4 MG/2 ML VIAL IVP SCH ×2 (05:25→12:25)
[2020-01-12 06:19] VITALS: BP 117/82; PULSE 64; RESP 16; TEMP 98
[2020-01-12] MEDS: POLYETHYLENE GLYCOL 3350 17 GM POWD.PACK PO SCH (08:38)
[2020-01-12] MEDS: METOPROLOL TARTRATE 25 MG TAB PO SCH (08:38)
[2020-01-12] MEDS: PANTOPRAZOLE 40 MG/10 ML VIAL IVP SCH (08:38)
[2020-01-12] MEDS: THIAMINE 100 MG TAB PO SCH (08:39)
[2020-01-12] MEDS ORDERED: ASPIRIN 81 MG PO SCH (09:00)
[2020-01-12] MEDS ORDERED: PRASUGREL 10 MG TAB PO SCH (09:00)
[2020-01-12 09:03] LABS: Albumin 3.3 g/dL (3.5-5.0); Calcium 8.5 mg/dL (8.4-10.2); Potassium 4.6 mmol/L (3.5-5.1); Total Bilirubin 0.4 mg/dL (0.2-1.3)
[2020-01-12 10:58] VITALS: BMI 31.2
--- NOTE | 2020-01-12 11:53 | P.DS ---
Providers Date of admission: 01/11/20 11:01 Expected date of discharge: 01/12/20 Attending physician: Jessenia Shaw DO Primary care physician: Az Quinn Hospital Course: Discharge Diagnosis: Transaminitis, acute hepatitis Alcohol misuse CAD GERD Statin use Gallbladder ultrasound Hospital Course: Patient is a 49-year-old female with a past medical history of myocardial infarction requiring stent in October 2019, fibromyalgia, GERD, and dyslipidemia who presented to the emergency department at the direction of her primary care provider for elevated liver enzymes. The ER she underwent an extensive evaluation. Her laboratory analysis showed an AST of 336, ALT is 766, and alkaline phosphatase of 546 with a total bilirubibn less than 0.1. Urinal ysis was unremarkable. Her initial vital signs were within normal limits. She was admitted for further evaluation of her liver failure. Patient complains of increased fatigue since her myocardial infarction in October 2019. Over the last week she noted some abdominal pain. She went in and saw Aicha Rushing for fatigue. She was found to have elevated liver ezymes and gallbladder polyp. Taken off lipitor on 01/05/20. Her liver enzymes improved, her liver MRI was normal. Her enzymes improved. The remainder of her test were pending. She was determined stable for discharge home and will need to follow-up in the office with LEISA and Aicha. She will have repeat CMP in 3-5 days. She will stay off lipitor and try to minimize alcohol use. Patient seen and examined at bedside. Abdominal pain is decreasing, no chest pain, no nausea, no vomiting Vital signs reviewed and stable. General: non toxic, no distress, appears at stated age Derm: warm, dry Head: atraumatic, normocephalic, symmetric Eyes: EOMI, no lid lag, anicteric sclera Mouth: no lip lesion, mucus membranes moist Cardiovascular: S1S2 reg, no murmur, positive posterior tibial pulse bilateral, Lungs: CTA bilateral, no rhonchi, no rales , no accessory muscle use Abdominal: soft, + tender to palpation RUQ, no guarding, no appreciable organomegaly Ext: no gross muscle atrophy, no edema, no contractures Neuro: CN II-XI grossly intact, no focal neuro deficits Psych: Alert, oriented, appropriate affect A total of 25 minutes of time were spent preparing this complex discharge summary . Patient Condition at Discharge: Stable Plan - Discharge Summary Discharge Rx Participant: No New Discharge Prescriptions: Continue Topiramate 100 mg PO BID clonazePAM [KlonoPIN] 2 mg PO HS DULoxetine HCL [Cymbalta] 120 mg PO HS Aspirin 81 mg PO DAILY #30 chew Prasugrel [Effient] 10 mg PO DAILY #30 tab Metoprolol Tartrate [Lopressor] 25 mg PO BID #60 tab Nitroglycerin Sl Tabs [Nitrostat] 0.4 mg SUBLINGUAL Q5M PRN #25 tab PRN Reason: Chest Pain Albuterol Inhaler [Ventolin Hfa Inhaler] 2 puff INHALATION RT-Q6H PRN PRN Reason: Shortness Of Breath Ergocalciferol [Vitamin D2 (DRISDOL)] 50,000 unit PO Q7D Discharge Medication List DULoxetine HCL [Cymbalta] 120 mg PO HS 10/26/19 [History] Topiramate 100 mg PO BID 10/26/19 [History] clonazePAM [KlonoPIN] 2 mg PO HS 10/26/19 [History] Aspirin 81 mg PO DAILY #30 chew 10/28/19 [Rx] Metoprolol Tartrate [Lopressor] 25 mg PO BID #60 tab 10/28/19 [Rx] Nitroglycerin Sl Tabs [Nitrostat] 0.4 mg SUBLINGUAL Q5M PRN #25 tab 10/28/19 [Rx] Prasugrel [Effient] 10 mg PO DAILY #30 tab 10/28/19 [Rx] Albuterol Inhaler [Ventolin Hfa Inhaler] 2 puff INHALATION RT-Q6H PRN 11/03/19 [History] Ergocalciferol [Vitamin D2 (DRISDOL)] 50,000 unit PO Q7D 01/11/20 [History] Follow up Appointment(s)/Referral(s): Az Quinn MD [Primary Care Provider] - 1-2 days Michelle Dawkins NPC [Nurse Practitioner] - 1 Week (hospital F\U for elevated LFTS) Ambulatory/Diagnostic Orders: Comprehensive Metabolic Panel [LAB.AMB] Time Frame: 5 Days, Location: None Selected Activity/Diet/Wound Care/Special Instructions: Activity: as tolerated Diet: regular Special Instructions: Repeat labs on Friday or Friday Abstain from alcohol Discharge Disposition: HOME SELF-CARE
[2020-01-12 17:05] LABS: Alpha Fetoprotein, Tumor Mkr 3.2 ng/mL (0.0-7.9)
[2020-01-12 18:05] LABS: % Iron Saturation 34.98 (12.00-45.00)
[2020-01-12 18:14] LABS: Ferritin 340.3 ng/mL (10.0-291.0)
[2020-01-13 13:51] LABS: Liver/Kidney Microsome Antibod 1.3 UNITS (<=20)
== END 2020-01-12 14:18 | disposition home or self-care (01) ==
LOC: EC 09:44 → 6NMEDSUR 11:01
PROVIDERS: ADMIT Internal Medicine; ATTEND Internal Medicine
DX: B17.9 Acute viral hepatitis, unspecified (principal); I25.10 Atherosclerotic heart disease of native coronary artery without angina pectoris; K21.9 Gastro-esophageal reflux disease without esophagitis; K44.9 Diaphragmatic hernia without obstruction or gangrene; F10.239 Alcohol dependence with withdrawal, unspecified; E78.5 Hyperlipidemia, unspecified; M79.7 Fibromyalgia; K82.4 Cholesterolosis of gallbladder; K58.9 Irritable bowel syndrome, unspecified; K57.90 Diverticulosis of intestine, part unspecified, without perforation or abscess without bleeding; F41.9 Anxiety disorder, unspecified; F32.9 Major depressive disorder, single episode, unspecified; I25.2 Old myocardial infarction; F17.210 Nicotine dependence, cigarettes, uncomplicated; Z95.5 Presence of coronary angioplasty implant and graft; Z90.710 Acquired absence of both cervix and uterus; Z79.82 Long term (current) use of aspirin; Z79.02 Long term (current) use of antithrombotics/antiplatelets; Z79.899 Other long term (current) drug therapy
CPT/HCPCS: 96376 ×2; 96361 ×3; 96374; 96375; 99285; 36415; 86376; 86665; 80053 ×2; 80074; 86694; 82728; 82150; 82550; 83540; 83550; 83690; 83735; 85025; 85610; 85730; 81001; 83516 ×2; 82103; 82105; 86645; 82390; 86038; 74018; 74183; G0378 ×2; J2405 ×2; C9113 ×2; A9585

== ENCOUNTER 2020-02-26 23:05 | Observation (INO) | payer BC ==
[2020-02-26] MEDS ORDERED: SODIUM CHLORIDE 0.9% 1,000 ML IV STA (23:26)
--- NOTE | 2020-02-26 23:54 | XR ---
EXAMINATION TYPE: XR chest 2V DATE OF EXAM: 02/26/2020 COMPARISON: 11/03/2019 HISTORY: Chest pain TECHNIQUE: FINDINGS: Heart is normal. There are no hilar masses. Mediastinum is normal. There is poor inspiratio n. There is coarse interstitial density in the lower lobes. Bony thorax is intact. There is no heart failure. IMPRESSION: Interstitial lower lobe pulmonary infiltrates similar to old exam. No heart failure seen. Suboptimal inspiration.
[2020-02-27] MEDS ORDERED: LORazepam 2 MG/ML INJ IV STA (00:03)
[2020-02-27] MEDS ORDERED: ONDANSETRON 4 MG/2 ML VIAL IVP STA (00:03)
[2020-02-27] MEDS ORDERED: KETOROLAC 30 MG/ML 1 ML VIAL IVP STA (00:03)
--- NOTE | 2020-02-27 00:05 | ED ---
Chest Pain HPI - General Chief Complaint: Chest Pain Stated Complaint: Chest Pain Time Seen by Provider: 02/26/20 23:23 Source: patient, EMS, RN notes reviewed, old records reviewed Mode of arrival: EMS Limitations: no limitations, altered mental status (Intoxication) - History of Present Illness Initial Comments: This is a 49-year-old female to the ER for evaluation patient does have history of alcohol abuse and history of heart disease with stents coming in for chest pain today. Left-sided chest pain chest pain radiating to her neck. No travel history or sick contacts no shortness of breath patient does admit to some anxiety with nausea over symptoms. Symptoms started today or progressively worsening. Patient with severe anxiety, and asthma to drinking alcohol to MD Complaint: chest pain -: days(s) Onset: during rest, during exertion Pain Location: substernal, left chest Pain Radiation: LUE Severity: moderate Severity scale (1-10): 4 Quality: tightness, aching Consistency: constant Improves With: nothing Worsens With: nothing Context: recent illness Anginal Symptoms: nausea, vomiting Treatments Prior to Arrival: none - Related Data Home Medications Medication Instructions Recorded Confirmed DULoxetine HCL [Cymbalta] 120 mg PO HS 10/26/19 01/11/20 Topiramate 100 mg PO BID 10/26/19 01/11/20 clonazePAM [KlonoPIN] 2 mg PO HS 10/26/19 01/11/20 Albuterol Inhaler (Bulk) [Ventolin 2 puff INHALATION RT-Q6H PRN 11/03/19 01/11/20 Hfa Inhaler (Bulk)] Ergocalciferol [Vitamin D2 50,000 unit PO Q7D 01/11/20 01/11/20 (DRISDOL)] Previous Rx's Medication Instructions Recorded Aspirin 81 mg PO DAILY #30 chew 10/28/19 Metoprolol Tartrate [Lopressor] 25 mg PO BID #60 tab 10/28/19 Nitroglycerin Sl Tabs [Nitrostat] 0.4 mg SUBLINGUAL Q5M PRN #25 tab 10/28/19 Prasugrel [Effient] 10 mg PO DAILY #30 tab 10/28/19 Allergies Allergy/AdvReac Type Severity Reaction Status Date / Time atorvastatin [From Lipitor] AdvReac Unknown Verified 01/11/20 11:29 Review of Systems ROS Statement: Those systems with pertinent positive or pertinent negative responses have been documented in the HPI. ROS Other: All systems not noted in ROS Statement are negative. EKG Findings - EKG Comments: EKG Findings:: EKG shows sinus rhythm of 82, VA 134, QRS 84, QTc 479 Past Medical History Past Medical History: Coronary Artery Disease (CAD), Fibromyalgia, GERD/Reflux, Hyperlipidemia, Myocardial Infarction (NH) Additional Past Medical History / Comment(s): 10/26/19 NH, pt states in the past she accidentally injected too much submatriptan for migraine and had a reaction and was told by her physician she may have had a small NH, past GERD, recently diagnosed with gallbladder polyp, cluster headaches, IBS, diverticular disease, bronchitis, past R patella and r hand fracture. Last Myocardial Infarction Date:: 10/26/19 History of Any Multi-Drug Resistant Organisms: None Reported Past Surgical History: Section, Heart Catheterization With Stent, Hysterectomy Additional Past Surgical History / Comment(s): Colonoscopies/EGDs Past Anesthesia/Blood Transfusion Reactions: No Reported Reaction Date of Last Stent Placement:: 10/26/19 Past Psychological History: Anxiety, Depression Smoking Status: Former smoker - Past Family History Mother Family Medical History: No Reported History Additional Family Medical History / Comment(s): Mother is healthy and is 81 yrs old. Father Family Medical History: No Reported History Additional Family Medical History / Comment(s): Father is 74 and healthy General Exam Limitations: no limitations General appearance: alert, appears intoxicated, anxious Head exam: Present: atraumatic, normocephalic, normal inspection Eye exam: Present: normal appearance, PERRL, EOMI. Absent: scleral icterus, conjunctival injection, periorbital swelling ENT exam: Present: normal exam, mucous membranes moist Neck exam: Present: normal inspection. Absent: tenderness, meningismus, lymphadenopathy Respiratory exam: Present: normal lung sounds bilaterally. Absent: respiratory distress, wheezes, rales, rhonchi, stridor Cardiovascular Exam: Present: regular rate, normal rhythm, normal heart sounds. Absent: systolic murmur, diastolic murmur, rubs, gallop, clicks GI/Abdominal exam: Present: soft, normal bowel sounds. Absent: distended, tenderness, guarding, rebound, rigid Extremities exam: Present: normal inspection, full ROM, normal capillary refill. Absent: tenderness, pedal edema, joint swelling, calf tenderness Back exam: Present: normal inspection Neurological exam: Present: alert, oriented X3, CN II-XII intact Psychiatric exam: Present: normal affect, normal mood Skin exam: Present: warm, dry, intact, normal color. Absent: rash Course Vital Signs 02/26/20 02/26/20 02/26/20 23:09 23:33 23:39 Temperature 97.7 F Pulse Rate 86 Respiratory 18 Rate Blood Pressure 96/64 83/69 89/64 O2 Sat by Pulse 99 Oximetry - Reevaluation(s) Reevaluation #1: 02/27/20 00:42 Medical records reviewed 02/27/20 00:42 Patient does have history of heart disease and stents Reevaluation #2: 02/27/20 00:42 Patient still chest pain and anxiety, some nausea - Consultations Consultation #1: Spoke with sound Dr for Dr. Quinn, they agree for admission Chest Pain MDM - MDM 49 female with history of alcohol is heart disease coming in with chest pain. Patient be admitted for chest pain observation Critical Care Time Critical Care Time: Yes Total Critical Care Time: 31 Disposition Clinical Impression: Chest pain, Alcohol intoxication Disposition: ADMITTED IP TO THIS HOSP Condition: Undetermined Is patient prescribed a controlled substance at d/c from ED?: No Referrals: Az Quinn MD [Primary Care Provider] - 1-2 days
[2020-02-27 00:16] LABS: Basophils # (A) 0.1 k/uL (0-0.2); Basophils % (A) 1 %; Eosinophils # (A) 0.3 k/uL (0-0.7); Eosinophils % (A) 3 %; HCT 37.7 % (34.0-46.0); HGB 12.4 gm/dL (11.4-16.0); Lymphocytes # (A) 3.1 k/uL (1.0-4.8); Lymphocytes % (A) 37 %; MCH 33.3 pg (25.0-35.0); MCV 100.9 fL (80.0-100.0); Mean Platelet Volume 6.8; Monocytes # (A) 0.5 k/uL (0-1.0); Monocytes % (A) 5 %; Neutrophils # (A) 4.3 k/uL (1.3-7.7); Neutrophils % (A) 51 %; Platelet Count 285 k/uL (150-450); RBC 3.74 m/uL (3.80-5.40); RDW 12.4 % (11.5-15.5); WBC 8.4 k/uL (3.8-10.6)
[2020-02-27 00:23] LABS: ALT 25 U/L (4-34); AST 27 U/L (14-36); African American GFR (CKD) >90 (>60 ml/min/1.73 sqM); Albumin 3.6 g/dL (3.5-5.0); Alkaline Phosphatase 94 U/L (38-126); Anion Gap 8 mmol/L; Blood Urea Nitrogen 13 mg/dL (7-17); Calcium 7.9 mg/dL (8.4-10.2); Carbon Dioxide 25 mmol/L (22-30); Chloride 104 mmol/L (98-107); Creatine Kinase 80 U/L (30-135); Glucose 103 mg/dL (74-99); Magnesium 2.3 mg/dL (1.6-2.3); Non-African American GFR(CKD) 81 (>60 ml/min/1.73 sqM); Sodium 137 mmol/L (137-145); Total Bilirubin <0.1 mg/dL (0.2-1.3); Total Protein 6.3 g/dL (6.3-8.2)
[2020-02-27 00:32] LABS: Alcohol 267 mg/dL
[2020-02-27 00:43] LABS: Partial Thromboplastin Time 24.3 sec (22.0-30.0)
[2020-02-27] MEDS ORDERED: THIAMINE 100 MG/ML 2 ML VIAL IM STA (00:46)
[2020-02-27] MEDS ORDERED: LORazepam 2 MG/ML INJ IV PRN ×3 (00:46)
[2020-02-27] MEDS ORDERED: ASPIRIN 81 MG PO STA (01:17)
[2020-02-27] MEDS ORDERED: ALBUTEROL NEBULIZED 2.5 MG/3 ML INHALATION PRN (02:02)
--- NOTE | 2020-02-27 03:56 | P.HPIM ---
History of Present Illness H&P Date: 02/27/20 Chief Complaint: chest pain 49 year old female with CAD , s/p stent October 2019 patient comes in with two day history of off/on chest pain , crushing central radiating to her left arm, she rated it 7/10 lasting 5-10 minutes, resolved with nitro , but was recurrent with no association with physical activity , however, admits to anxiety. she denies any associated palpitations, fever, chills, coughing , vomiting, , dizziness, light headedness, or sweating. however, she did feel nauseous today. she reports pain never went away since her most recent heart attack back in october and continues to have chest pain attacks often. patient also admits to drinking alcohol as often as every other day . however she seemed to be surprised when i told her her alcohol level was high. she otherwise denies any other compliants of sick contact, or SOB, denies any URI , changes in her bowel or urinary habits. denies any GI bleeding in the ED her labs unremarkable other than elevated alcohol level. she continued to complain of chest pain in the ED for which admitted to get evaluated by cardiology . EKG showed NSR. trops negative Review of Systems Pertinent positives as noted in HPI. All other systems were reviewed and are negative Past Medical History Past Medical History: Coronary Artery Disease (CAD), Fibromyalgia, GERD/Reflux, Hyperlipidemia, Myocardial Infarction (NH) Additional Past Medical History / Comment(s): 10/26/19 NH, gallbladder polyp, cluster headaches, IBS, diverticular disease, bronchitis, past R patella and r hand fracture. Last Myocardial Infarction Date:: 10/26/19 History of Any Multi-Drug Resistant Organisms: None Reported Past Surgical History: Section, Heart Catheterization With Stent, Hysterectomy Additional Past Surgical History / Comment(s): Colonoscopies/EGDs Past Anesthesia/Blood Transfusion Reactions: No Reported Reaction Date of Last Stent Placement:: 10/26/19 Past Psychological History: Anxiety, Depression Smoking Status: Former smoker - Past Family History Mother Family Medical History: No Reported History Additional Family Medical History / Comment(s): Mother is healthy and is 81 yrs old. Father Family Medical History: No Reported History Additional Family Medical History / Comment(s): Father is 74 and healthy Medications and Allergies Home Medications Medication Instructions Recorded Confirmed Type DULoxetine HCL [Cymbalta] 120 mg PO HS 10/26/19 01/11/20 History Topiramate 100 mg PO BID 10/26/19 01/11/20 History clonazePAM [KlonoPIN] 2 mg PO HS 10/26/19 01/11/20 History Aspirin 81 mg PO DAILY #30 chew 10/28/19 01/11/20 Rx Metoprolol Tartrate [Lopressor] 25 mg PO BID #60 tab 10/28/19 01/11/20 Rx Nitroglycerin Sl Tabs [Nitrostat] 0.4 mg SUBLINGUAL Q5M PRN #25 tab 10/28/19 01/11/20 Rx Prasugrel [Effient] 10 mg PO DAILY #30 tab 10/28/19 01/11/20 Rx Albuterol Inhaler (Bulk) [Ventolin 2 puff INHALATION RT-Q6H PRN 11/03/19 01/11/20 History Hfa Inhaler (Bulk)] Ergocalciferol [Vitamin D2 50,000 unit PO Q7D 01/11/20 01/11/20 History (DRISDOL)] Allergies Allergy/AdvReac Type Severity Reaction Status Date / Time atorvastatin [From Lipitor] AdvReac Unknown Verified 01/11/20 11:29 Physical Exam Vitals: Vital Signs Temp Pulse Resp BP Pulse Ox 02/27/20 01:43 97.7 F 87 16 103/83 99 02/27/20 01:30 88 14 102/66 02/27/20 01:00 78 14 99/74 100 02/27/20 00:30 96/71 99 02/27/20 00:00 89/64 99 02/26/20 23:39 89/64 02/26/20 23:33 83/69 02/26/20 23:30 96/64 02/26/20 23:16 96/64 99 02/26/20 23:09 97.7 F 86 18 96/64 99 Intake and Output 02/26/20 02/26/20 02/27/20 14:59 22:59 06:59 Other: Weight 77.111 kg Constitutional: No acute distress, conversant, pleasant Eyes: Anicteric sclerae, moist conjunctiva, no lid-lag Pupils equal round reactive to light ENMT: NC/AT Oropharynx clear, no erythema, or exudates Neck: Supple, FROM, no masses, or JVD No carotid bruits No thyromegaly Lungs: Clear to auscultation Clear to percussion Normal respiratory effort, no accessory muscle use Cardiovascular: Heart regular in rate and rhythm, No murmurs, gallops, or rubs No peripheral edema Abdominal: Soft Nontender, no guarding, rebound or rigidity Abdomen moving with respiration Normoactive bowel sounds No hepatomegaly, No splenomegaly No palpable mass No abdominal wall hernia noted Skin: Normal temperature, tone, texture, turgor No induration No subcutaneous nodules No rash, lesions No ulcers Extremities: No digital cyanosis No clubbing Pedal pulses intact and symmetrical Radial pulses intact and symmetrical No calf tenderness Psychiatric: Alert and oriented to person, place and time Appropriate affect fair judgement Neuro Muscles Strength 5/5 in all 4 extremities Sensation to light touch grossly present throughout Cranial nerves II-XII grossly intact No focal sensory deficits Lymphatics: no palpable cervical or supraclavicular , or inguinal lymph nodes Results CBC & Chem 7: 02/26/20 23:42 02/26/20 23:42 Labs: Abnormal Lab Results - Last 24 Hours (Table) 02/26/20 02/26/20 Range/Units 23:42 23:42 RBC 3.74 L (3.80-5.40) m/uL MCV 100.9 H (80.0-100.0) fL Glucose 103 H (74-99) mg/dL Calcium 7.9 L (8.4-10.2) mg/dL Total Bilirubin <0.1 L (0.2-1.3) mg/dL Serum Alcohol 267 H* mg/dL Assessment and Plan Assessment: 49-year-old female with coronary artery disease and alcohol abuse. Comes in with chest pain left-sided over the past 2 days to rule out acute coronary s yndrome. Patient had recent heart attack and stents in October 2019 with left heart cath showing residual moderate disease of the proximal LAD. Admitted for cardiology evaluation to rule out ACS anticipated length of stay less than 2 midnights Left-sided chest pain rule out ACS Cardiac monitoring EKG normal sinus rhythm Trend troponins Cardiology eval Continue Effient aspirin and statin Continue cardiac O meds Pain control Alcohol abuse with acute moderate alcohol intoxication IV fluid hydration Patient counseled to quit alcohol Thiamine Benzos when necessary per CIWA scale Chronic conditions GERD Hyperlipidemia Resume home meds Tobacco smoking Patient counseled to quit smoking CODE STATUS: Full code DVT prophylaxis: heparin subcu 3 times a day Discussed with: Patient, ER, Anticipated length of stay < than [address]: home A total of 60 minutes was spent on the care of this complex patient more than 50% of the time was spent in counseling and care coordination.
[2020-02-27] MEDS: PANTOPRAZOLE 40 MG TABLET PO SCH ×2 (06:31→17:22)
[2020-02-27] MEDS ORDERED: REGADENOSON 0.4 MG/5 ML SYRINGE IV ONE (07:29)
[2020-02-27] MEDS ORDERED: PRASUGREL 10 MG TAB PO SCH (09:00)
[2020-02-27] MEDS ORDERED: ASPIRIN 81 MG PO SCH (09:00)
--- NOTE | 2020-02-27 09:09 | CONS ---
CONSULTATION Bryan Palm is a 49-year-old lady with a known history of CAD, smoking, hypertension. This lady on October 26, 2019, presented with what seems to be an acute inferior non ST elevation [place] with total occlusion of RCA, underwent stenting of that. About 10 days later she underwent stenting of LAD with a positive FFR of a borderline lesion. Since then, she has been doing well. Unfortunately, she has been smoking regularly and drinking alcohol. She came in intoxicated, complaining of chest pressure. She has no chest pressure at this time. She is resting comfortably. Her initial set of troponin is normal. She has no chest pressure at this time, and EKG is also unremarkable. PAST MEDICAL HISTORY: 1. CAD with 2 vessel stenting as indicated above in October 2019. 2. Fibromyalgia. 3. Gastroesophageal reflux disease. 4. Hypertension. 5. Hyperlipidemia. 6. Smoking and chronic obstructive pulmonary disease. 7. Alcoholism. 8. MEDICATIONS: At home include she takes: Albuterol inhaler. She takes aspirin 81 mg daily, prasugrel 10 mg daily, metoprolol tartrate 25 mg b.i.d., sublingual nitroglycerin, and she takes Klonopin. ALLERGIES: It is unclear as to what her are. She claims he is ALLERGIC TO ATORVASTATIN. PHYSICAL EXAMINATION: Blood pressure is 108/70, pulse rate is 80 per minute, regular. HEENT: Unremarkable. Fundus was not examined by me. Neck is supple. No JVD. I do not hear a carotid bruit. There is no thyromegaly. Heart exam reveals S1, S2 heard normally. No rub, murmur or gallop. Lungs are clear. Abdomen is soft, nontender. Lower extremities reveal normal pulses. No edema. Central nervous system is normal. EKG revealed sinus mechanism, no acute changes. LABORATORY DATA: Initial laboratory data revealed that the initial set of troponin is normal. Her alcohol level is 267. All other laboratory data looks to be okay. RECOMMENDATIONS: I am recommending that we increase activity, resume an atorvastatin at a lower dose of 40 mg daily and perform a Lexiscan stress test tomorrow morning. Her aspirin will be reduced from 325-81 mg daily. I discussed my thoughts in detail with the patient. Thank you for the consultation. MMODL / IJN: [id number] /
[2020-02-27] MEDS: METOPROLOL TARTRATE 25 MG TAB PO SCH ×2 (09:21→21:25)
[2020-02-27] MEDS: TOPIRAMATE 100 MG TAB PO SCH ×2 (09:21→21:25)
[2020-02-27] MEDS: HEPARIN SODIUM,PORCINE 5,000 UNIT/ML 1 ML VIAL SQ SCH ×2 (09:21→17:22)
--- NOTE | 2020-02-27 13:42 | P.PN ---
Subjective Progress Note Date: 02/27/20 Principal diagnosis: Chest pain Patient is a 49-year-old female with history of chest pain, stent in 2019 October presented with 2 day history of intermittent chest pain 5-10 minutes. Patient states that since her heart attack she has been having intermittent chest pain. Patient also reports regular drinking and had a positive alcohol level in the emergency room. Objective - Vital Signs Vital signs: Vital Signs Temp 97.7 F 02/27/20 08:00 Pulse 87 02/27/20 08:00 Resp 16 02/27/20 04:00 BP 99/58 02/27/20 08:00 Pulse Ox 97 02/27/20 08:00 Intake & Output 02/26/20 02/27/20 02/27/20 18:59 06:59 18:59 Intake Total 800 240 Balance 800 240 Weight 81 kg Intake: Intake, IV Titration 800 Amount Sodium Chloride 0.9% 1, 800 000 ml @ 100 mls/hr IV . Q10H STA Rx#:[id number] Oral 240 Other: # Voids 1 0 # Bowel Movements 0 - Constitutional General appearance: Present: no acute distress - Respiratory Respiratory: bilateral: CTA - Cardiovascular Rhythm: regular - Gastrointestinal General gastrointestinal: Present: normal bowel sounds - Labs CBC & Chem 7: 02/26/20 23:42 02/26/20 23:42 Labs: Abnormal Lab Results - Last 24 Hours (Table) 02/26/20 02/26/20 Range/Units 23:42 23:42 RBC 3.74 L (3.80-5.40) m/uL MCV 100.9 H (80.0-100.0) fL Glucose 103 H (74-99) mg/dL Calcium 7.9 L (8.4-10.2) mg/dL Total Bilirubin <0.1 L (0.2-1.3) mg/dL Serum Alcohol 267 H* mg/dL Assessment and Plan (1) Chest pain Narrative/Plan: Appreciate cardiology input plan for stress test in a.m. and enzymes have been negative Current Visit: Yes Status: Acute Code(s): R07.9 - CHEST PAIN, UNSPECIFIED SNOMED Code(s): 69485316 (2) Alcohol intoxication Narrative/Plan: Patient was counseled VERO, no evidence of withdrawal Current Visit: Yes Status: Acute Code(s): F10.929 - ALCOHOL USE, UNSPECIFIED WITH INTOXICATION, UNSPECIFIED SNOMED Code(s): 21048883 Plan: Patient seen in follow-up await further diagnostic testing
[2020-02-27] MEDS: THIAMINE 100 MG TAB PO SCH (17:22)
[2020-02-27] MEDS ORDERED: DULoxetine HCL 60 MG CAPSULE.DR PO SCH (21:00)
[2020-02-28] MEDS: MORPHINE SULFATE 4 MG/ML SYRINGE IV PRN ×2 (01:37→12:30)
[2020-02-28] MEDS: HEPARIN SODIUM,PORCINE 5,000 UNIT/ML 1 ML VIAL SQ SCH ×2 (01:37→13:35)
[2020-02-28] MEDS: NITROGLYCERIN SL TABS 0.4 MG TAB SUBLINGUAL PRN ×5 (01:37→12:17)
[2020-02-28 05:33] VITALS: RESP 18
[2020-02-28] MEDS: PANTOPRAZOLE 40 MG TABLET PO SCH (06:32)
[2020-02-28] MEDS: THIAMINE 100 MG TAB PO SCH (06:32)
[2020-02-28] MEDS ORDERED: DIPYRIDAMOLE IV ONE (07:00)
[2020-02-28] MEDS ORDERED: CAFFEINE CITRATE 60 MG/3 ML VIAL IV PRN (07:00)
[2020-02-28] MEDS ORDERED: SODIUM CHLORIDE 0.9% IV ONE (07:00)
[2020-02-28] MEDS ORDERED: AMINOPHYLLINE 500 MG/20 ML VIAL IV PRN (07:00)
[2020-02-28 07:29] LABS: ALT 21 U/L (4-34); AST 20 U/L (14-36); African American GFR (CKD) >90 (>60 ml/min/1.73 sqM); Albumin 3.1 g/dL (3.5-5.0); Alkaline Phosphatase 106 U/L (38-126); Anion Gap 3 mmol/L; Blood Urea Nitrogen 17 mg/dL (7-17); Calcium 8.4 mg/dL (8.4-10.2); Carbon Dioxide 25 mmol/L (22-30); Chloride 108 mmol/L (98-107); Cholesterol 202 mg/dL (<200); Glucose 100 mg/dL (74-99); HDL Cholesterol 56 mg/dL (40-60); LDL Cholesterol,Calculated 99 mg/dL (0-99); Non-African American GFR(CKD) 85 (>60 ml/min/1.73 sqM); Potassium 4.3 mmol/L (3.5-5.1); Sodium 136 mmol/L (137-145); Total Bilirubin 0.3 mg/dL (0.2-1.3); Total Protein 5.7 g/dL (6.3-8.2); Triglycerides 234 mg/dL (<150)
[2020-02-28] MEDS ORDERED: ASPIRIN 325 MG TAB PO SCH (09:00)
[2020-02-28] MEDS ORDERED: AMINOPHYLLINE 500 MG/20 ML VIAL IV ONE (10:55)
--- NOTE | 2020-02-28 11:53 | P.PN ---
Subjective Progress Note Date: 02/28/20 This is a 49-year-old female with history of coronary artery disease, she presented to the hospital with a myocardial infarction in October 2019, she underwent stenting of the RCA at that time. 10 days later she underwent stenting of the LAD, history of smoking, hypertension, hyperlipidemia, al coholism, GERD, fibromyalgia. Who presented to the hospital with symptoms of chest discomfort. She was intoxicated according to be Dr. Himanshu Doe's consultation. Her troponins were negative EKG was unremarkable, Dr. Doe recommended the patient to undergo a Persantine stress test today. She was seen and examined this morning, denied any chest pain at the time of our examination. Hemodynamically stable. Objective - Vital Signs Vital signs: Vital Signs Temp 97.1 F L 02/28/20 04:00 Pulse 77 02/28/20 04:00 Resp 18 02/28/20 04:00 BP 131/72 02/28/20 04:00 Pulse Ox 100 02/28/20 04:00 Intake & Output 02/27/20 02/28/20 02/28/20 18:59 06:59 18:59 Intake Total 720 540 Balance 720 540 Weight 82 kg Intake: Oral 720 540 Other: # Voids 0 0 1 # Bowel Movements 0 0 - Exam PHYSICAL EXAMINATION: GENERAL: 49-year-old female in no acute distress at the time of my examination HEENT: Head is atraumatic, normocephalic. Pupils equal, round. Sclera anicteric. Conjunctiva are clear. Mucous membranes of the mouth are moist. Neck is supple. There is no elevated jugular venous pressure. No carotid bruit is heard. HEART EXAMINATION: Heart S1, S2 normal. No murmur or gallop heard. CHEST EXAMINATION: Lungs reveal overall decreased air exchange ABDOMEN: Soft, nontender. Bowel sounds are heard. No organomegaly noted. EXTREMITIES: 2+ peripheral pulses with no evidence of peripheral edema and no calf tenderness noted. NEUROLOGIC patient is awake, alert and oriented X3. . - Labs CBC & Chem 7: 02/26/20 23:42 02/28/20 06:29 Labs: Abnormal Lab Results - Last 24 Hours (Table) 02/28/20 Range/Units 06:29 Sodium 136 L (137-145) mmol/L Chloride 108 H (98-107) mmol/L Glucose 100 H (74-99) mg/dL Total Protein 5.7 L (6.3-8.2) g/dL Albumin 3.1 L (3.5-5.0) g/dL Triglycerides 234 H (<150) mg/dL Cholesterol 202 H (<200) mg/dL Assessment and Plan Plan: Assessment and plan #1 atypical chest discomfort #2 alcohol intoxication #3 nicotine dependence #4 coronary artery disease with two-vessel stenting #5 hypertension #6 hyperlipidemia #7 COPD Plan Patient is scheduled today to undergo Persantine stress test, if negative she may be able to be discharged home from cardiology's perspective. DNP note has been reviewed, I agree with a documented findings and plan of care. Patient was seen and examined.
[2020-02-28 12:10] VITALS: TEMP 98.1
--- NOTE | 2020-02-28 12:45 | EST ---
EXERCISE STRESS AGE: 59 SEX: F HT: 61" WT: 180 PROTOCOL: Persantine Cardiolite Stress Test HEART RATE REST: 62 BLOOD PRESSURE REST: 120/64 MAXIMUM HEART RATE ACHIEVED: 85 MAXIMUM BLOOD PRESSURE: 151/85 85% MPHR: 144 100% MPHR: 169 INDICATIONS: Chest pain. CLINICAL INFORMATION: Baseline EKG shows sinus rhythm, normal axis, normal intervals. Patient was given intravenous Persantine as per protocol. Did not have chest pain or diagnostic ST- segment depression. CONCLUSIONS: 1. Negative stress test by EKG criteria. 2. Cardiolite portion of the stress test will be reported separately. MMODL / IJN: [id number] /
--- NOTE | 2020-02-28 14:22 | NM ---
EXAMINATION TYPE: NM stress persantine cardiolit DATE OF EXAM: 02/28/2020 COMPARISON: NONE HISTORY: Chest pain TECHNIQUE: After the intravenous administration of 9.7 mCi Tc 99m Sestamibi - Cardiolite resting SPE CT images acquired 60 minutes post injection. The patient received 45 mg Persantine, 26.2 mCi Tc 99m Sestamibi - Stress images obtained 35 minutes post injection. 100 mg Aminophyllin was utilized. FINDINGS: No fixed or reversible perfusion defects are evident. Polar maps are normal. Gated wall motion is normal. Ejection fraction of 66% is normal. Previous mild ischemic changes at the cardiac apex on stress from the November 04, 2019 examination i s not appreciated on the current exam. IMPRESSION: 1. Normal stress myocardial study.
--- NOTE | 2020-02-28 14:45 | P.DS ---
Providers Date of admission: 02/27/20 01:17 Expected date of discharge: 02/28/20 Attending physician: Edmar Alonso MD Consults: 02/27/20 01:17 Consult Physician Urgent Consulting Provider: Rachel Dominguez Consult Reason/Comments: cp Do you want consulting provider notified?: Yes Primary care physician: [facility] Hospital Course: Discharge Diagnosis: non cardiac chest pain Anxiety Alcohol misuse pattern GERD Fibromyalgia HLD- Elevated triglycerides Hospital Course: Patient is a 59-year-old female with a past medical history of fibromyalgia, coronary artery disease with history of stent to the LAD, GERD, dyslipidemia, and gallbladder disease who presented to the emergency department with complaints of chest pain. She had a negative troponin and a non ischemic EKG. omitted for chest pain rule out. Her troponins remained negative. She was seen by cardiology and underwent a Lexiscan stress test which showed no signs of active myocardial disease. We discussed the possibility of acid reflux secondary to her alcoholism or increased anxiety which she does admit to over COVID- 19 pandemic. She'll follow up with Aicha Villatoro her primary care practitioner on discharge. She will also follow-up with Dr. Louise and 2 weeks. Patient seen and examined at bedside. Chest pain is gone, last episode not responsive to Nitro and required morphine for relief. No nausea or vomiting. Vital signs reviewed and stable. General: non toxic, no distress, appears at stated age Derm: warm, dry Head: atraumatic, normocephalic, symmetric Eyes: EOMI, no lid lag, anicteric sclera Mouth: no lip lesion, mucus membranes moist Cardiovascular: S1S2 reg, no murmur, positive posterior tibial pulse bilateral, Lungs: CTA bilateral, no rhonchi, no rales , no accessory muscle use Abdominal: soft, nontender to palpation, no guarding, no appreciable organomegaly Ext: no gross muscle atrophy, no edema, no contractures Neuro: CN II-XI grossly intact, no focal neuro deficits Psych: Alert, oriented, appropriate affect A total of 25 minutes of time were spent preparing this complex discharge summar y . Patient Condition at Discharge: Undetermined Plan - Discharge Summary Discharge Rx Participant: Yes New Discharge Prescriptions: New Metoprolol Tartrate [Lopressor] 25 mg PO BID #60 tab Pantoprazole [Protonix] 40 mg PO AC-BID #60 tablet.dr Topiramate [Topamax] 100 mg PO BID tab Continue clonazePAM [KlonoPIN] 1 - 2 mg PO HS DULoxetine HCL [Cymbalta] 120 mg PO HS Aspirin 81 mg PO DAILY #30 chew Prasugrel [Effient] 10 mg PO DAILY #30 tab Nitroglycerin Sl Tabs [Nitrostat] 0.4 mg SUBLINGUAL Q5M PRN #25 tab PRN Reason: Chest Pain Albuterol Inhaler (Bulk) [Ventolin Hfa Inhaler (Bulk)] 2 puff INHALATION RT- Q6H PRN PRN Reason: Shortness Of Breath Ergocalciferol [Vitamin D2 (DRISDOL)] 50,000 unit PO Q14D Lisinopril [Zestril] 2.5 mg PO DAILY Discharge Medication List DULoxetine HCL [Cymbalta] 120 mg PO HS 10/26/19 [History] clonazePAM [KlonoPIN] 1 - 2 mg PO HS 10/26/19 [History] Aspirin 81 mg PO DAILY #30 chew 10/28/19 [Rx] Nitroglycerin Sl Tabs [Nitrostat] 0.4 mg SUBLINGUAL Q5M PRN #25 tab 10/28/19 [Rx] Prasugrel [Effient] 10 mg PO DAILY #30 tab 10/28/19 [Rx] Albuterol Inhaler (Bulk) [Ventolin Hfa Inhaler (Bulk)] 2 puff INHALATION RT-Q6H PRN 11/03/19 [History] Ergocalciferol [Vitamin D2 (DRISDOL)] 50,000 unit PO Q14D 01/11/20 [History] Lisinopril [Zestril] 2.5 mg PO DAILY 02/27/20 [History] Metoprolol Tartrate [Lopressor] 25 mg PO BID #60 tab 02/28/20 [Rx] Pantoprazole [Protonix] 40 mg PO AC-BID #60 tablet. 02/28/20 [Rx] Topiramate [Topamax] 100 mg PO BID tab 02/28/20 [Rx] Follow up Appointment(s)/Referral(s): Az Quinn MD [Primary Care Provider] - 1-2 days Javier Ceballos MD [STAFF PHYSICIAN] - 2 Weeks Activity/Diet/Wound Care/Special Instructions: Activity: as tolerated Diet: heart healthy Special Instructions: Seek medical attention if recurrent chest pain, difficulty in breathing, or feeling like you will pass out. Discharge Disposition: HOME SELF-CARE
[2020-02-28 16:56] VITALS: BP 102/61; PULSE 49
== END 2020-02-28 16:55 | disposition home or self-care (01) ==
LOC: EC 23:05 → 3SCARD 02-27 01:17
PROVIDERS: ADMIT Internal Medicine; ATTEND Internal Medicine
DX: R07.89 Other chest pain (principal); F10.229 Alcohol dependence with intoxication, unspecified; Y90.8 Blood alcohol level of 240 mg/100 ml or more; R11.2 Nausea with vomiting, unspecified; F41.9 Anxiety disorder, unspecified; F32.9 Major depressive disorder, single episode, unspecified; G44.009 Cluster headache syndrome, unspecified, not intractable; K21.9 Gastro-esophageal reflux disease without esophagitis; M79.7 Fibromyalgia; E78.1 Pure hyperglyceridemia; E78.5 Hyperlipidemia, unspecified; Z95.5 Presence of coronary angioplasty implant and graft; I25.10 Atherosclerotic heart disease of native coronary artery without angina pectoris; I25.2 Old myocardial infarction; J44.9 Chronic obstructive pulmonary disease, unspecified; I10 Essential (primary) hypertension; F17.200 Nicotine dependence, unspecified, uncomplicated; K58.9 Irritable bowel syndrome, unspecified; Z87.09 Personal history of other diseases of the respiratory system; Z87.19 Personal history of other diseases of the digestive system; Z79.899 Other long term (current) drug therapy; Z79.82 Long term (current) use of aspirin; Z79.02 Long term (current) use of antithrombotics/antiplatelets; Z88.8 Allergy status to other drugs, medicaments and biological substances
CPT/HCPCS: 96376 ×2; 96361 ×2; 96372 ×3; 93005 ×3; 96374; 96375; 99291; 36415; 94640; 93017; 83880; 80061; 80053 ×2; 82550; 83690; 83735; 84484 ×2; 85025; 85610; 85730; 80320; 71046; 78452; G0378 ×2; A9500; J2060; J2270; J1644 ×2; J3411; J2405; J0280; J1885; J1245

== ENCOUNTER 2020-06-17 00:53 | Emergency (ER) | payer BC ==
[2020-06-17] MEDS ORDERED: MORPHINE SULFATE 4 MG/ML SYRINGE IV STA (01:16)
--- NOTE | 2020-06-17 01:24 | ED ---
Chest Pain HPI - General Chief Complaint: Chest Pain Stated Complaint: chest pain Time Seen by Provider: 06/17/20 01:01 Source: patient, EMS Mode of arrival: EMS Limitations: no limitations - History of Present Illness MD Complaint: chest pain -: days(s) Onset: during rest Pain Location: left chest Pain Radiation: back Severity: moderate Severity scale (1-10): 7 Quality: sharp Consistency: intermittent Improves With: nothing Worsens With: nothing Treatments Prior to Arrival: none - Related Data Home Medications Medication Instructions Recorded Confirmed DULoxetine HCL [Cymbalta] 120 mg PO HS 10/26/19 02/27/20 clonazePAM [KlonoPIN] 1 - 2 mg PO HS 10/26/19 02/27/20 Albuterol Inhaler (Mhu) [Ventolin 2 puff INHALATION RT-Q6H PRN 11/03/19 02/27/20 Hfa Inhaler (Mhu)] Ergocalciferol [Vitamin D2 50,000 unit PO Q14D 01/11/20 02/27/20 (DRISDOL)] lisinopriL [Zestril] 2.5 mg PO DAILY 02/27/20 02/27/20 Previous Rx's Medication Instructions Recorded Aspirin 81 mg PO DAILY #30 chew 10/28/19 Nitroglycerin Sl Tabs [Nitrostat] 0.4 mg SUBLINGUAL Q5M PRN #25 tab 10/28/19 Prasugrel [Effient] 10 mg PO DAILY #30 tab 10/28/19 Metoprolol Tartrate [Lopressor] 25 mg PO BID #60 tab 02/28/20 Pantoprazole [Protonix] 40 mg PO AC-BID #60 tablet.dr 02/28/20 Topiramate [Topamax] 100 mg PO BID tab 02/28/20 Methocarbamol [Robaxin-750] 750 mg PO TID PRN #30 tablet 06/17/20 Allergies Allergy/AdvReac Type Severity Reaction Status Date / Time atorvastatin [From Lipitor] AdvReac Unknown Verified 06/17/20 01:01 Review of Systems ROS Statement: Those systems with pertinent positive or pertinent negative responses have been documented in the HPI. ROS Other: All systems not noted in ROS Statement are negative. Constitutional: Denies: fever, chills Respiratory: Denies: cough, dyspnea, wheezes Cardiovascular: Reports: as per HPI, chest pain. Denies: palpitations, orthopnea, edema, syncope Gastrointestinal: Denies: abdominal pain, nausea, vomiting, diarrhea Genitourinary: Denies: dysuria, hematuria Musculoskeletal: Reports: as per HPI, back pain Skin: Denies: rash Neurological: Denies: headache, weakness, numbness EKG Findings - EKG Results: EKG: interpreted by ERMD, sinus rhythm (Rate 83 bpm), normal axis, normal QRS, normal ST/T - Blocks, [place], Hypertrophy, ST Abn: Repolarization changes or abnormalities: Q-T interval prolongation Past Medical History Past Medical History: Coronary Artery Disease (CAD), Fibromyalgia, GERD/Reflux, Hyperlipidemia, Myocardial Infarction ([place]) Additional Past Medical History / Comment(s): 10/26/19 [place], gallbladder polyp, cluster headaches, IBS, diverticular disease, bronchitis, past R patella and r hand fracture. Last Myocardial Infarction Date:: 10/26/19 History of Any Multi-Drug Resistant Organisms: None Reported Past Surgical History: Section, Heart Catheterization With Stent, Hysterectomy Additional Past Surgical History / Comment(s): Colonoscopies/EGDs, stents X2 Past Anesthesia/Blood Transfusion Reactions: No Reported Reaction Date of Last Stent Placement:: 10/26/19 Past Psychological History: Anxiety, Depression Smoking Status: Current some day smoker Past Alcohol Use History: Daily, Occasional Past Drug Use History: Marijuana - Past Family History Mother Family Medical History: No Reported History Additional Family Medical History / Comment(s): Mother is healthy and is 81 yrs old. Father Family Medical History: No Reported History Additional Family Medical History / Comment(s): Father is 74 and healthy General Exam Limitations: no limitations General appearance: alert, in no apparent distress Head exam: Present: atraumatic, normocephalic Eye exam: Present: normal appearance. Absent: scleral icterus, conjunctival injection Neck exam: Present: normal inspection Respiratory exam: Present: normal lung sounds bilaterally. Absent: respiratory distress, wheezes, rales, rhonchi, stridor Cardiovascular Exam: Present: regular rate, normal rhythm, normal heart sounds. Absent: systolic murmur, diastolic murmur, rubs, gallop GI/Abdominal exam: Present: soft. Absent: distended, tenderness, guarding, rebound, rigid, mass, pulsatile mass Extremities exam: Present: normal inspection, normal capillary refill. Absent: pedal edema, calf tenderness Back exam: Present: normal inspection, paraspinal tenderness. Absent: CVA tenderness (R), CVA tenderness (L), vertebral tenderness Neurological exam: Present: alert Skin exam: Present: warm, dry, intact, normal color. Absent: rash Course Vital Signs 06/17/20 00:55 Temperature 97.6 F Pulse Rate 91 Respiratory 18 Rate Blood Pressure 113/76 O2 Sat by Pulse 96 Oximetry Disposition Clinical Impression: Muscle strain Disposition: HOME SELF-CARE Condition: Good Instructions (If sedation given, give patient instructions): Muscle Strain (ED) Prescriptions: Methocarbamol [Robaxin-750] 750 mg PO TID PRN #30 tablet PRN Reason: pain Is patient prescribed a controlled substance at d/c from ED?: No Referrals: Az Quinn MD [Primary Care Provider] - 1-2 days
[2020-06-17 01:31] VITALS: RESP 18
--- NOTE | 2020-06-17 01:31 | XR ---
EXAMINATION TYPE: XR chest 2V DATE OF EXAM: 06/17/2020 COMPARISON: 02/26/2020 HISTORY: Chest pain TECHNIQUE: FINDINGS: Heart and mediastinum are normal. Lungs are clear. Diaphragm is normal. There are chest lisa ds. Bony thorax appears normal. IMPRESSION: Normal chest. No change.
[2020-06-17 01:40] LABS: Basophils # (A) 0.1 k/uL (0-0.2); Basophils % (A) 1 %; Eosinophils # (A) 0.4 k/uL (0-0.7); Eosinophils % (A) 5 %; HCT 41.1 % (34.0-46.0); HGB 13.5 gm/dL (11.4-16.0); Lymphocytes # (A) 3.4 k/uL (1.0-4.8); Lymphocytes % (A) 37 %; MCH 32.9 pg (25.0-35.0); MCHC 32.7 g/dL (31.0-37.0); MCV 100.6 fL (80.0-100.0); Mean Platelet Volume 6.7; Monocytes # (A) 0.6 k/uL (0-1.0); Monocytes % (A) 6 %; Neutrophils # (A) 4.6 k/uL (1.3-7.7); Neutrophils % (A) 50 %; Platelet Count 279 k/uL (150-450); RBC 4.08 m/uL (3.80-5.40); RDW 12.2 % (11.5-15.5); WBC 9.2 k/uL (3.8-10.6)
[2020-06-17 01:55] LABS: ALT 34 U/L (4-34); AST 46 U/L (14-36); African American GFR (CKD) >90 (>60 ml/min/1.73 sqM); Albumin 4.1 g/dL (3.5-5.0); Alkaline Phosphatase 81 U/L (38-126); Amylase 62 U/L (30-110); Anion Gap 9 mmol/L; Blood Urea Nitrogen 14 mg/dL (7-17); Calcium 8.3 mg/dL (8.4-10.2); Carbon Dioxide 23 mmol/L (22-30); Chloride 103 mmol/L (98-107); D-Dimer 0.34 mg/L FEU (<0.60); Glucose 87 mg/dL (74-99); INR 0.9 (<1.2); Magnesium 2.3 mg/dL (1.6-2.3); Non-African American GFR(CKD) >90 (>60 ml/min/1.73 sqM); Partial Thromboplastin Time 25.5 sec (22.0-30.0); Potassium 4.3 mmol/L (3.5-5.1); Prothrombin Time 9.4 sec (9.0-12.0); Sodium 135 mmol/L (137-145); Total Bilirubin 0.5 mg/dL (0.2-1.3); Total Protein 6.7 g/dL (6.3-8.2)
[2020-06-17 02:47] VITALS: BP 115/79; PULSE 89; TEMP 97.7
== END 2020-06-17 02:45 | disposition home or self-care (01) ==
LOC: EC 00:53
DX: T14.8XXA Other injury of unspecified body region, initial encounter (principal); F41.9 Anxiety disorder, unspecified; F32.9 Major depressive disorder, single episode, unspecified; I25.10 Atherosclerotic heart disease of native coronary artery without angina pectoris; M79.7 Fibromyalgia; I25.2 Old myocardial infarction; F17.200 Nicotine dependence, unspecified, uncomplicated; Z79.899 Other long term (current) drug therapy; Z88.8 Allergy status to other drugs, medicaments and biological substances; Z95.5 Presence of coronary angioplasty implant and graft; X58.XXXA Exposure to other specified factors, initial encounter
CPT/HCPCS: 36415; 93005; 85379; 80053; 82150; 83690; 83735; 84484; 85025; 85610; 85730; 80320; 71046; 99285; 96374; J2270

== ENCOUNTER 2021-10-15 10:46 | Emergency (ER) | payer BC ==
[2021-10-15] MEDS ORDERED: ONDANSETRON 4 MG/2 ML VIAL IVP STA (11:23)
[2021-10-15] MEDS ORDERED: MORPHINE SULFATE 4 MG/ML SYRINGE IV STA (11:23)
[2021-10-15] MEDS ORDERED: SODIUM CHLORIDE 0.9% 1,000 ML IV STA (11:23)
[2021-10-15 12:30] LABS: Basophils # (A) 0.1 k/uL (0-0.2); Basophils % (A) 1 %; Eosinophils # (A) 0.3 k/uL (0-0.7); Eosinophils % (A) 3 %; HCT 44.8 % (34.0-46.0); HGB 15.5 gm/dL (11.4-16.0); Lymphocytes # (A) 2.6 k/uL (1.0-4.8); Lymphocytes % (A) 30 %; MCH 33.9 pg (25.0-35.0); MCHC 34.7 g/dL (31.0-37.0); MCV 97.9 fL (80.0-100.0); Mean Platelet Volume 6.7; Monocytes # (A) 0.5 k/uL (0-1.0); Monocytes % (A) 6 %; Neutrophils % (A) 58 %; Platelet Count 327 k/uL (150-450); RBC 4.57 m/uL (3.80-5.40); RDW 11.9 % (11.5-15.5); WBC 8.6 k/uL (3.8-10.6)
[2021-10-15 12:44] LABS: ALT 23 U/L (4-34); AST 23 U/L (14-36); African American GFR (CKD) >90 (>60 ml/min/1.73 sqM); Alkaline Phosphatase 110 U/L (38-126); Amylase 57 U/L (30-110); Anion Gap 8 mmol/L; Blood Urea Nitrogen 25 mg/dL (7-17); Calcium 9.3 mg/dL (8.4-10.2); Carbon Dioxide 26 mmol/L (22-30); Chloride 103 mmol/L (98-107); Glucose 97 mg/dL (74-99); Lipase 148 U/L (23-300); Non-African American GFR(CKD) 85 (>60 ml/min/1.73 sqM); Potassium 4.7 mmol/L (3.5-5.1); Sodium 137 mmol/L (137-145); Total Bilirubin 0.4 mg/dL (0.2-1.3); Total Protein 7.1 g/dL (6.3-8.2)
[2021-10-15 13:15] LABS: Appearance,Urine Cloudy (Clear); Bilirubin,Urine Negative (Negative); Blood,Urine Moderate (Negative); Color,Urine Yellow; Glucose,Urine (UA) Negative (Negative); Ketones,Urine Negative (Negative); Leukocyte Esterase,Urine Small (Negative); Mucus,Urine Rare /hpf; Nitrite,Urine Negative (Negative); Protein,Urine Negative (Negative); RBC,Urine 9 /hpf (0-5); Specific Gravity,Urine 1.027 (1.001-1.035); Squamous Epithelial Cell,Urine 11 /hpf (0-4); Urobilinogen,Urine <2.0 mg/dL (<2.0); WBC,Urine 5 /hpf (0-5)
--- NOTE | 2021-10-15 13:26 | CT ---
EXAMINATION TYPE: CT abdomen pelvis w con DATE OF EXAM: 10/15/2021 HISTORY: RLQ pain CT DLP: 1176.2mGycm Automated Exposure Control for Dose Reduction was Utilized. CONTRAST: CT scan of the abdomen and pelvis is performed without oral but with IV Contrast, patient injected wi th 100 mL of Isovue 300. COMPARISON: CT abdomen pelvis October 24, 2016 FINDINGS: LUNG BASES: No significant abnormality is appreciated. LIVER/GB: No significant abnormality is appreciated. PANCREAS: No significant abnormality is seen. SPLEEN: No significant abnormality is seen. ADRENALS: No significant abnormality is seen. KIDNEYS: No significant abnormality is seen. BOWEL: No suspicious small or large bowel dilatation. Scattered colonic diverticula. [id number] e wall thickening and diverticula formation in the sigmoid colon with moderate ill-defined fluid and fat stranding consistent with acute diverticulitis in the pelvis axial image 68. No free air. No well -formed fluid collection or abscess. Appendix felt within normal limits from the cecum in the right u pper pelvis axial image 61 for reference. UTERUS/ADNEXA: Uterus surgically absent or markedly atrophic similar to prior. Scattered tiny pelvic phleboliths redemonstrated. LYMPH NODES: No greater than 1cm abdominal or pelvic lymph nodes are appreciated. OSSEOUS STRUCTURES: No significant abnormality is seen. OTHER: No significant additional abnormality is seen. IMPRESSION: CT findings consistent with a moderately inflamed but uncomplicated acute diverticulitis mid sigmoid colon central pelvis as detailed above.
--- NOTE | 2021-10-15 14:01 | ED ---
Abdominal Pain HPI - General Chief Complaint: Abdominal Pain Stated Complaint: Rt lower abd pain Time Seen by Provider: 10/15/21 11:09 Source: patient, RN notes reviewed Mode of arrival: ambulatory Limitations: no limitations - History of Present Illness Initial Comments: Patient is a 51-year-old female that presents to the emergency room complaining of right lower quadrant pain for the past several days. She notes that it is fairly constant with no relief. She notes that it is worse when she coughs. She notes that she is nauseous. She denied any history of diverticulitis kidney stones gallbladder attacks. She notes she still has her appendix. Patient was otherwise well-appearing. She denied any chest pain shortness of breath headache vomiting diarrhea constipation fever fatigue chills. - Related Data Home Medications Medication Instructions Recorded Confirmed DULoxetine HCL [Cymbalta] 60 mg PO DAILY 10/26/19 10/15/21 ALPRAZolam [Xanax] 1 mg PO HS 10/15/21 10/15/21 ARIPiprazole [Abilify] 5 mg PO DAILY 10/15/21 10/15/21 Aspirin EC [Ecotrin Low Dose] 81 mg PO DAILY 10/15/21 10/15/21 Metoprolol Tartrate [Lopressor] 25 mg PO HS 10/15/21 10/15/21 Metoprolol Tartrate [Lopressor] 50 mg PO QAM 10/15/21 10/15/21 lisinopriL [Zestril] 10 mg PO DAILY 10/15/21 10/15/21 Previous Rx's Medication Instructions Recorded Amoxicillin/Potassium Clav 1 tab PO Q12HR #20 tab 10/15/21 [Augmentin 875-125 Tablet] Allergies Allergy/AdvReac Type Severity Reaction Status Date / Time atorvastatin [From Lipitor] AdvReac "LIVER Verified 10/15/21 13:37 FAILURE" Review of Systems ROS Statement: Those systems with pertinent positive or pertinent negative responses have been documented in the HPI. ROS Other: All systems not noted in ROS Statement are negative. Past Medical History Past Medical History: Coronary Artery Disease (CAD), Fibromyalgia, GERD/Reflux, Hyperlipidemia, Myocardial Infarction ([place]) Additional Past Medical History / Comment(s): 10/26/19 [place], gallbladder polyp, cluster headaches, IBS, diverticular disease, bronchitis, past R patella and r hand fracture. Last Myocardial Infarction Date:: 10/26/19 History of Any Multi-Drug Resistant Organisms: None Reported Past Surgical History: Section, Heart Catheterization With Stent, Hysterectomy Additional Past Surgical History / Comment(s): Colonoscopies/EGDs, stents X2 Past Anesthesia/Blood Transfusion Reactions: No Reported Reaction Date of Last Stent Placement:: 10/26/19 Past Psychological History: Anxiety, Depression Smoking Status: Current some day smoker Past Alcohol Use History: Daily, Occasional Past Drug Use History: Marijuana - Past Family History Mother Family Medical History: No Reported History Additional Family Medical History / Comment(s): Mother is healthy and is 81 yrs old. Father Family Medical History: No Reported History Additional Family Medical History / Comment(s): Father is 74 and healthy General Exam Limitations: no limitations General appearance: alert, in no apparent distress, obese Head exam: Present: atraumatic, normocephalic, normal inspection Eye exam: Present: normal appearance, PERRL, EOMI. Absent: scleral icterus, conjunctival injection, periorbital swelling ENT exam: Present: normal exam, mucous membranes moist Neck exam: Present: normal inspection Respiratory exam: Present: normal lung sounds bilaterally. Absent: respiratory distress, wheezes, rales, rhonchi, stridor Cardiovascular Exam: Present: regular rate, normal rhythm, normal heart sounds. Absent: systolic murmur, diastolic murmur, rubs, gallop, clicks GI/Abdominal exam: Present: soft, tenderness (Right lower quadrant, positive Rovsing sign), normal bowel sounds. Absent: distended, guarding, rebound, rigid Extremities exam: Present: normal inspection, full ROM, normal capillary refill. Absent: tenderness, pedal edema, joint swelling, calf tenderness Neurological exam: Present: alert, oriented X3 Psychiatric exam: Present: normal affect, normal mood Skin exam: Present: warm, dry, intact, normal color. Absent: rash Course Vital Signs 10/15/21 10:48 Temperature 97.8 F Pulse Rate 69 Respiratory 18 Rate Blood Pressure 134/88 O2 Sat by Pulse 97 Oximetry Medical Decision Making - Medical Decision Making 51-year-old female with right lower quadrant abdominal pain. Labs, 1 L normal saline, 4 mg morphine, 4 mg of Zofran, CT of the abdomen and pelvis under. Labs unremarkable, CBC within normal limits no elevated white count, CMP unremarkable. Urinalysis shows several red blood cells but no bacteria or white blood cells. Computed tomography scan shows mild uncomplicated diverticulitis. Patient was informed of his results and is agreeable with discharge home with anabiotic therapy and follow-up to GI specialist. Case discussed with Dr. Alcala - Lab Data Result diagrams: 10/15/21 12:03 10/15/21 12:03 Lab Results 10/15/21 10/15/21 10/15/21 Range/Units 12: 12: 12:03 WBC 8.6 (3.8-10.6) k/uL RBC 4.57 (3.80-5.40) m/uL Hgb 15.5 (11.4-16.0) gm/dL Hct 44.8 (34.0-46.0) % MCV 97.9 (80.0-100.0) fL MCH 33.9 (25.0-35.0) pg MCHC 34.7 (31.0-37.0) g/dL RDW 11.9 (11.5-15.5) % Plt Count 327 (150-450) k/uL MPV 6.7 Neutrophils % 58 % Lymphocytes % 30 % Monocytes % 6 % Eosinophils % 3 % Basophils % 1 % Neutrophils # 5.0 (1.3-7.7) k/uL Lymphocytes # 2.6 (1.0-4.8) k/uL Monocytes # 0.5 (0-1.0) k/uL Eosinophils # 0.3 (0-0.7) k/uL Basophils # 0.1 (0-0.2) k/uL Sodium 137 (137-145) mmol/L Potassium 4.7 (3.5-5.1) mmol/L Chloride 103 (98-107) mmol/L Carbon Dioxide 26 (22-30) mmol/L Anion Gap 8 mmol/L BUN 25 H (7-17) mg/dL Creatinine 0.80 (0.52-1.04) mg/dL Est GFR (CKD-EPI)AfAm >90 (>60 ml/min/1.73 sqM) Est GFR (CKD-EPI)NonAf 85 (>60 ml/min/1.73 sqM) Glucose 97 (74-99) mg/dL Calcium 9.3 (8.4-10.2) mg/dL Total Bilirubin 0.4 (0.2-1.3) mg/dL AST 23 (14-36) U/L ALT 23 (4-34) U/L Alkaline Phosphatase 110 (38-126) U/L Total Protein 7.1 (6.3-8.2) g/dL Albumin 4.0 (3.5-5.0) g/dL Amylase 57 (30-110) U/L Lipase 148 (23-300) U/L Urine Color Yellow Urine Appearance Cloudy H (Clear) Urine pH 6.0 (5.0-8.0) Ur Specific [place] 1.027 (1.001-1.035) Urine Protein Negative (Negative) Urine Glucose (UA) Negative (Negative) Urine Ketones Negative (Negative) Urine Blood Moderate H (Negative) Urine Nitrite Negative (Negative) Urine Bilirubin Negative (Negative) Urine Urobilinogen <2.0 (<2.0) mg/dL Ur Leukocyte Esterase Small H (Negative) Urine RBC 9 H (0-5) /hpf Urine WBC 5 (0-5) /hpf Ur Squamous Epith Cells 11 H (0-4) /hpf Urine Mucus Rare H (None) /hpf - Radiology Data Radiology results: report reviewed, image reviewed CT of the abdomen and pelvis: Consistent with a moderately inflamed but uncomplicated acute diverticulitis mid sigmoid colon central pelvis as detailed above. Disposition Clinical Impression: Diverticulitis Disposition: HOME SELF-CARE Condition: Stable Instructions (If sedation given, give patient instructions): Diverticulitis (ED) Additional Instructions: Please return to the Emergency Department if symptoms worsen or any other concerns. Follow-up with primary care in 1-2 days. Take antibiotics as prescribed until complete. Prescriptions: Amoxicillin/Potassium Clav [Augmentin 875-125 Tablet] 1 tab PO Q12HR #20 tab Is patient prescribed a controlled substance at d/c from ED?: No Referrals: Juan Keller MD [Primary Care Provider] - 1-2 days Time of Disposition: 14:18
[2021-10-15 14:26] VITALS: BP 122/74; PULSE 70; RESP 16; TEMP 97.6
== END 2021-10-15 14:34 | disposition home or self-care (01) ==
LOC: EC 10:46
DX: K57.32 Diverticulitis of large intestine without perforation or abscess without bleeding (principal); I25.10 Atherosclerotic heart disease of native coronary artery without angina pectoris; M79.7 Fibromyalgia; K21.9 Gastro-esophageal reflux disease without esophagitis; E78.5 Hyperlipidemia, unspecified; I25.2 Old myocardial infarction; F41.9 Anxiety disorder, unspecified; F32.A Depression, unspecified; F17.200 Nicotine dependence, unspecified, uncomplicated; F12.90 Cannabis use, unspecified, uncomplicated; Z79.82 Long term (current) use of aspirin; Z90.710 Acquired absence of both cervix and uterus
CPT/HCPCS: 99284; 96374; 96375; 36415; 80053; 82150; 83690; 85025; 81001; 74177; J2270; J2405; Q9967

== ENCOUNTER → 2021-12-14 | Outpatient (CLI) | payer BC ==
[2021-12-14 19:48] LABS: Basophils # (A) 0.08 X 10*3/uL (0.00-0.10); Basophils % (A) 0.9 %; Eosinophils # (A) 0.01 X 10*3/uL (0.04-0.35); Eosinophils % (A) 0.1 %; HCT 45.1 % (37.2-46.3); HGB 14.8 g/dL (12.0-15.0); Lymphocytes # (A) 2.97 X 10*3/uL (0.90-5.00); Lymphocytes % (A) 33.1 %; MCH 32.2 pg (27.0-32.0); MCHC 32.8 g/dL (32.0-37.0); MCV 98.3 fL (80.0-97.0); Monocytes # (A) 0.79 X 10*3/uL (0.20-1.00); Monocytes % (A) 8.8 %; Neutrophils # (A) 5.08 X 10*3/uL (1.80-7.70); Neutrophils % (A) 56.8 %; Platelet Count 335 X 10*3/uL (140-440); RBC 4.59 X 10*6/uL (4.10-5.20); RDW 11.9 % (11.5-14.5); WBC 8.96 X 10*3/uL (4.50-10.00)
[2021-12-14 20:17] LABS: ALT 20 U/L (8-44); AST 18 U/L (13-35); African American GFR (CKD) 84.6 (60.0-200.0); Albumin 4.6 g/dL (3.8-4.9); Albumin/Globulin Ratio 1.64 (1.60-3.17); Alkaline Phosphatase 108 U/L (41-126); BUN/Creat Ratio 13.56 Ratio (12.00-20.00); Blood Urea Nitrogen 12.2 mg/dL (9.0-27.0); Calcium 9.4 mg/dL (8.7-10.3); Carbon Dioxide 25.6 mmol/L (20.0-27.5); Chloride 99 mmol/L (96-109); Chol/HDL Ratio 6.02 Ratio; Globulin 2.8 g/dL (1.6-3.3); Glucose 91 mg/dL (70-110); LDL Cholesterol,Calculated 190.2 mg/dL (0.0-131.0); Potassium 4.3 mmol/L (3.5-5.5); Sodium 137 mmol/L (135-145); Total Protein 7.4 g/dL (6.2-8.2)
== END | disposition home or self-care (01) ==
LOC: LABWHC1 14:25
PROVIDERS: ATTEND Internal Medicine
DX: E55.9 Vitamin D deficiency, unspecified (principal); E78.5 Hyperlipidemia, unspecified
CPT/HCPCS: 36415; 80053; 80061; 82306; 84443; 85025

== ENCOUNTER 2022-03-21 07:35 | Emergency (ER) | payer BC ==
[2022-03-21 07:40] VITALS: TEMP 97.6
[2022-03-21] MEDS ORDERED: SODIUM CHLORIDE 0.9% 1,000 ML IV STA ×2 (07:51→08:57)
[2022-03-21] MEDS ORDERED: diphenhydrAMINE 50 MG/ML 1 ML VIAL IVP STA (07:51)
[2022-03-21] MEDS ORDERED: MORPHINE SULFATE 4 MG/ML SYRINGE IV STA (07:51)
[2022-03-21] MEDS ORDERED: ONDANSETRON 4 MG/2 ML VIAL IVP STA (07:51)
[2022-03-21 08:13] LABS: Basophils # (A) 0.1 k/uL (0-0.2); Basophils % (A) 1 %; Eosinophils # (A) 0.3 k/uL (0-0.7); Eosinophils % (A) 4 %; HCT 47.6 % (34.0-46.0); HGB 14.9 gm/dL (11.4-16.0); Lymphocytes # (A) 1.8 k/uL (1.0-4.8); Lymphocytes % (A) 21 %; MCH 32.2 pg (25.0-35.0); MCHC 31.2 g/dL (31.0-37.0); MCV 103.2 fL (80.0-100.0); Mean Platelet Volume 6.6; Monocytes # (A) 0.5 k/uL (0-1.0); Monocytes % (A) 5 %; Neutrophils # (A) 5.9 k/uL (1.3-7.7); Neutrophils % (A) 68 %; Platelet Count 349 k/uL (150-450); RBC 4.61 m/uL (3.80-5.40); RDW 11.6 % (11.5-15.5); WBC 8.8 k/uL (3.8-10.6)
[2022-03-21 08:22] LABS: INR 0.9 (<1.2); Partial Thromboplastin Time 24.1 sec (22.0-30.0); Prothrombin Time 9.6 sec (9.0-12.0)
[2022-03-21 08:32] LABS: ALT 27 U/L (4-34); AST 25 U/L (14-36); African American GFR (CKD) >90 (>60 ml/min/1.73 sqM); Albumin 4.1 g/dL (3.5-5.0); Alkaline Phosphatase 83 U/L (38-126); Amylase 49 U/L (30-110); Anion Gap 9 mmol/L; Blood Urea Nitrogen 18 mg/dL (7-17); Calcium 8.9 mg/dL (8.4-10.2); Carbon Dioxide 26 mmol/L (22-30); Chloride 103 mmol/L (98-107); Glucose 123 mg/dL (74-99); Lipase 144 U/L (23-300); Non-African American GFR(CKD) 82 (>60 ml/min/1.73 sqM); Potassium 4.7 mmol/L (3.5-5.1); Sodium 138 mmol/L (137-145); Total Bilirubin 0.5 mg/dL (0.2-1.3); Total Protein 6.9 g/dL (6.3-8.2)
--- NOTE | 2022-03-21 08:51 | CT ---
EXAMINATION TYPE: CT abdomen pelvis w con DATE OF EXAM: 03/21/2022 COMPARISON: CT dated 10/15/2021 HISTORY: abd pain/diarrhea CT DLP: 1273.3 mGycm Automated exposure control for dose reduction was used. TECHNIQUE: Helical acquisition of images was performed from the lung bases through the pelvis. CONTRAST: Performed without Oral Contrast and with IV Contrast, patient injected with 100 mL of Isovue 300. FINDINGS: LUNG BASES: Suspected cardiomegaly. LIVER/GB: Enlarged liver without definite focal lesion. Unremarkable gallbladder. PANCREAS: No significant abnormality is seen. SPLEEN: No significant abnormality is seen. ADRENALS: No significant abnormality is seen. KIDNEYS: Unremarkable kidneys. FREE AIR: No free air is visualized. RETROPERITONEAL ADENOPATHY: None visualized REPRODUCTIVE ORGANS: Previous hysterectomy. No gross adnexal mass. URINARY BLADDER: No significant abnormality is seen. PELVIC ADENOPATHY: Scattered subcentimeter bilateral inguinal and external iliac lymph nodes. OSSEOUS STRUCTURES: No aggressive bone lesion. BOWEL: Unremarkable nondistended stomach, duodenum and small bowel. Scattered uncomplicated colonic diverticulosis. No convincing evidence of acute diverticulitis. Normal appendix. OTHER: Scattered arterial atherosclerotic calcifications. No sizable ascites. Small fat-containing um bilical hernia. Suspected adhesions between the sigmoid colon and the left adnexa. IMPRESSION: Colonic diverticulosis without evidence of acute diverticulitis. Mild acute colitis can't be excluded by this CT scan. No definite acute abnormality seen in the abdomen or the pelvis otherwise. Incident al findings as described above.
[2022-03-21 09:25] LABS: Appearance,Urine Clear (Clear); Bilirubin,Urine Negative (Negative); Blood,Urine Trace (Negative); Color,Urine Light Yellow; Glucose,Urine (UA) Negative (Negative); Ketones,Urine Negative (Negative); Leukocyte Esterase,Urine Small (Negative); Mucus,Urine Rare /hpf; Nitrite,Urine Negative (Negative); PH, Urine 5.5 (5.0-8.0); Protein,Urine Negative (Negative); RBC,Urine 1 /hpf (0-5); Specific Gravity,Urine 1.026 (1.001-1.035); Squamous Epithelial Cell,Urine <1 /hpf (0-4); Urobilinogen,Urine <2.0 mg/dL (<2.0); WBC,Urine 3 /hpf (0-5)
--- NOTE | 2022-03-21 09:27 | ED ---
General Adult HPI - General Chief complaint: Abdominal Pain Stated complaint: Abd Pain/Diarrhea Time Seen by Provider: 03/21/22 07:41 Source: patient, RN notes reviewed, old records reviewed Mode of arrival: ambulatory Limitations: no limitations - History of Present Illness Initial comments: Patient is a 50-year-old female with past medical history remarkable for diverticulosis, hysterectomy, CADs/p stents, fibromyalgia who presents to emergency Department complaining of a four-day history of lower abdominal pain, nausea, vomiting, diarrhea. Versus the emesis is nonbilious and nonbloody. Endorses diarrhea is nonbloody. Denies any sick contacts. Denies any urinary complaints or history of kidney stones. Denies any chest pain, shortness yves th, upper abdominal pain. Denies any headaches. Was vaccinated for Covid. Denies any fevers, chills, cough. Has no other acute complaints at this time. - Related Data Home Medications Medication Instructions Recorded Confirmed DULoxetine HCL [Cymbalta] 60 mg PO DAILY 10/26/19 10/15/21 ALPRAZolam [Xanax] 1 mg PO HS 10/15/21 10/15/21 ARIPiprazole [Abilify] 5 mg PO DAILY 10/15/21 10/15/21 Aspirin EC [Ecotrin Low Dose] 81 mg PO DAILY 10/15/21 10/15/21 Metoprolol Tartrate [Lopressor] 25 mg PO HS 10/15/21 10/15/21 Metoprolol Tartrate [Lopressor] 50 mg PO QAM 10/15/21 10/15/21 lisinopriL [Zestril] 10 mg PO DAILY 10/15/21 10/15/21 Previous Rx's Medication Instructions Recorded Amoxicillin/Potassium Clav 1 tab PO Q12HR #20 tab 10/15/21 [Augmentin 875-125 Tablet] HYDROcodone/APAP 5-325MG [[place] 5] 1 each PO Q6HR PRN 3 Days #12 tab 03/21/22 Allergies Allergy/AdvReac Type Severity Reaction Status Date / Time atorvastatin [From Lipitor] AdvReac "LIVER Verified 03/21/22 07:36 FAILURE" Review of Systems ROS Statement: Those systems with pertinent positive or pertinent negative responses have been documented in the HPI. Review of Systems: CONST: Denies fever EYES: Denies blurry vision ENT: Denies nasal congestion C/V: Denies Chest pain RESP: Denies shortness of breath GI: Endorses abdominal pain : Denies dysuria SKIN: Denies rash. MSK: Denies joint pain. NEURO: Denies headache ROS Other: All systems not noted in ROS Statement are negative. Past Medical History Past Medical History: Coronary Artery Disease (CAD), Fibromyalgia, GERD/Reflux, Hyperlipidemia, Myocardial Infarction ([place]) Additional Past Medical History / Comment(s): 10/26/19 [place], gallbladder polyp, cluster headaches, IBS, diverticular disease, bronchitis, past R patella and r hand fracture. Last Myocardial Infarction Date:: 10/26/19 History of Any Multi-Drug Resistant Organisms: None Reported Past Surgical History: Section, Heart Catheterization With Stent, Hysterectomy Additional Past Surgical History / Comment(s): Colonoscopies/EGDs, stents X2 Past Anesthesia/Blood Transfusion Reactions: No Reported Reaction Date of Last Stent Placement:: 10/26/19 Past Psychological History: Anxiety, Depression Smoking Status: Current some day smoker Past Alcohol Use History: Daily, Occasional Past Drug Use History: Marijuana - Past Family History Mother Family Medical History: No Reported History Additional Family Medical History / Comment(s): Mother is healthy and is 81 yrs old. Father Family Medical History: No Reported History Additional Family Medical History / Comment(s): Father is 74 and healthy General Exam - General Exam Comments Initial Comments: General: Appears in mild discomfort secondary to abdominal pain. HEAD: Normal with no signs of head trauma. EYES: PERRLA, EOMI, conjunctiva normal, no discharge. ENT: Hearing grossly intact, normal oropharynx. RESPIRATORY: Clear breath sounds bilaterally. No wheezes, rales, or rhonchi. C/V: Regular rate and rhythm. S1 and S2 auscultated, no edema, peripheral pulses 2+ and intact throughout ABD: Abdomen is soft, nondistended. Mildly tender to palpation in the left lower quadrant. Minimal tenderness palpation suprapubically. No flank tenderness to palpation. No guarding. No peritoneal signs. No rebound tenderness. No CVA tenderness to percussion. EXT: Normal range of motion, no obvious deformity SKIN: No rashes or lesions observed on exposed skin. NEURO: Alert and oriented 4. Limitations: no limitations Course Vital Signs 03/21/22 03/21/22 03/21/22 07:37 08:08 09:50 Temperature 97.6 F Pulse Rate 84 75 56 L Respiratory 16 20 18 Rate Blood Pressure 148/92 155/99 186/104 O2 Sat by Pulse 97 96 97 Oximetry 03/21/22 10:38 Temperature Pulse Rate 64 Respiratory 18 Rate Blood Pressure 153/87 O2 Sat by Pulse 98 Oximetry Medical Decision Making - Medical Decision Making Based on the patient's presentation and physical exam, I'm concerned for acute intra-abdominal process for current symptoms. Cannot rule out infectious etiology either. We will obtain Covid swab as well as abdominal labs and a CT abdomen and pelvis to evaluate for diverticulitis. She was in agreement this plan. She'll be symptomatically treated with a GI cocktail, analgesia, multiple fluid boluses. Laboratory studies were remarkable for a mild lactic acidosis of 2.3. Remainder of the labs are unremarkable. CT abdomen and pelvis revealed possible mild acute colitis with diverticulosis and no signs of diverticulitis.Covid swab was negative. Urinalysis is unremarkable. On reevaluation, patient is feeling improved. I discussed results with her. Patient's PCP did already prescribed her Augmentin. I recommended she follow-up with her PCP and continue that medication if needed. She understands that she does not have acute diverticulitis at this time. Patient's lactic acid was minimally elevated while she was here to 2.3, which is treated with 2 L fluid bolus. She is tolerating oral intake at this time. I will provide the patient with a prescription for [place]. I instructed the rosanna ent to follow up with their PCP in the next 3 days. I explained that the patient should return to the emergency department if they experience any worsening symptoms. Strict return precautions were discussed with the patient. The patient expressed understanding of these instructions. I answered all questions that the patient had. The patient was discharged home in good condition with their prescriptions and follow up information. - Lab Data Result diagrams: 03/21/22 07:53 03/21/22 07:53 Lab Results 03/21/22 03/21/22 03/21/22 Range/Units 07:53 07:53 07:53 WBC 8.8 (3.8-10.6) k/uL RBC 4.61 (3.80-5.40) m/uL Hgb 14.9 (11.4-16.0) gm/dL Hct 47.6 H (34.0-46.0) % MCV 103.2 H (80.0-100.0) fL MCH 32.2 (25.0-35.0) pg MCHC 31.2 (31.0-37.0) g/dL RDW 11.6 (11.5-15.5) % Plt Count 349 (150-450) k/uL MPV 6.6 Neutrophils % 68 % Lymphocytes % 21 % Monocytes % 5 % Eosinophils % 4 % Basophils % 1 % Neutrophils # 5.9 (1.3-7.7) k/uL Lymphocytes # 1.8 (1.0-4.8) k/uL Monocytes # 0.5 (0-1.0) k/uL Eosinophils # 0.3 (0-0.7) k/uL Basophils # 0.1 (0-0.2) k/uL PT 9.6 (9.0-12.0) sec INR 0.9 (<1.2) APTT 24.1 (22.0-30.0) sec Sodium 138 (137-145) mmol/L Potassium 4.7 (3.5-5.1) mmol/L Chloride 103 (98-107) mmol/L Carbon Dioxide 26 (22-30) mmol/L Anion Gap 9 mmol/L BUN 18 H (7-17) mg/dL Creatinine 0.82 (0.52-1.04) mg/dL Est GFR (CKD-EPI)AfAm >90 (>60 ml/min/1.73 sqM) Est GFR (CKD-EPI)NonAf 82 (>60 ml/min/1.73 sqM) Glucose 123 H (74-99) mg/dL Lactic Ac Sepsis Rflx Plasma Lactic Acid Kenn (0.7-2.0) mmol/L Calcium 8.9 (8.4-10.2) mg/dL Total Bilirubin 0.5 (0.2-1.3) mg/dL AST 25 (14-36) U/L ALT 27 (4-34) U/L Alkaline Phosphatase 83 (38-126) U/L Total Protein 6.9 (6.3-8.2) g/dL Albumin 4.1 (3.5-5.0) g/dL Amylase 49 (30-110) U/L Lipase 144 (23-300) U/L Urine Color Urine Appearance (Clear) Urine pH (5.0-8.0) Ur Specific [place] (1.001-1.035) Urine Protein (Negative) Urine Glucose (UA) (Negative) Urine Ketones (Negative) Urine Blood (Negative) Urine Nitrite (Negative) Urine Bilirubin (Negative) Urine Urobilinogen (<2.0) mg/dL Ur Leukocyte Esterase (Negative) Urine RBC (0-5) /hpf Urine WBC (0-5) /hpf Ur Squamous Epith Cells (0-4) /hpf Urine Mucus (None) /hpf Urine HCG, Qual (Not Detectd) Coronavirus (PCR) (Not Detectd) 03/21/22 03/21/22 03/21/22 Range/Units 07:53 08:48 09:04 WBC (3.8-10.6) k/uL RBC (3.80-5.40) m/uL Hgb (11.4-16.0) gm/dL Hct (34.0-46.0) % MCV (80.0-100.0) fL MCH (25.0-35.0) pg MCHC (31.0-37.0) g/dL RDW (11.5-15.5) % Plt Count (150-450) k/uL MPV Neutrophils % % Lymphocytes % % Monocytes % % Eosinophils % % Basophils % % Neutrophils # (1.3-7.7) k/uL Lymphocytes # (1.0-4.8) k/uL Monocytes # (0-1.0) k/uL Eosinophils # (0-0.7) k/uL Basophils # (0-0.2) k/uL PT (9.0-12.0) sec INR (<1.2) APTT (22.0-30.0) sec Sodium (137-145) mmol/L Potassium (3.5-5.1) mmol/L Chloride (98-107) mmol/L Carbon Dioxide (22-30) mmol/L Anion Gap mmol/L BUN (7-17) mg/dL Creatinine (0.52-1.04) mg/dL Est GFR (CKD-EPI)AfAm (>60 ml/min/1.73 sqM) Est GFR (CKD-EPI)NonAf (>60 ml/min/1.73 sqM) Glucose (74-99) mg/dL Lactic Ac Sepsis Rflx Y Plasma Lactic Acid Kenn 2.3 H* (0.7-2.0) mmol/L Calcium (8.4-10.2) mg/dL Total Bilirubin (0.2-1.3) mg/dL AST (14-36) U/L ALT (4-34) U/L Alkaline Phosphatase (38-126) U/L Total Protein (6.3-8.2) g/dL Albumin (3.5-5.0) g/dL Amylase (30-110) U/L Lipase (23-300) U/L Urine Color Light Yellow Urine Appearance Clear (Clear) Urine pH 5.5 (5.0-8.0) Ur Specific [place] 1.026 (1.001-1.035) Urine Protein Negative (Negative) Urine Glucose (UA) Negative (Negative) Urine Ketones Negative (Negative) Urine Blood Trace H (Negative) Urine Nitrite Negative (Negative) Urine Bilirubin Negative (Negative) Urine Urobilinogen <2.0 (<2.0) mg/dL Ur Leukocyte Esterase Small H (Negative) Urine RBC 1 (0-5) /hpf Urine WBC 3 (0-5) /hpf Ur Squamous Epith Cells <1 (0-4) /hpf Urine Mucus Rare H (None) /hpf Urine HCG, Qual (Not Detectd) Coronavirus (PCR) (Not Detectd) 03/21/22 03/21/22 Range/Units 09:04 09:04 WBC (3.8-10.6) k/uL RBC (3.80-5.40) m/uL Hgb (11.4-16.0) gm/dL Hct (34.0-46.0) % MCV (80.0-100.0) fL MCH (25.0-35.0) pg MCHC (31.0-37.0) g/dL RDW (11.5-15.5) % Plt Count (150-450) k/uL MPV Neutrophils % % Lymphocytes % % Monocytes % % Eosinophils % % Basophils % % Neutrophils # (1.3-7.7) k/uL Lymphocytes # (1.0-4.8) k/uL Monocytes # (0-1.0) k/uL Eosinophils # (0-0.7) k/uL Basophils # (0-0.2) k/uL PT (9.0-12.0) sec INR (<1.2) APTT (22.0-30.0) sec Sodium (137-145) mmol/L Potassium (3.5-5.1) mmol/L Chloride (98-107) mmol/L Carbon Dioxide (22-30) mmol/L Anion Gap mmol/L BUN (7-17) mg/dL Creatinine (0.52-1.04) mg/dL Est GFR (CKD-EPI)AfAm (>60 ml/min/1.73 sqM) Est GFR (CKD-EPI)NonAf (>60 ml/min/1.73 sqM) Glucose (74-99) mg/dL Lactic Ac Sepsis Rflx Plasma Lactic Acid Kenn (0.7-2.0) mmol/L Calcium (8.4-10.2) mg/dL Total Bilirubin (0.2-1.3) mg/dL AST (14-36) U/L ALT (4-34) U/L Alkaline Phosphatase (38-126) U/L Total Protein (6.3-8.2) g/dL Albumin (3.5-5.0) g/dL Amylase (30-110) U/L Lipase (23-300) U/L Urine Color Urine Appearance (Clear) Urine pH (5.0-8.0) Ur Specific [place] (1.001-1.035) Urine Protein (Negative) Urine Glucose (UA) (Negative) Urine Ketones (Negative) Urine Blood (Negative) Urine Nitrite (Negative) Urine Bilirubin (Negative) Urine Urobilinogen (<2.0) mg/dL Ur Leukocyte Esterase (Negative) Urine RBC (0-5) /hpf Urine WBC (0-5) /hpf Ur Squamous Epith Cells (0-4) /hpf Urine Mucus (None) /hpf Urine HCG, Qual Not Detected (Not Detectd) Coronavirus (PCR) Not Detected (Not Detectd) Disposition Clinical Impression: Colitis, Dehydration Disposition: HOME SELF-CARE Condition: Good Instructions (If sedation given, give patient instructions): Colitis (ED) Prescriptions: HYDROcodone/APAP 5-325MG [[place] 5] 1 each PO Q6HR PRN 3 Days #12 tab PRN Reason: Pain Is patient prescribed a controlled substance at d/c from ED?: Yes When asked, does pt state using other controlled substances?: No If prescribed controlled substance>3 days was MAPS reviewed?: Prescribed <3 Days If opioid is for acute pain is fill amount 7 days or less?: Yes If Rx opioid, was Start Talking consent form obtained?: Yes Referrals: Juan Keller MD [Primary Care Provider] - 1-2 days Time of Disposition: 10:20
[2022-03-21] MEDS ORDERED: MORPHINE SULFATE 4 MG/ML SYRINGE IVP STA (09:30)
[2022-03-21 09:51] VITALS: RESP 18
[2022-03-21 10:41] VITALS: BP 153/87; PULSE 64
== END 2022-03-21 10:58 | disposition home or self-care (01) ==
LOC: EC 07:35
DX: E86.0 Dehydration (principal); K52.9 Noninfective gastroenteritis and colitis, unspecified; I25.2 Old myocardial infarction; Z20.822 Contact with and (suspected) exposure to COVID-19; F17.200 Nicotine dependence, unspecified, uncomplicated; Z88.8 Allergy status to other drugs, medicaments and biological substances
CPT/HCPCS: 36415; 80053; 82150; 83605; 83690; 85025; 85610; 85730; 81001; 81025; 87635; 74177; 99284; 96374; 96375; 96376; 96361; J2270; J1200; J2405; Q9967

== ENCOUNTER 2022-03-25 07:46 | Emergency (ER) | payer BC ==
[2022-03-25 07:52] VITALS: RESP 18
[2022-03-25] MEDS ORDERED: HYDROmorphone 0.5 MG/0.5 ML SYRINGE IVP STA (08:17)
[2022-03-25] MEDS ORDERED: DIPHENOX-ATROP 2.5-0.025 MG 1 EACH TAB PO STA ×2 (08:17→08:50)
[2022-03-25] MEDS ORDERED: ONDANSETRON 4 MG/2 ML VIAL IVP STA ×2 (08:17→10:13)
[2022-03-25] MEDS ORDERED: SODIUM CHLORIDE 0.9% 1,000 ML IV STA (08:17)
--- NOTE | 2022-03-25 08:27 | ED ---
General Adult HPI - General Chief complaint: Abdominal Pain Stated complaint: Abd cramping,blood in stool Time Seen by Provider: 03/25/22 07:50 Source: patient, RN notes reviewed, old records reviewed Mode of arrival: ambulatory Limitations: no limitations - History of Present Illness Initial comments: This a 51-year-old female presents emergency Department stating she's had abdominal pain and diarrhea for a week. Patient states she also started with some nausea and vomiting the vomiting is subsided but she still remains nauseated. Patient states as of today she started having bright red blood with her diarrhea. Patient states the pain is in the left lower quadrant. Patient states she was started on Augmentin a few days ago by her family practice doctor. Patient denies any fever chills. Patient denies any chest pain or difficulty breathing. - Related Data Home Medications Medication Instructions Recorded Confirmed DULoxetine HCL [Cymbalta] 60 mg PO DAILY 10/26/19 10/15/21 ALPRAZolam [Xanax] 1 mg PO HS 10/15/21 10/15/21 ARIPiprazole [Abilify] 5 mg PO DAILY 10/15/21 10/15/21 Aspirin EC [Ecotrin Low Dose] 81 mg PO DAILY 10/15/21 10/15/21 Metoprolol Tartrate [Lopressor] 25 mg PO HS 10/15/21 10/15/21 Metoprolol Tartrate [Lopressor] 50 mg PO QAM 10/15/21 10/15/21 lisinopriL [Zestril] 10 mg PO DAILY 10/15/21 10/15/21 Previous Rx's Medication Instructions Recorded Amoxicillin/Potassium Clav 1 tab PO Q12HR #20 tab 10/15/21 [Augmentin 875-125 Tablet] HYDROcodone/APAP 5-325MG [[place] 5] 1 each PO Q6HR PRN 3 Days #12 tab 03/21/22 Allergies Allergy/AdvReac Type Severity Reaction Status Date / Time atorvastatin [From Lipitor] AdvReac "LIVER Verified 03/25/22 07:52 FAILURE" Review of Systems ROS Statement: Those systems with pertinent positive or pertinent negative responses have been documented in the HPI. ROS Other: All systems not noted in ROS Statement are negative. Past Medical History Past Medical History: Coronary Artery Disease (CAD), Fibromyalgia, GERD/Reflux, Hyperlipidemia, Myocardial Infarction ([place]) Additional Past Medical History / Comment(s): 10/26/19 [place], gallbladder polyp, cluster headaches, IBS, diverticular disease, bronchitis, past R patella and r hand fracture. Last Myocardial Infarction Date:: 10/26/19 History of Any Multi-Drug Resistant Organisms: None Reported Past Surgical History: Section, Heart Catheterization With Stent, Hysterectomy Additional Past Surgical History / Comment(s): Colonoscopies/EGDs, stents X2 Past Anesthesia/Blood Transfusion Reactions: No Reported Reaction Date of Last Stent Placement:: 10/26/19 Past Psychological History: Anxiety, Depression Smoking Status: Current some day smoker Past Alcohol Use History: Daily, Occasional Past Drug Use History: Marijuana - Past Family History Mother Family Medical History: No Reported History Additional Family Medical History / Comment(s): Mother is healthy and is 81 yrs old. Father Family Medical History: No Reported History Additional Family Medical History / Comment(s): Father is 74 and healthy General Exam - General Exam Comments Initial Comments: GENERAL: Patient is well-developed and well-nourished. Patient is nontoxic and well- hydrated and is in mild distress. ENT: Neck is soft and supple. No significant lymphadenopathy is noted. Oropharynx is clear. Moist mucous membranes. Neck has full range of motion without eliciting any pain. EYES: The sclera were anicteric and conjunctiva were pink and moist. Extraocular movements were intact and pupils were equal round and reactive to light. Eyelids were unremarkable. PULMONARY: Unlabored respirations. Good breath sounds bilaterally. No audible rales rhonchi or wheezing was noted. CARDIOVASCULAR: There is a regular rate and rhythm without any murmurs gallops or rubs. ABDOMEN: Patient has mild tenderness in left lower quadrant. No rebound SKIN: Skin is clear with no lesions or rashes and otherwise unremarkable. NEUROLOGIC: Patient is alert and oriented x3. Cranial nerves II through XII are grossly intact. Motor and sensory are also intact. Normal speech, volume and content. Symmetrical smile. MUSCULOSKELETAL: Normal extremities with adequate strength and full range of motion. LYMPHATICS: No significant lymphadenopathy is noted PSYCHIATRIC: Normal psychiatric evaluation. Limitations: no limitations Course Vital Signs 03/25/22 03/25/22 03/25/22 07:47 09:01 10:00 Temperature 97.6 F Pulse Rate 70 74 56 L Respiratory 18 18 18 Rate Blood Pressure 164/112 129/84 133/83 O2 Sat by Pulse 99 94 L 93 L Oximetry Medical Decision Making - Medical Decision Making Patient's CAT scan showed no acute abnormality. Patient is on Augmentin. Patient had no vomiting or diarrhea in the emergency department. Patient did receive Lomotil and Zofran and Dilaudid for pain. - Lab Data Result diagrams: 03/25/22 08:22 03/25/22 08:22 Lab Results 03/25/22 03/25/22 03/25/22 Range/Units 08:22 08:22 08:22 WBC 7.1 (3.8-10.6) k/uL RBC 4.61 (3.80-5.40) m/uL Hgb 15.2 (11.4-16.0) gm/dL Hct 46.8 H (34.0-46.0) % MCV 101.6 H (80.0-100.0) fL MCH 32.9 (25.0-35.0) pg MCHC 32.4 (31.0-37.0) g/dL RDW 11.8 (11.5-15.5) % Plt Count 336 (150-450) k/uL MPV 6.7 Neutrophils % 65 % Lymphocytes % 22 % Monocytes % 7 % Eosinophils % 3 % Basophils % 1 % Neutrophils # 4.6 (1.3-7.7) k/uL Lymphocytes # 1.5 (1.0-4.8) k/uL Monocytes # 0.5 (0-1.0) k/uL Eosinophils # 0.2 (0-0.7) k/uL Basophils # 0.1 (0-0.2) k/uL Sodium 138 (137-145) mmol/L Potassium 5.2 H (3.5-5.1) mmol/L Chloride 103 (98-107) mmol/L Carbon Dioxide 25 (22-30) mmol/L Anion Gap 10 mmol/L BUN 21 H (7-17) mg/dL Creatinine 0.86 (0.52-1.04) mg/dL Est GFR (CKD-EPI)AfAm 90 (>60 ml/min/1.73 sqM) Est GFR (CKD-EPI)NonAf 78 (>60 ml/min/1.73 sqM) Glucose 127 H (74-99) mg/dL Plasma Lactic Acid Kenn (0.7-2.0) mmol/L Calcium 9.0 (8.4-10.2) mg/dL Total Bilirubin 0.6 (0.2-1.3) mg/dL AST 31 (14-36) U/L ALT 30 (4-34) U/L Alkaline Phosphatase 90 (38-126) U/L Total Protein 7.4 (6.3-8.2) g/dL Albumin 4.3 (3.5-5.0) g/dL Amylase 71 (30-110) U/L Lipase 326 H (23-300) U/L Urine Color Yellow Urine Appearance Clear (Clear) Urine pH 5.5 (5.0-8.0) Ur Specific [place] 1.017 (1.001-1.035) Urine Protein Negative (Negative) Urine Glucose (UA) Negative (Negative) Urine Ketones Negative (Negative) Urine Blood Small H (Negative) Urine Nitrite Negative (Negative) Urine Bilirubin Negative (Negative) Urine Urobilinogen <2.0 (<2.0) mg/dL Ur Leukocyte Esterase Negative (Negative) Urine RBC 2 (0-5) /hpf Urine WBC 1 (0-5) /hpf Ur Squamous Epith Cells 2 (0-4) /hpf Urine Mucus Rare H (None) /hpf 03/25/22 Range/Units 08:22 WBC (3.8-10.6) k/uL RBC (3.80-5.40) m/uL Hgb (11.4-16.0) gm/dL Hct (34.0-46.0) % MCV (80.0-100.0) fL MCH (25.0-35.0) pg MCHC (31.0-37.0) g/dL RDW (11.5-15.5) % Plt Count (150-450) k/uL MPV Neutrophils % % Lymphocytes % % Monocytes % % Eosinophils % % Basophils % % Neutrophils # (1.3-7.7) k/uL Lymphocytes # (1.0-4.8) k/uL Monocytes # (0-1.0) k/uL Eosinophils # (0-0.7) k/uL Basophils # (0-0.2) k/uL Sodium (137-145) mmol/L Potassium (3.5-5.1) mmol/L Chloride (98-107) mmol/L Carbon Dioxide (22-30) mmol/L Anion Gap mmol/L BUN (7-17) mg/dL Creatinine (0.52-1.04) mg/dL Est GFR (CKD-EPI)AfAm (>60 ml/min/1.73 sqM) Est GFR (CKD-EPI)NonAf (>60 ml/min/1.73 sqM) Glucose (74-99) mg/dL Plasma Lactic Acid Kenn 1.3 (0.7-2.0) mmol/L Calcium (8.4-10.2) mg/dL Total Bilirubin (0.2-1.3) mg/dL AST (14-36) U/L ALT (4-34) U/L Alkaline Phosphatase (38-126) U/L Total Protein (6.3-8.2) g/dL Albumin (3.5-5.0) g/dL Amylase (30-110) U/L Lipase (23-300) U/L Urine Color Urine Appearance (Clear) Urine pH (5.0-8.0) Ur Specific [place] (1.001-1.035) Urine Protein (Negative) Urine Glucose (UA) (Negative) Urine Ketones (Negative) Urine Blood (Negative) Urine Nitrite (Negative) Urine Bilirubin (Negative) Urine Urobilinogen (<2.0) mg/dL Ur Leukocyte Esterase (Negative) Urine RBC (0-5) /hpf Urine WBC (0-5) /hpf Ur Squamous Epith Cells (0-4) /hpf Urine Mucus (None) /hpf Disposition Clinical Impression: Abdominal pain, Acute diarrhea Disposition: HOME SELF-CARE Instructions (If sedation given, give patient instructions): Abdominal Pain (ED) Is patient prescribed a controlled substance at d/c from ED?: No Referrals: Juan Keller MD [Primary Care Provider] - 1-2 days Time of Disposition: 10:20
[2022-03-25 08:40] LABS: Basophils # (A) 0.1 k/uL (0-0.2); Basophils % (A) 1 %; Eosinophils # (A) 0.2 k/uL (0-0.7); Eosinophils % (A) 3 %; HCT 46.8 % (34.0-46.0); HGB 15.2 gm/dL (11.4-16.0); Lymphocytes # (A) 1.5 k/uL (1.0-4.8); Lymphocytes % (A) 22 %; MCH 32.9 pg (25.0-35.0); MCHC 32.4 g/dL (31.0-37.0); MCV 101.6 fL (80.0-100.0); Mean Platelet Volume 6.7; Monocytes # (A) 0.5 k/uL (0-1.0); Monocytes % (A) 7 %; Neutrophils # (A) 4.6 k/uL (1.3-7.7); Neutrophils % (A) 65 %; Platelet Count 336 k/uL (150-450); RBC 4.61 m/uL (3.80-5.40); RDW 11.8 % (11.5-15.5); WBC 7.1 k/uL (3.8-10.6)
[2022-03-25 08:41] LABS: Appearance,Urine Clear (Clear); Bilirubin,Urine Negative (Negative); Blood,Urine Small (Negative); Color,Urine Yellow; Glucose,Urine (UA) Negative (Negative); Ketones,Urine Negative (Negative); Leukocyte Esterase,Urine Negative (Negative); Mucus,Urine Rare /hpf; Nitrite,Urine Negative (Negative); PH, Urine 5.5 (5.0-8.0); Protein,Urine Negative (Negative); RBC,Urine 2 /hpf (0-5); Specific Gravity,Urine 1.017 (1.001-1.035); Squamous Epithelial Cell,Urine 2 /hpf (0-4); Urobilinogen,Urine <2.0 mg/dL (<2.0); WBC,Urine 1 /hpf (0-5)
[2022-03-25 08:54] LABS: Albumin 4.3 g/dL (3.5-5.0); Potassium 5.2 mmol/L (3.5-5.1); Total Bilirubin 0.6 mg/dL (0.2-1.3); Total Protein 7.4 g/dL (6.3-8.2)
--- NOTE | 2022-03-25 08:55 | CT ---
EXAMINATION TYPE: CT abdomen pelvis w con DATE OF EXAM: 03/25/2022 COMPARISON: 03/21/2022 HISTORY: 51-year-old female cramping, blood in stool TECHNIQUE: Contiguous axial scanning of the abdomen and pelvis following administration of 100 ml Iso dilip k300 IV contrast. Delayed images through the kidneys and coronal/sagittal reconstructions perfor [facility]. CT DLP: 1284.4 mGycm Automated exposure control for dose reduction was used. FINDINGS: Heart upper limits of normal in size without pericardial effusion. RCA coronary calcificati ons are noted. Lung bases clear without pleural effusion. Liver enlarged at 20.6 cm. Suspect underlying fatty infiltration. Portal venous system is patent. No biliary ductal dilatation. Gallbladder, adrenal glands, kidneys with hilar splenule, and pancreas within normal limits. Mild to moderate focal apical scarring calcifications distal abdominal aorta prior to the bifurcation . No aneurysm. No dilated small bowel, free fluid, or free air. No mesenteric or retroperitoneal lymphadenopathy. Normal appendix. Mild stool burden. Mild left-sided colonic diverticulosis, greatest in the sigmoid c olon. Mild circumferential wall thickening mid sigmoid colon, axial image 69 is noted. No significant pericolonic inflammatory fat stranding. Numerous pelvic phleboliths. Uterus surgically absent. Ovaries not well delineated from adjacent andrew l loops. Bladder nondistended. No abnormal fluid collection the pelvis or pelvic lymphadenopathy. Bones: Mild degenerative spurring at the hips. Facet arthropathy lower lumbar spine. IMPRESSION: 1. LEFT-SIDED COLONIC DIVERTICULOSIS, GREATEST IN THE SIGMOID COLON. THERE IS MILD CIRCUMFERENTIAL WA LL THICKENING ALONG THE MID SIGMOID COLON THAT MAY BE DUE TO NONDISTENTION OR MILD ACUTE DIVERTICULIT IS. NO SIGNIFICANT SURROUNDING INFLAMMATORY CHANGES. CLINICALLY CORRELATE. 2. HEPATOMEGALY AT 20.6 CM. SUSPECT UNDERLYING HEPATIC STEATOSIS.
[2022-03-25] MEDS ORDERED: KETOROLAC 15 MG/ML 1 ML VIAL IVP STA (10:11)
[2022-03-25] MEDS ORDERED: ONDANSETRON 4 MG ODT STARTER PACK 2 TAB BTL PO STA (10:34)
[2022-03-25] MEDS ORDERED: DIPHENOX-ATROP STARTER PACK 8 TAB BTL PO STA (10:34)
[2022-03-25 10:55] VITALS: BP 135/81; PULSE 61; TEMP 98.9
== END 2022-03-25 10:54 | disposition home or self-care (01) ==
LOC: EC 07:46
DX: R19.7 Diarrhea, unspecified (principal); I25.10 Atherosclerotic heart disease of native coronary artery without angina pectoris; E78.5 Hyperlipidemia, unspecified; I25.2 Old myocardial infarction; Z88.8 Allergy status to other drugs, medicaments and biological substances
CPT/HCPCS: 36415; 80053; 82150; 83605; 83690; 85025; 81001; 74177; 99284; 96374; 96375; 96376; J2405; J1885; S0119; J1170; Q9967

== ENCOUNTER 2022-05-21 08:24 | Day surgery (SDC) | payer BC ==
[2022-05-16 09:46] VITALS: BMI 38.4
[~2022-05-21 08:24] MED LIST: LACTATED RINGERS 1,000 ML IV SCH; LIDOCAINE 1% (10MG/ML) FOR IV START INTRADERMA PRN
[2022-05-21 08:50] VITALS: TEMP 98.3
[2022-05-21] MEDS ORDERED: PROPOFOL 10 MG/ML 20 ML VIAL IV ONE (09:27)
--- NOTE | 2022-05-21 09:30 | P.GSHP ---
History of Present Illness H&P Date: 05/21/22 Chief Complaint: Rectal bleeding, diverticulitis 51-year-old female here today for colonoscopy. Patient with history of previous diverticulitis. Recent was in the ER with diarrhea and rectal bleeding. Told she may have diverticulitis or colitis. Last colonoscopy more than 5 years ago. Family history of diverticulitis Past Medical History Past Medical History: Coronary Artery Disease (CAD), COPD, Fibromyalgia, GERD/Reflux, Hyperlipidemia, Hypertension, Myocardial Infarction (ME) Additional Past Medical History / Comment(s): migraines, IBS, diverticulitis/colitis, hx bronchitis, palpitations with anxiety attacks Last Myocardial Infarction Date:: 10/26/19 History of Any Multi-Drug Resistant Organisms: None Reported Past Surgical History: Section, Heart Catheterization With Stent, Hysterectomy Additional Past Surgical History / Comment(s): Colonoscopies/EGDs, cardiac stents X2, surgery for ectopic Past Anesthesia/Blood Transfusion Reactions: No Reported Reaction Date of Last Stent Placement:: 10/26/19 Smoking Status: Current every day smoker - Past Family History Mother Family Medical History: No Reported History Additional Family Medical History / Comment(s): . Father Family Medical History: No Reported History Additional Family Medical History / Comment(s): Father is 74 and healthy Medications and Allergies Home Medications Medication Instructions Recorded Confirmed Type DULoxetine HCL [Cymbalta] 60 mg PO DAILY 10/26/19 05/21/22 History ALPRAZolam [Xanax] 1 mg PO HS PRN 10/15/21 05/21/22 History ARIPiprazole [Abilify] 5 mg PO DAILY 10/15/21 05/21/22 History Aspirin EC [Ecotrin Low Dose] 81 mg PO DAILY 10/15/21 05/21/22 History Metoprolol Tartrate [Lopressor] 25 mg PO HS 10/15/21 05/21/22 History Metoprolol Tartrate [Lopressor] 50 mg PO QAM 10/15/21 05/21/22 History lisinopriL [Zestril] 10 mg PO DAILY 10/15/21 05/21/22 History Allergies Allergy/AdvReac Type Severity Reaction Status Date / Time Nynfqsa-SON-XfR Reductase Allergy liver Verified 05/21/22 08:43 Inhibitor failure atorvastatin [From Lipitor] AdvReac "LIVER Verified 05/21/22 08:43 FAILURE" Surgical - Exam Vital Signs Temp Pulse Resp BP Pulse Ox 98.3 F 67 18 148/86 96 05/21/22 08:49 05/21/22 08:49 05/21/22 08:49 05/21/22 08:49 05/21/22 08:49 Physical exam: General: Well-developed, well-nourished HEENT: Normocephalic, sclerae nonicteric Abdomen: Nontender, nondistended Extremities: No edema Neuro: Alert and oriented Assessment and Plan (1) Diverticulitis Narrative/Plan: 51-year-old female with diverticulitis and recent rectal bleeding. We'll proceed with colonoscopy at this time. Current Visit: Yes Status: Acute Code(s): K57.92 - DVTRCLI OF INTEST, PART UNSP, W/O PERF OR ABSCESS W/O BLEED SNOMED Code(s): 135467182
--- NOTE | 2022-05-21 09:47 | P.PCN ---
Date of Procedure: 05/21/22 Procedure(s) Performed: PREOPERATIVE DIAGNOSIS: Diverticulitis POSTOPERATIVE DIAGNOSIS: Left-sided diverticulosis PROCEDURE: Colonoscopy ANESTHESIA: MAC SURGEON: Balaji Menendez M.D. SPECIMENS: None ENDOSCOPIC PROCEDURE: The patient was placed on the endoscopy table in the left decubitus position. The Olympus colonoscope was inserted into the anus and passed under direct visualization to the base of the cecum. The appendiceal orifice was visualized. From that point the scope was slowly withdrawn in specting all surfaces carefully. There were no neoplastic inflammatory or polypoid lesions throughout the cecum, ascending, transverse, descending, sigmoid and rectum. There was left-sided diverticulosis noted. Digital rectal examination was normal. The patient was taken to the recovery room in stable condition per anesthesia guidelines. RECOMMENDATIONS: Resume diet. Follow-up in office if further episodes of diverticulitis occurred.
[2022-05-21 09:57] VITALS: RESP 16
[2022-05-21 10:08] VITALS: BP 134/87; PULSE 66
== END 2022-05-21 10:33 | disposition home or self-care (01) ==
LOC: ORWHC2ENDO 08:24
PROVIDERS: ATTEND Surgery
DX: K57.90 Diverticulosis of intestine, part unspecified, without perforation or abscess without bleeding (principal); Z87.19 Personal history of other diseases of the digestive system; I25.10 Atherosclerotic heart disease of native coronary artery without angina pectoris; J44.9 Chronic obstructive pulmonary disease, unspecified; M79.7 Fibromyalgia; K21.9 Gastro-esophageal reflux disease without esophagitis; E78.5 Hyperlipidemia, unspecified; I10 Essential (primary) hypertension; I25.2 Old myocardial infarction; Z95.5 Presence of coronary angioplasty implant and graft; G43.909 Migraine, unspecified, not intractable, without status migrainosus; F41.0 Panic disorder [episodic paroxysmal anxiety]; Z79.82 Long term (current) use of aspirin; Z79.899 Other long term (current) drug therapy; Z88.8 Allergy status to other drugs, medicaments and biological substances; G35 Multiple sclerosis; F17.210 Nicotine dependence, cigarettes, uncomplicated
CPT/HCPCS: 45378; J2704

== ENCOUNTER → 2023-04-30 | Day surgery (SDC) | payer BC ==
[~2023-04-30] MED LIST changes: +ADENOSINE 90 MG in SODIUM CHLORIDE 0.9% 60 ML IVP ONE; +ALPRAZolam 0.25 MG TAB PO PRN; +ALPRAZolam 0.5 MG TAB PO PRN; +ARIPiprazole 5 MG TAB PO SCH; +ASPIRIN 325 MG TAB PO STA; +ATROPINE SULFATE 0.1 MG/ML 10ML SYRINGE IV PRN; +DULoxetine HCL 60 MG CAPSULE.DR PO SCH; +HEPARIN SODIUM 1,000 UN/ML (10ML VL) ONE; +HEPARIN SODIUM,PORCINE 10,000 UNIT in SODIUM CHLORIDE 0.9% 1,000 ML IRRIGATION PRN; +HEPARIN SODIUM,PORCINE 2,500 UNIT in SODIUM CHLORIDE 0.9% 250 ML IRRIGATION PRN; +IOPAMIDOL-370 100ML BTL INJ ONE; +IV FLUID CONTINUATION 1,000 ML IV ONE; -LACTATED RINGERS 1,000 ML IV SCH; -LIDOCAINE 1% (10MG/ML) FOR IV START INTRADERMA PRN; +LIDOCAINE 1% INJ 10MG/ML (20 ML MDV) ONE; +LIDOCAINE 1% INJ 10MG/ML (5 ML VIAL-PF) SQ ONE; +MAG HYDROX/AL HYDROX/SIMETH 30 ML CUP PO PRN; +METOPROLOL TARTRATE 25 MG TAB PO SCH; +NITROGLYCERIN SL TABS 0.4 MG TAB SUBLINGUAL PRN; +NON FORMULARY DRUG (Aspirin Ec 81 MG Tablet) PO SCH; +PRASUGREL 10 MG TAB ONE; +PRASUGREL 10 MG TAB PO ONE; +PRASUGREL 10 MG TAB PO SCH; +RX INFO: IV CONTRAST WAS GIVEN 1 EACH MISC MISCELLANE PRN; +SODIUM CHLORIDE 0.9% 1,000 ML in EMPTY BAG 1 BAG IV SCH; +VERAPAMIL 2.5 MG/ML 2 ML AMP ONE; +VERAPAMIL SYRINGE (5 MG/10 ML) INTRAARTER ONE; +ZOLPIDEM 5 MG TAB PO PRN; +fentaNYL (PF) 50 MCG/ML 2 ML AMP IVP ONE; +fentaNYL (PF) 50 MCG/ML 2 ML AMP ONE; +hydroCHLOROthiazide 25 MG TAB PO SCH; +lisinopriL 10 MG TAB PO SCH
[2023-04-30 07:56] VITALS: RESP 16; TEMP 98.4
[2023-04-30] MEDS: MIDAZOLAM 2 MG/2 ML VIAL IVP ONE ×2 (09:15→09:18)
[2023-04-30] MEDS: HEPARIN SODIUM 1,000 UN/ML (10ML VL) IVP ONE ×4 (09:21→10:06)
--- NOTE | 2023-04-30 10:27 | P.PRCINT ---
Percutaneous Coronary Int. - Percutaneous Coronary Intervention Percutaneous Coronary Intervention: PROCEDURES PERFORMED: Left heart catheterization, bilateral coronary angiography, ultrasound guided arterial access, iFR RCA, iFR/FFR circumflex, PCI circumflex 4.0 x 12mm Xience QUAN, IVUS circumflex INDICATION: History of CAD, continued chest pain and shortness breath despite normal nuclear stress test CONSENT:I have discussed the risks, benefits and alternative therapies for the above-mentioned procedure and for both sedation/analgesia as well as necessary blood product administration, if indicated, as they pertain to this patient. The patient has indicated understanding and acceptance of the risks and proc edures discussed. PROCEDURE: After the risks, benefits and alternatives of the above mentioned procedure explained in detail with the patient, informed consent was obtained. Patient was taken to the catheterization lab and prepped and draped in usual fashion. Ultrasound guidance was used to assess for arterial access. 1% lidocaine was used to anesthetize the right radial artery. A 6-Khmer sheath was placed in the right radial artery using modified Seldinger technique and ultrasound guidance. Left coronary angiography was performed with a 5-Khmer JL 3.5 catheter and right coronary angiography was performed with a 5-Khmer JR5 catheter in various views. A 5-Khmer FR5 catheter was inserted into the left ventricle and pressure measurements were obtained. The decision was made to perform iFR of the RCA and circumflex. Heparin was given for ACT greater than 250. A 6-Khmer FR5 guide was used to engage the RCA. A 0.014 pressure wire was advanced into the proximal RCA and normalize. It was then advanced 1 cm distal to the RCA lesion. iFR was normal at 0.96. Next, the decision was made to perform iFR of the circumflex. A 6-Khmer CLS 3.0 guide was used to engage the left main. A 0.014 pressure wire was advanced into the left main and normalize. It was then advanced once entered distal to the circumflex lesion. Initial iFR was 0.91 however appeared more significant a nd droppped to 0.76 with flushing catheter. Given discrepancy, FFR was performed and was grossly abnormal at 0.61. Therefore the decision was made to perform PCI of the circumflex. A 3.5 x 8 mm noncompliant balloon was used to predilate the lesion. Next IVUS was performed which showed reference vessel 4.0 mm. Next a 4.0 x 12 mm Xience QUAN was deployed in the proximal circumflex. Repeat IVUS showed excellent stent apposition and no dissection. Final angiograms were performed. Preintervention there is 85% stenosis with RE 3 flow and postintervention there is 0% stenosis with RE 3 flow. The right radial sheath was removed and a TR band was placed with hemostasis achieved. The patient tolerated the procedure well. Patient was transported back to the post catheterization holding area in stable condition. Conscious Sedation: Patient was monitored under the direct supervision of myself for conscious sedation using Versed and fentanyl for a total duration of 53 minutes HEMODYNAMICS: Aorta: 42/78 RISHABH: 140/8, LVEDP 23 SELECTIVE CORONARY ARTERIOGRAPHY: LEFT MAIN: The left main is a large caliber vessel which bifurcates into the LAD and circumflex. There is no significant stenosis. LEFT ANTERIOR DESCENDING CORONARY ARTERY: LAD is a large caliber vessel which wraps around to the apex. There is a patent mid LAD stent just after a small caliber diagonal 1 branch without significant stenosis. Otherwise there are mild 10-20% stenoses. LEFT CIRCUMFLEX CORONARY ARTERY: Left circumflex is a large caliber vessel a proximal 85% stenosis and otherwise mild luminal irregularities. RIGHT CORONARY ARTERY: The right coronary artery is a small to moderate caliber vessel which gives off a PDA and PLV branch and is the dominant vessel. There is a proximal to mid RCA stents with 50% in-stent stenosis as well as more distal 40% stenosis just past the stent. FINAL IMPRESSION: 1. CAD as described above including 85% proximal circumflex, 50% RCA in-stent stenosis and 40% mid RCA stenosis. 2. iFR RCA normal, iFR/FFR circumflex abnormal 3. S/p PCI circumflex 4.0 x 12mm Xience QUAN 4. left sided filling pressures PLAN: 1. Aggressive risk factor modification per most recent ACC/AHA guidelines. 2. Continue dual antiplatelets with aspirin and Effient for minimum of 6 months. 3. Tobacco cessation 4. If continued dyspnea, consider increasing diuretics
[2023-04-30 13:41] VITALS: BP 106/60; PULSE 76
== END ==
LOC: CATHCVL 07:12
PROVIDERS: ATTEND Internal Medicine
DX: T82.855A Stenosis of coronary artery stent, initial encounter (principal); I25.10 Atherosclerotic heart disease of native coronary artery without angina pectoris; Y83.1 Surgical operation with implant of artificial internal device as the cause of abnormal reaction of the patient, or of later complication, without mention of misadventure at the time of the procedure; I10 Essential (primary) hypertension; E78.5 Hyperlipidemia, unspecified; F17.210 Nicotine dependence, cigarettes, uncomplicated; F10.20 Alcohol dependence, uncomplicated; J44.9 Chronic obstructive pulmonary disease, unspecified; Z79.51 Long term (current) use of inhaled steroids; Z79.82 Long term (current) use of aspirin; Z79.899 Other long term (current) drug therapy
CPT/HCPCS: 93458; 93571; 92978; 99152; 99153 ×2; C9600; C1769 ×3; C1887 ×2; C1894; C1753; C1874; C1725; J2250; J2001; J3010; J1644; J0153; Q9967

== ENCOUNTER → 2023-07-01 | Outpatient (CLI) | payer BC ==
--- NOTE | 2023-07-01 09:11 | CTL ---
EXAMINATION TYPE: CT Low Dose Lung DATE OF EXAM ORDERED: 07/01/2023 HISTORY: Z12.2 ENCNTR SCREEN FOR MALIGNANT NEOPLASM OF RESP. Current smoker, 42 pack year history. [place] ng cancer screening CT DLP: [address] CTDI: 2.4 mGy Automated exposure control for dose reduction was used. SCREENING VISIT: First screening visit COMPARISON: Chest radiograph 06/17/2020 TECHNIQUE: Low dose computed tomography scan was performed through the chest at 1 mm thick sections a nd reconstructed images in multiple planes at 1 mm and [address] DIAGNOSTIC QUALITY: Satisfactory FINDINGS: LUNG NODULES: Right upper lobe 8.4 mm pulmonary nodule (series 8, image 16). Subpleural right upper l obe 3.5 mm pulmonary nodule (series 8, image 16). Right midlung subpleural 2 mm pulmonary nodule (ser ies 8, image 26). Right upper lobe 2.6 mm pulmonary nodule (series 8, image 19). LUNGS: COPD: Severity: Minimal Fibrosis: Severity: None Lymph nodes: None Other findings: None RIGHT PLEURAL SPACE: Effusion: None Calcification: None Thickening: None Pneumothorax: None LEFT PLEURAL SPACE: Effusion: None Calcification: None Thickening: None Pneumothorax: None HEART: Heart Size: Normal Coronary Calcification: Moderate Pericardial Effusion: None OTHER FINDINGS: Upper abdomen: None Bony thorax: None Supraclavicular region: None Other: None IMPRESSION: Few pulmonary nodules with largest in the right upper lobe measuring 8.[address] LUNG RAD AND CT CHEST RECOMMENDATION: Lung-Rad 4A Suspicious: Follow-up 3 month LDCT or PET/CT may be used when there is a > 8 mm solid component. S Modifier (other clinically significant findings): None
== END | disposition home or self-care (01) ==
LOC: RADCTMAIN 08:03
PROVIDERS: ATTEND Internal Medicine
DX: Z12.2 Encounter for screening for malignant neoplasm of respiratory organs (principal); F17.210 Nicotine dependence, cigarettes, uncomplicated; R91.8 Other nonspecific abnormal finding of lung field
CPT/HCPCS: 71271

== ENCOUNTER → 2023-07-01 | Outpatient (CLI) | payer BC | LOC: CPPFTMAIN 08:06 | PROVIDERS: ATTEND Internal Medicine | DX: J44.9 Chronic obstructive pulmonary disease, unspecified (principal); Z79.51 Long term (current) use of inhaled steroids; Z87.891 Personal history of nicotine dependence; Z88.8 Allergy status to other drugs, medicaments and biological substances | CPT/HCPCS: 94060; 94726; 94729 ==

== ENCOUNTER → 2023-10-13 | Outpatient (CLI) | payer BC ==
--- NOTE | 2023-10-13 11:28 | XR ---
EXAMINATION TYPE: XR chest 2V DATE OF EXAM: 10/13/2023 10:59 AM CLINICAL INDICATION:Female, 53 years old with history of J44.9 COPD; COMPARISON: Chest radiographs from 06/17/2020 TECHNIQUE: XR chest 2V Frontal and lateral views of the chest. FINDINGS: Lungs/Pleura: There is no evidence of pleural effusion, focal consolidation, or pneumothorax. Pulmonary vascularity: Unremarkable. Heart/mediastinum: Cardiomediastinal silhouette is unremarkable. Musculoskeletal: No acute osseous pathology. Other findings: None IMPRESSION: No acute cardiopulmonary disease/process.
== END | disposition home or self-care (01) ==
LOC: RADXRMAIN 10:49
PROVIDERS: ATTEND Internal Medicine
DX: J44.9 Chronic obstructive pulmonary disease, unspecified (principal)
CPT/HCPCS: 71046

== ENCOUNTER → 2023-10-13 | Outpatient (CLI) | payer BC ==
[2023-10-13 11:31] LABS: Basophils # (A) 0.1 k/uL (0-0.2); Basophils % (A) 1 %; Eosinophils # (A) 0.2 k/uL (0-0.7); Eosinophils % (A) 2 %; HCT 48.1 % (34.0-46.0); Lymphocytes # (A) 2.5 k/uL (1.0-4.8); Lymphocytes % (A) 23 %; MCHC 33.3 g/dL (31.0-37.0); MCV 98.9 fL (80.0-100.0); Mean Platelet Volume 6.9; Monocytes # (A) 0.6 k/uL (0-1.0); Monocytes % (A) 5 %; Neutrophils # (A) 7.3 k/uL (1.3-7.7); Neutrophils % (A) 67 %; Platelet Count 414 k/uL (150-450); RBC 4.86 m/uL (3.80-5.40)
[2023-10-13 15:58] LABS: Erythrocyte Sedimentation Rate 11 mm/Hr (0-30)
[2023-10-13 22:39] LABS: Cyclic Citrull Pep IgG Unit <1.5 U/mL (<=3.9); Cyclic Citrullinated Pep IgG Negative
[2023-10-14 11:52] LABS: Chol/HDL Ratio 2.91 Ratio; Creatine Kinase 244 U/L (26-186); LDL Cholesterol,Calculated 72.9 mg/dL (0.0-131.0); Magnesium 2.6 mg/dL (1.5-2.4); Rheumatoid Factor, Qnt <15 IU/mL (0-15)
[2023-10-14 11:55] LABS: ALT 31 U/L (8-44); AST 29 U/L (13-35); Albumin 4.9 g/dL (3.8-4.9); Albumin/Globulin Ratio 1.81 Ratio (1.60-3.17); Alkaline Phosphatase 100 U/L (41-126); Blood Urea Nitrogen 20.2 mg/dL (9.0-27.0); Calcium 10.1 mg/dL (8.7-10.3); Carbon Dioxide 25.9 mmol/L (21.6-31.8); Chloride 96 mmol/L (96-109); Globulin 2.7 g/dL (1.6-3.3); Glucose 104 mg/dL (70-110); Potassium 4.3 mmol/L (3.5-5.5); Sodium 138 mmol/L (135-145); Total Bilirubin 0.4 mg/dL (0.3-1.2); Total Protein 7.6 g/dL (6.2-8.2)
== END | disposition home or self-care (01) ==
LOC: LABWHC1 09:39
PROVIDERS: ATTEND Internal Medicine
DX: I10 Essential (primary) hypertension (principal); M79.7 Fibromyalgia; E78.5 Hyperlipidemia, unspecified; E55.9 Vitamin D deficiency, unspecified; R73.9 Hyperglycemia, unspecified
CPT/HCPCS: 36415; 80053; 80061; 82306; 82550; 83036; 83735; 84443; 85025; 85652; 86038; 86200; 86225; 86235; 86431; 86665

== ENCOUNTER 2024-02-05 07:57 | Day surgery (SDC) | payer BC ==
[2024-02-05] MEDS: ALPRAZolam 0.5 MG TAB PO STA (08:21)
[2024-02-05 08:41] VITALS: BP 107/73; PULSE 68; RESP 12; TEMP 97.7
--- NOTE | 2024-02-05 10:06 | US ---
ULTRASOUND GUIDED CORE BIOPSY RIGHT PAROTID MASS: CLINICAL HISTORY: Right parotid mass FINDINGS: The procedure was explained to the patient. The risks, complications, benefits and alternatives were discussed and any questions were answered. Informed consent was obtained. Patient was placed supin e on the ultrasound table and prepped and draped in the usual sterile fashion. Utilizing a 18 gauge needle, 2 passes were made into the requested right parotid mass. Patient was stable throughout the procedure. Pathology is pending. All elements of maximal barrier technique were utilized. IMPRESSION: 1. Successful ultrasound guided core biopsy right parotid mass.
== END 2024-02-05 09:35 | disposition home or self-care (01) ==
LOC: RADPROMAIN 07:57
PROVIDERS: ATTEND Otolaryngology
DX: R22.1 Localized swelling, mass and lump, neck (principal)
CPT/HCPCS: 20206; 42400; 76942; 88305

== ENCOUNTER 2024-05-06 18:20 | Emergency (ER) | payer BC ==
--- NOTE | 2024-05-06 19:08 | ED ---
Abdominal Pain HPI - General Chief Complaint: Abdominal Pain Stated Complaint: allergic reaction,vomiting Time Seen by Provider: 05/06/24 18:54 Source: patient Mode of arrival: ambulatory Limitations: no limitations - History of Present Illness MD Complaint: abdominal pain -: hour(s) Location: RUQ, epigastric Radiation: back Migration to: no migration Severity: moderate Quality: aching Consistency: constant Improves With: nothing Worsens With: nothing Associated Symptoms: nausea, vomiting - Related Data Home Medications Medication Instructions Recorded Confirmed DULoxetine HCL [Cymbalta] 120 mg PO DAILY 10/26/19 02/05/24 ARIPiprazole [Abilify] 5 mg PO DAILY 10/15/21 02/05/24 Metoprolol Tartrate [Lopressor] 50 mg PO QAM 10/15/21 02/05/24 lisinopriL [Zestril] 10 mg PO DAILY 10/15/21 02/05/24 Albuterol Inhaler [Ventolin Hfa 1 - 2 puff INHALATION Q6H PRN 04/28/23 02/05/24 Inhaler] Nitroglycerin 0.4 mg SL Q5M PRN 04/28/23 02/05/24 hydroCHLOROthiazide 25 mg PO DAILY 04/28/23 02/05/24 Prasugrel [Effient] 10 mg PO DAILY 01/28/24 02/05/24 Previous Rx's Medication Instructions Recorded Cephalexin [Keflex] 500 mg PO Q6HR 1 Days #16 cap 05/06/24 Allergies Allergy/AdvReac Type Severity Reaction Status Date / Time [id number]-[id number] Reductase Allergy liver Verified 02/05/24 08:23 Inhibitor failure atorvastatin [From Lipitor] AdvReac "LIVER Verified 02/05/24 08:23 FAILURE" Review of Systems ROS Statement: Those systems with pertinent positive or pertinent negative responses have been documented in the HPI. ROS Other: All systems not noted in ROS Statement are negative. Constitutional: Denies: fever, chills, weakness Respiratory: Denies: cough, dyspnea Cardiovascular: Denies: chest pain, palpitations, edema Gastrointestinal: Reports: abdominal pain, nausea, vomiting. Denies: diarrhea, hematemesis, melena, hematochezia Genitourinary: Denies: urgency, dysuria, frequency Musculoskeletal: Denies: back pain Skin: Denies: rash Neurological: Denies: headache, weakness Past Medical History Past Medical History: Coronary Artery Disease (CAD), Chest Pain / Angina, Fibromyalgia, GERD/Reflux, Hyperlipidemia, Hypertension, Myocardial Infarction ([place]) Additional Past Medical History / Comment(s): 10/26/19 [place], gallbladder polyp, cluster headaches, IBS, diverticular disease, bronchitis, past R patella and r hand fracture. 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 see Dr Thurston's h & p Last Myocardial Infarction Date:: 10/26/19 History of Any Multi-Drug Resistant Organisms: None Reported Past Surgical History: Section, Heart Catheterization With Stent, Hysterectomy Additional Past Surgical History / Comment(s): Colonoscopies/EGDs, stents X2 Past Anesthesia/Blood Transfusion Reactions: No Reported Reaction Date of Last Stent Placement:: 10/26/19 Past Psychological History: Anxiety, Depression Smoking Status: Current some day smoker Past Alcohol Use History: Daily, Occasional Past Drug Use History: Marijuana - Past Family History Mother Family Medical History: No Reported History Additional Family Medical History / Comment(s): . Father Family Medical History: No Reported History Additional Family Medical History / Comment(s): Father is 74 and healthy General Exam Limitations: no limitations General appearance: alert, in no apparent distress Head exam: Present: atraumatic, normocephalic Eye exam: Present: normal appearance. Absent: scleral icterus, conjunctival injection ENT exam: Present: normal oropharynx Neck exam: Present: normal inspection Respiratory exam: Present: normal lung sounds bilaterally. Absent: respiratory distress, wheezes, rales, rhonchi, stridor, accessory muscle use Cardiovascular Exam: Present: regular rate, normal rhythm, normal heart sounds. Absent: systolic murmur, diastolic murmur, rubs, gallop GI/Abdominal exam: Present: soft, tenderness. Absent: distended, guarding, rebound, rigid, mass, pulsatile mass, hernia Extremities exam: Present: normal inspection, normal capillary refill. Absent: pedal edema, calf tenderness Back exam: Present: normal inspection. Absent: CVA tenderness (R), CVA tenderness (L) Neurological exam: Present: alert Skin exam: Present: warm, dry, intact, normal color. Absent: rash Course Vital Signs 05/06/24 05/06/24 18:48 21:17 Temperature 98 F Pulse Rate 120 H 88 Respiratory 28 H 18 Rate Blood Pressure 134/78 146/97 O2 Sat by Pulse 98 100 Oximetry Medical Decision Making - Lab Data Result diagrams: 05/06/24 19:19 05/06/24 19:19 Lab Results 05/06/24 05/06/24 05/06/24 Range/Units 19:19 19:19 19:19 WBC 16.9 H (3.8-10.6) k/uL RBC 4.56 (3.80-5.40) m/uL Hgb 15.4 (11.4-16.0) gm/dL Hct 44.9 (34.0-46.0) % MCV 98.5 (80.0-100.0) fL MCH 33.8 (25.0-35.0) pg MCHC 34.3 (31.0-37.0) g/dL RDW 12.3 (11.5-15.5) % Plt Count 406 (150-450) k/uL MPV 7.3 Neutrophils % 73 % Lymphocytes % 20 % Monocytes % 5 % Eosinophils % 1 % Basophils % 0 % Neutrophils # 12.3 H (1.3-7.7) k/uL Lymphocytes # 3.3 (1.0-4.8) k/uL Monocytes # 0.8 (0-1.0) k/uL Eosinophils # 0.2 (0-0.7) k/uL Basophils # 0.1 (0-0.2) k/uL Sodium 135 L (137-145) mmol/L Potassium 4.2 (3.5-5.1) mmol/L Chloride 102 (98-107) mmol/L Carbon Dioxide 23 (22-30) mmol/L Anion Gap 10 mmol/L BUN 22 H (7-17) mg/dL Creatinine 0.77 (0.52-1.04) mg/dL Est GFR (CKD-EPI)AfAm >90 (>60 ml/min/1.73 sqM) Est GFR (CKD-EPI)NonAf 87 (>60 ml/min/1.73 sqM) Glucose 115 H (74-99) mg/dL Calcium 9.7 (8.4-10.2) mg/dL Total Bilirubin 0.8 (0.2-1.3) mg/dL AST 29 (14-36) U/L ALT 28 (4-34) U/L Alkaline Phosphatase 94 (38-126) U/L Total Protein 7.4 (6.3-8.2) g/dL Albumin 4.6 (3.5-5.0) g/dL Amylase 73 (30-110) U/L Lipase 176 (23-300) U/L Urine Color Yellow Urine Appearance Cloudy H (Clear) Urine pH 7.0 (5.0-8.0) Ur Specific [place] 1.025 (1.001-1.035) Urine Protein Trace H (Negative) Urine Glucose (UA) Negative (Negative) Urine Ketones 1+ H (Negative) Urine Blood Moderate H (Negative) Urine Nitrite Negative (Negative) Urine Bilirubin Negative (Negative) Urine Urobilinogen <2.0 (<2.0) mg/dL Ur Leukocyte Esterase Large H (Negative) Urine RBC 19 H (0-5) /hpf Urine WBC 74 H (0-5) /hpf Ur Squamous Epith Cells 2 (0-4) /hpf Urine Bacteria Rare H (None) /hpf Urine Mucus Occasional H (None) /hpf Urine HCG, Qual (Not Detectd) 05/06/24 Range/Units 19:19 WBC (3.8-10.6) k/uL RBC (3.80-5.40) m/uL Hgb (11.4-16.0) gm/dL Hct (34.0-46.0) % MCV (80.0-100.0) fL MCH (25.0-35.0) pg MCHC (31.0-37.0) g/dL RDW (11.5-15.5) % Plt Count (150-450) k/uL MPV Neutrophils % % Lymphocytes % % Monocytes % % Eosinophils % % Basophils % % Neutrophils # (1.3-7.7) k/uL Lymphocytes # (1.0-4.8) k/uL Monocytes # (0-1.0) k/uL Eosinophils # (0-0.7) k/uL Basophils # (0-0.2) k/uL Sodium (137-145) mmol/L Potassium (3.5-5.1) mmol/L Chloride (98-107) mmol/L Carbon Dioxide (22-30) mmol/L Anion Gap mmol/L BUN (7-17) mg/dL Creatinine (0.52-1.04) mg/dL Est GFR (CKD-EPI)AfAm (>60 ml/min/1.73 sqM) Est GFR (CKD-EPI)NonAf (>60 ml/min/1.73 sqM) Glucose (74-99) mg/dL Calcium (8.4-10.2) mg/dL Total Bilirubin (0.2-1.3) mg/dL AST (14-36) U/L ALT (4-34) U/L Alkaline Phosphatase (38-126) U/L Total Protein (6.3-8.2) g/dL Albumin (3.5-5.0) g/dL Amylase (30-110) U/L Lipase (23-300) U/L Urine Color Urine Appearance (Clear) Urine pH (5.0-8.0) Ur Specific [place] (1.001-1.035) Urine Protein (Negative) Urine Glucose (UA) (Negative) Urine Ketones (Negative) Urine Blood (Negative) Urine Nitrite (Negative) Urine Bilirubin (Negative) Urine Urobilinogen (<2.0) mg/dL Ur Leukocyte Esterase (Negative) Urine RBC (0-5) /hpf Urine WBC (0-5) /hpf Ur Squamous Epith Cells (0-4) /hpf Urine Bacteria (None) /hpf Urine Mucus (None) /hpf Urine HCG, Qual Not Detected (Not Detectd) - EKG Data -: EKG Interpreted by Mo EKG shows normal: sinus rhythm, axis (Normal), intervals (Normal), QRS complexes (Normal), ST-T waves Rate: tachycardia (Rate 101 bpm) Disposition Clinical Impression: Abdominal pain, UTI (urinary tract infection) Disposition: HOME SELF-CARE Condition: Good Instructions (If sedation given, give patient instructions): Abdominal Pain (ED), Urinary Tract Infection in Women (ED) Prescriptions: Cephalexin [Keflex] 500 mg PO Q6HR 1 Days #16 cap Is patient prescribed a controlled substance at d/c from ED?: No Referrals: Juan Keller DO [Primary Care Provider] - 1-2 days
[2024-05-06] MEDS: MORPHINE SULFATE 4 MG/ML SYRINGE IV STA ×2 (19:30→21:13)
[2024-05-06] MEDS: SODIUM CHLORIDE 0.9% 1,000 ML IV ONE ×2 (19:31→21:14)
[2024-05-06] MEDS: ONDANSETRON 4 MG/2 ML VIAL IVP STA (19:31)
[2024-05-06 19:36] LABS: Basophils # (A) 0.1 k/uL (0-0.2); Basophils % (A) 0 %; Eosinophils # (A) 0.2 k/uL (0-0.7); Eosinophils % (A) 1 %; HCT 44.9 % (34.0-46.0); HGB 15.4 gm/dL (11.4-16.0); Lymphocytes # (A) 3.3 k/uL (1.0-4.8); Lymphocytes % (A) 20 %; MCH 33.8 pg (25.0-35.0); MCHC 34.3 g/dL (31.0-37.0); MCV 98.5 fL (80.0-100.0); Mean Platelet Volume 7.3; Monocytes # (A) 0.8 k/uL (0-1.0); Monocytes % (A) 5 %; Neutrophils # (A) 12.3 k/uL (1.3-7.7); Neutrophils % (A) 73 %; Platelet Count 406 k/uL (150-450); RBC 4.56 m/uL (3.80-5.40); RDW 12.3 % (11.5-15.5); WBC 16.9 k/uL (3.8-10.6)
[2024-05-06 19:46] LABS: ALT 28 U/L (4-34); African American GFR (CKD) >90 (>60 ml/min/1.73 sqM); Albumin 4.6 g/dL (3.5-5.0); Amylase 73 U/L (30-110); Anion Gap 10 mmol/L; Blood Urea Nitrogen 22 mg/dL (7-17); Calcium 9.7 mg/dL (8.4-10.2); Carbon Dioxide 23 mmol/L (22-30); Chloride 102 mmol/L (98-107); Glucose 115 mg/dL (74-99); Lipase 176 U/L (23-300); Non-African American GFR(CKD) 87 (>60 ml/min/1.73 sqM); Sodium 135 mmol/L (137-145); Total Bilirubin 0.8 mg/dL (0.2-1.3); Total Protein 7.4 g/dL (6.3-8.2)
[2024-05-06 20:04] LABS: AST 29 U/L (14-36); Alkaline Phosphatase 94 U/L (38-126); Potassium 4.2 mmol/L (3.5-5.1)
--- NOTE | 2024-05-06 20:22 | US ---
EXAMINATION TYPE: US abdomen limited DATE OF EXAM: 05/06/2024 COMPARISON: CT abdomen and pelvis March 25, 2022 CLINICAL INDICATION: Female, 53 years old with history of attention RUQ; RUQ pain, nausea and vomitin g since last night TECHNIQUE: Multiple sonographic images of the right upper quadrant are obtained. FINDINGS: EXAM MEASUREMENTS: Liver Length: 15.2 cm Gallbladder Wall: 0.2cm CBD: 0.2cm Right Kidney: 9.2 x 4.5 x 5.0cm BINDERY MACHINE TENDER NOTES:Slightly limited due to overlying bowel gas Pancreas: Obscured by bowel gas Liver: Heterogeneous hyperechoic, Gallbladder: wnl as best seen today. Previous polyp seen with US not seen today. Wall WNL Evidence for sonographic Jim's sign: No CBD: wnl as best seen Right Kidney: No hydronephrosis or masses seen as best seen today Visualized portions of pancreas unremarkable. Visualized liver and heterogeneously hyperechoic. Evalu ation for focal masses suboptimal due to the heterogeneity. No shadowing mobile gallstones in gallbla dder. IMPRESSION: No shadowing mobile gallstones or ultrasound evidence for acute cholecystitis.
[2024-05-06 21:18] VITALS: RESP 18
[2024-05-06 22:13] LABS: Appearance,Urine Cloudy (Clear); Bacteria,Urine Rare /hpf; Bilirubin,Urine Negative (Negative); Blood,Urine Moderate (Negative); Color,Urine Yellow; Glucose,Urine (UA) Negative (Negative); Ketones,Urine 1+ (Negative); Leukocyte Esterase,Urine Large (Negative); Mucus,Urine Occasional /hpf; Nitrite,Urine Negative (Negative); Protein,Urine Trace (Negative); RBC,Urine 19 /hpf (0-5); Specific Gravity,Urine 1.025 (1.001-1.035); Squamous Epithelial Cell,Urine 2 /hpf (0-4); Urobilinogen,Urine <2.0 mg/dL (<2.0); WBC,Urine 74 /hpf (0-5)
[2024-05-07 00:03] VITALS: BP 136/97; PULSE 80; TEMP 97.8
== END 2024-05-07 00:03 | disposition home or self-care (01) ==
LOC: EC 18:20
DX: N39.0 Urinary tract infection, site not specified (principal); F17.200 Nicotine dependence, unspecified, uncomplicated; F12.90 Cannabis use, unspecified, uncomplicated
CPT/HCPCS: 36415; 80053; 82150; 83690; 85025; 81001; 81025; 76705; 99284; 96365; 96375 ×2; 96376; 96361; J2270; J2405; J0696

== ENCOUNTER → 2024-07-22 | Outpatient (CLI) | payer BC ==
--- NOTE | 2024-07-22 12:12 | CT ---
EXAMINATION TYPE: CT chest w con DATE OF EXAM: 07/22/2024 COMPARISON: 01/12/2024 HISTORY: Lung nodules CT DLP: 401.70 mGycm Automated exposure control for dose reduction was used. TECHNIQUE: CT scan of the chest is performed with IV Contrast, patient injected with 100 mL of Isovue 300. MIP Images are created on CT scanner and reviewed. 3D reconstructed images are created on an independent workstation and reviewed. FINDINGS: LUNGS: Diffuse emphysematous changes. There are multiple pulmonary nodules the largest measuring 8 mm right upper lobe image 17 series 4 wh ich is stable. Additional right upper lobe subpleural pulmonary micronodules are stable. No consolidative pneumonia or pulmonary edema. There is no evidence pneumothorax or pleural effusion. MEDIASTINUM: There are no greater than 1 cm hilar or mediastinal lymph nodes. No pericardial effusi on is seen. Dense coronary artery calcification. OTHER: Low-attenuation of the liver can be associated with hepatic cirrhosis. Degenerative changes s pine. Small hiatal hernia. Small accessory splenule. IMPRESSION: 1. Stable pulmonary nodules unchanged from prior exam. Recommend additional 6 month follow-up to conf irm stability. 2. Coronary artery calcifications. 3. COPD with no focal pneumonia. Follow-up recommendations for incidental pulmonary nodules are per [employer] or [employer].
== END | disposition home or self-care (01) ==
LOC: RADCTMAIN 07:58
PROVIDERS: ATTEND Internal Medicine Critical Care Medicine
DX: R91.8 Other nonspecific abnormal finding of lung field
CPT/HCPCS: 71260

== ENCOUNTER → 2024-08-19 | Outpatient (CLI) | payer BC ==
--- NOTE | 2024-08-19 11:56 | US ---
EXAMINATION TYPE: US liver DATE OF EXAM: 08/19/2024 COMPARISON: NONE CLINICAL INDICATION: Female, 54 years old with history of K76.9 LIVER DISEASE; known liver diease, no symptoms TECHNIQUE: Grayscale and color Doppler imaging of the right upper quadrant was performed. FINDINGS: EXAM MEASUREMENTS: Liver Length: 16.4 cm Gallbladder Wall: 0.2 cm CBD: 0.4 cm Right Kidney: 9.9 x 4.5 x 4.7 cm Pancreas: wnl Liver: wnl Gallbladder: wnl Evidence for sonographic Jim's sign: no CBD: wnl Right Kidney: wnl Visualized portions of the pancreas unremarkable. Liver appears unremarkable without evidence of cirr hosis or focal hepatic lesion. No cholelithiasis, wall thickening, or surrounding fluid. Negative son ographic Jim sign. Right kidney demonstrates no hydronephrosis, nephrolithiasis, or solid mass. IMPRESSION: Unremarkable right upper quadrant ultrasound. [facility], , 08/19/2024 11:54 AM
== END | disposition home or self-care (01) ==
LOC: RADUSWWP 06:57
PROVIDERS: ATTEND Internal Medicine
DX: K76.9 Liver disease, unspecified (principal)
CPT/HCPCS: 76705

== ENCOUNTER → 2024-09-07 | Outpatient (CLI) | payer BC ==
[2024-09-07 13:27] VITALS: BP 129/85; PULSE 72; RESP 18; TEMP 97.5
--- NOTE | 2024-09-07 15:15 | P.SLEEP ---
History of Present Illness H&P Date: 09/07/24 This is a pleasant 54-year-old female patient who was referred to me for poor sleep quality. The patient states that she has not sleeping well and she has frequent nocturnal arousals. She states that she is not having any difficulties initiating sleep and her mom problems are essentially related to sleep maintenance. The patient snores and she has been noted to wake up at times choking and gasping for air. She used to sleepwalk as a child, however this has not been noted during her although through the years. Now that she is waking up in the middle of the night, she gets up and eats. This occurs approximately 5 times a week where she gets up in the middle of the night and she eats ice cream, cereals, and other leftovers. However, she is not aware that she is doing this type of eating activities half of the time. Other times, she is aware that she is headed to the kitchen for eating purposes. No significant weight gain. She goes to bed at around 8 PM and she wakes up throughout the night and ultimately she gets out of bed at around 3 AM in the morning. She has to get up with her who is a metal sheet worker and she prepares his meals. She is taking naps probably 1 or 2 in the afternoon and those naps can extend up to an hour or 2. She sleeps on her stomach. She watches television in her bedroom. No osteoporosis. No hallucinations. No cataplexy. No history of any motor vehicle accidents because of feeling drowsy or sleepy. On a separate note, the patient has chronic anxiety and depression. She has been utilizing marijuana Gummies to help her with sleep and pain. She also has fibromyalgia, hypertension and coronary artery disease and I saw her in the pulmonary clinic in the past for a pulmonary nodule which is being monitored. The patient has no weight gain. She used to drink alcohol in excess approximately 1 bottle of wine every night starting at 3 PM and she had done that for around 15 years and as of May 2024 she quit drinking alcohol. She is a smoker and she smokes 1/2 pack of cigarettes a day. No nocturnal chest pain. No heartburn. She has trouble waking up in the morning and she feels tired and sleepy and she has problems with memory and concentration. For all these reasons, the patient was referred to me for further evaluation. Review of Systems Constitutional: Reports daytime sleepiness, Reports fatigue Eyes: denies as per HPI, denies blurred vision, denies bulging eye, denies decreased vision, denies diplopia, denies discharge, denies dry eye, denies irritation, denies itching, denies pain, denies photophobia, denies loss of peripheral vision, denies loss of vision, denies tunnel vision/blind spots Ears: deny: decreased hearing, ear discharge, earache, tinnitus Ears, nose, mouth and throat: Reports as per HPI Breasts: absent: as per HPI, change in shape, gynecomastia, masses, nipple discharge, pain, skin changes, swelling Cardiovascular: Reports as per HPI Respiratory: Reports as per HPI Gastrointestinal: Reports as per HPI Genitourinary: Reports as per HPI Menstruation: Reports as per HPI Musculoskeletal: Reports as per HPI, Reports hot joints, Reports low back pain, Reports morning stiffness, Reports myalgias, Reports neck pain, Reports neck stiffness Musculoskeletal: absent: ankle pain, ankle stiffness, ankle swelling, as per HPI, elbow pain, elbow stiffness, elbow swelling, foot pain, foot stiffness, foot swelling, hand pain, hand stiffness, hand swelling, hip pain, hip stiffness, hip swelling, knee pain, knee stiffness, knee swelling, shoulder pain, shoulder stiffness, shoulder swelling, wrist pain, wrist stiffness, wrist swelling Integumentary: Reports as per HPI Neurological: Reports as per HPI Psychiatric: Reports anxiety, Reports depression, Reports sleep disturbances Endocrine: Reports as per HPI, Reports fatigue Hematologic/Lymphatic: Reports as per HPI Allergic/Immunologic: Reports as per HPI Past Medical History Past Medical History: Coronary Artery Disease (CAD), Chest Pain / Angina, COPD, Fibromyalgia, GERD/Reflux, Hyperlipidemia, Hypertension, Myocardial Infarction ([place]) Additional Past Medical History / Comment(s): 10/26/19 [place], gallbladder polyp, cluster headaches, IBS, diverticular disease, bronchitis, past R patella and r hand fracture. 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 see Dr Thurston's h & p, (?right)lung tumor - being monitored, fibroymyalgia, arthritis, bronchitis (chronic), snoring, anxiety/depression Last Myocardial Infarction Date:: 10/26/19 History of Any Multi-Drug Resistant Organisms: None Reported Past Surgical History: Section, Heart Catheterization With Stent, Hysterectomy Additional Past Surgical History / Comment(s): Colonoscopies/EGDs, stents X2 (2 stents the first time and one the second time) Past Anesthesia/Blood Transfusion Reactions: No Reported Reaction Date of Last Stent Placement:: 10/26/19 Past Psychological History: Anxiety, Depression Additional Psychological History / Comment(s): . Smoking Status: Current some day smoker Past Alcohol Use History: None Reported Additional Past Alcohol Use History / Comment(s): 4 glass to bottle of wine 3 times weekly 5-6 cig per day, 09/07/24 pt states she quit alcohol in May 2024 Past Drug Use History: Marijuana Additional Drug Use History / Comment(s): gummies marijuana occasionally refrain x 24 hours prior - Past Family History Mother Family Medical History: Hypertension Additional Family Medical History / Comment(s): Parents - HTN. Father Family Medical History: No Reported History Additional Family Medical History / Comment(s): Father is 74 and healthy Medications and Allergies Home Medications Medication Instructions Recorded Confirmed Type DULoxetine HCL [Cymbalta] 60 mg PO DAILY 10/26/19 09/07/24 History ARIPiprazole [Abilify] 5 mg PO DAILY 10/15/21 02/05/24 History Metoprolol Tartrate [Lopressor] 50 mg PO QAM 10/15/21 09/07/24 History lisinopriL [Zestril] 10 mg PO DAILY 10/15/21 09/07/24 History Albuterol Inhaler [Ventolin Hfa 1 - 2 puff INHALATION Q6H PRN 04/28/23 02/05/24 History Inhaler] Nitroglycerin 0.4 mg SL Q5M PRN 04/28/23 02/05/24 History hydroCHLOROthiazide 25 mg PO DAILY 04/28/23 09/07/24 History Prasugrel [Effient] 10 mg PO DAILY 01/28/24 02/05/24 History Cephalexin [Keflex] 500 mg PO Q6HR 1 Days #16 cap 05/06/24 Rx Aspirin [Adult Low Dose Aspirin EC] 81 mg PO DAILY 09/07/24 09/07/24 History Allergies Allergy/AdvReac Type Severity Reaction Status Date / Time [place]hee-VGL-IqI Reductase Allergy liver Verified 02/05/24 08:23 Inhibitor failure atorvastatin [From Lipitor] AdvReac "LIVER Verified 02/05/24 08:23 FAILURE" Physical Exam Vitals: Vital Signs Temp Pulse Resp BP Pulse Ox 09/07/24 13:26 97.5 F L 72 18 129/85 98 Intake and Output 09/07/24 09/07/24 09/07/24 06:59 14:59 22:59 Other: Weight 85.786 kg The patient appeared well nourished and normally developed. Vital signs as documented. Head exam is unremarkable. No scleral icterus or corneal arcus noted. Neck is without jugular venous distension, thyromegaly, or carotid bruits. Carotid upstrokes are brisk bilaterally. The patient has a Mallampati class IV with significant crowding of the posterior pharynx. Lungs are clear to auscultation and percussion. Cardiac exam reveals the PMI to be normally sized and situated. Rhythm is regular. First and second heart sounds normal. No murmurs, rubs or gallops. Abdominal exam reveals normal bowel sounds, no masses, no organomegaly and no aortic enlargement. Extremities are nonedematous and both femoral and pedal pulses are normal. Examination of the skin revealed no evidence of significant rashes, suspicious appearing nevi or other concerning lesions. Neurologically, the patient is awake and alert and the patient does not have any focal neurological deficit. Cranial nerves are essentially intact. Assessment and Plan Plan: Chronic daytime hypersomnia with a multitude of comorbidities affecting her sleep quality. Rule out possibility of obstructive sleep apnea as the patient snores and occasionally wakes up gasping and choking. However, she does have a number of other comorbidities affecting her sleep quality including chronic anxiety and depression. The patient also used to consume alcohol in large quantities and she has quit drinking approximately 4 to 5 months ago. This obviously could have contributed to sleep fragmentation over the years as alcohol consumption in large quantities is known to do that. Also, she has fibromyalgia, known to contribute to chronic insomnia, sleep fragmentation and chronic fatigue along with pain. Based on that, further investigation will be needed Sleep eating disorder. Rule out parasomnia versus sleep hygiene related/behavioral manifestation Fibromyalgia Chronic anxiety and depression the patient is utilizing marijuana Gummies Smoker Coronary artery disease Hypertension History of pulmonary nodule being monitored on outpatient basis History of cluster headaches Irritable bowel disease Diverticular disease Acid reflux, currently inactive and stable Plan Will set up the patient for a screening polysomnogram to evaluate the extent of sleep fragmentation and looking for any other pathology such as sleep breathing disorder. Will make further recommendations based on the PSG findings. The patient will be kept on the same medication for now which includes Cymbalta for fibromyalgia. Will asked the patient to maintain regular sleep schedule and avoid taking naps during the day. She needs to consolidate her sleeping hours mainly in p.m. She has to wake up early in the morning for social reasons. This will be useful to go to bed earlier to extend a number of hours of sleep to an average of 7 hours per night. Will continue to follow. Sleep Note - Sleep Data ESS Total: 13 - Sleep Note Sleep Note: Temperature: 97.5 F Pulse Rate: 72 Respiratory Rate: 18 Blood Pressure: 129/85 SpO2: 98 Height: 5 ft 2 in Weight: 85.786 kg BMI: Neck Circumference: 15
== END ==
LOC: 3 N SLEEP 13:04
PROVIDERS: ATTEND Internal Medicine Critical Care Medicine
CPT/HCPCS: 99211

== ENCOUNTER → 2025-01-19 | Outpatient (CLI) | payer BC ==
--- NOTE | 2025-01-19 08:40 | CT ---
EXAMINATION TYPE: CT soft tissue neck w con DATE OF EXAM: 01/19/2025 COMPARISON: Prior neck CT January 12, 2024 CLINICAL INDICATION: Female, 54 years old with history of R22.1 localized swelling/mass/lump, NECK MA SS TECHNIQUE: CT scan of the neck is performed with IV Contrast, patient injected with 100 mL of Isovue 300, axial images are obtained, coronal and sagittal reformatted images are reviewed. CT DLP: 433.2 mGycm. Automated Exposure Control for Dose Reduction was Utilized. FINDINGS: Airway: Mild underlying emphysematous change in the upper lungs is redemonstrated. Stable 7 to 8 mm r ight upper lobe pulmonary nodule axial image 10 Parotid/submandibular glands: Stable 1.1 x 1.0 cm round circumscribed hyperdense lesion in the heavy duty press operator ior right parotid gland axial image 56. Stable 8 x 7 mm anterior-inferior left sided hyperdense mass axial image 60. Carotid/Vascular Structures: Wixa-lh-snzyvhke focal mixed plaque left carotid bulb level is redemonst rated. Osseous Structures: Lwsf-vs-kwotggpl multilevel disc space narrowing and spurring C4-C5 through C6-C7 levels is redemonstrated Other: Stable 1.6 cm mucous retention cyst or polyp in inferior left maxillary sinus IMPRESSION: There are stable 2 small solid masses in the bilateral parotid glands. Neoplasm needs to be considered. Malignant etiology is felt less likely given interval stability. Correlate clinically . No new suspicious masses or adenopathy is identified. [facility], , 01/19/2025 8:38 AM
== END | disposition home or self-care (01) ==
LOC: RADCTMAIN 07:54
PROVIDERS: ATTEND Otolaryngology
DX: R22.1 Localized swelling, mass and lump, neck (principal)
CPT/HCPCS: 70491; Q9967

== ENCOUNTER 2025-02-15 08:14 | Inpatient (IN) | payer BC ==
--- NOTE | 2025-02-15 08:35 | ED ---
General Adult HPI - General Chief complaint: Chest Pain Stated complaint: chest pain,left arm numbness , SOB Time Seen by Provider: 02/15/25 08:16 Source: patient Mode of arrival: wheelchair Limitations: no limitations - History of Present Illness Initial comments: Dictation was produced using [employer] dictation software. please excuse any grammatical, word or spelling errors. Chief Complaint: 54-year-old female with extensive cardiac history presents with chest pain History of Present Illness: Patient is a 54-year-old female presents listed problem chest pain. Patient states that her pain feels like pressure in her chest that radiates on her left upper extremity she has extensive history of coronary artery disease including multiple coronary artery stents. She states that she was recently without a beater room supervisor after there was disagreement between her and her beater room supervisor regarding cholesterol medications. She states that she was supposed to follow-up with a new one today however has not done so yet. Patient took some nitroglycerin. States that her symptoms were associated diaphoresis and nausea. The ROS documented in this emergency department record has been reviewed and confirmed by me. Those systems with pertinent positive or negative responses have been documented in the HPI. All other systems are other negative and/or noncontributory. - Related Data Home Medications Medication Instructions Recorded Confirmed DULoxetine HCL [Cymbalta] 60 mg PO DAILY 10/26/19 02/15/25 lisinopriL [Zestril] 10 mg PO DAILY 10/15/21 02/15/25 Nitroglycerin 0.4 mg SL Q5M PRN 04/28/23 02/15/25 hydroCHLOROthiazide 25 mg PO DAILY 04/28/23 02/15/25 Aspirin [Adult Low Dose Aspirin EC] 81 mg PO DAILY 09/07/24 02/15/25 Evolocumab [Repatha Sureclick] 140 mg SQ Q14D 02/15/25 02/15/25 Metoprolol Tartrate [Lopressor] 50 mg PO DAILY 02/15/25 02/15/25 Tiotropium Br/Olodaterol HCl 2 puff INHALATION RT-DAILY PRN 02/15/25 02/15/25 [Stiolto Respimat Inhaler (60)] Allergies Allergy/AdvReac Type Severity Reaction Status Date / Time ezetimibe [From Zetia] Allergy Anaphylaxis Verified 02/15/25 08:37 Wjfecbs-QPT-ArI Reductase Allergy liver Verified 02/15/25 08:37 Inhibitor failure atorvastatin [From Lipitor] AdvReac "LIVER Verified 02/15/25 08:37 FAILURE" Review of Systems ROS Statement: Those systems with pertinent positive or pertinent negative responses have been documented in the HPI. ROS Other: All systems not noted in ROS Statement are negative. Past Medical History Past Medical History: Coronary Artery Disease (CAD), Chest Pain / Angina, COPD, Fibromyalgia, GERD/Reflux, Hyperlipidemia, Hypertension, Myocardial Infarction ([place]) Additional Past Medical History / Comment(s): 10/26/19 [place], gallbladder polyp, cluster headaches, IBS, diverticular disease, bronchitis, past R patella and r hand fracture. 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 see Dr Thurston's h & p, (?right)lung tumor - being monitored, fibroymyalgia, arthritis, bronchitis (chronic), snoring, anxiety/depression Last Myocardial Infarction Date:: 10/26/19 History of Any Multi-Drug Resistant Organisms: None Reported Past Surgical History: Heart Catheterization With Stent Additional Past Surgical History / Comment(s): Colonoscopies/EGDs, stents X2 (2 stents the first time and one the second time) Past Anesthesia/Blood Transfusion Reactions: No Reported Reaction Date of Last Stent Placement:: 10/26/19 Past Psychological History: Anxiety, Depression Past Alcohol Use History: None Reported - Past Family History Mother Family Medical History: No Reported History Additional Family Medical History / Comment(s): . Father Family Medical History: No Reported History Additional Family Medical History / Comment(s): Father is 74 and healthy General Exam - General Exam Comments Initial Comments: PHYSICAL EXAM: General Impression: Alert and oriented x3, not in acute distress HEENT: Normocephalic atraumatic, extra-ocular movements intact, pupils equal and reactive to light bilaterally, mucous membranes moist. Cardiovascular: Heart regular rate and rhythm Chest: Able to complete full sentences, no retractions, no tachypnea Abdomen: abdomen soft, non-tender, non-distended, no organomegaly Musculoskeletal: Pulses present and equal in all extremities, no peripheral edema Motor: no focal deficits noted Neurological: CN II-XII grossly intact, no focal motor or sensory deficits noted Skin: Intact with no visualized rashes Psych: Normal affect and mood Limitations: no limitations Course Vital Signs 02/15/25 02/15/25 08:16 09:01 Temperature 99.6 F Pulse Rate 98 70 Respiratory 20 20 Rate Blood Pressure 154/102 114/90 O2 Sat by Pulse 98 99 Oximetry EKG Findings - EKG Comments: EKG Findings:: My EKG interpretation: Ventricular rate 87, sinus rhythm, [place] interval 139, QRS 89, QTc 405. No [place] prolongation, no QTC prolongation, no ST or T-wave changes noted. Overall, this EKG is unremarkable Medical Decision Making - Medical Decision Making Was pt. sent in by a medical professional or institution (, PA, [employer], urgent care, hospital, or retirement...) When possible be specific @ -No Did you speak to anyone other than the patient for history (EMS, parent, family, police, friend...)? What history was obtained from this source @ -No Did you review nursing and triage notes (agree or disagree)? Why? @ -I reviewed and agree with nursing and triage notes Were old charts reviewed (outside hosp., previous admission, EMS record, old EKG, old radiological studies, urgent care reports/EKG's, retirement records)? Report findings @ -See above Differential Diagnosis (chest pain, altered mental status, abdominal pain women, abdominal pain men, vaginal bleeding, musculoskeletal, weakness, fever, dyspnea, syncope, headache, dizziness, GI bleed, back pain, seizure, CVA, palpatations, mental health)? @ -Differential Chest Pain: Stable Angina, Unstable Angina, STEMI, NSTEMI Aortic Dissection, Pneumothorax, Musculoskeletal, Esophageal Spasm GERD, Cholecystitis, Pancreatitis, Zoster, this is not meant to be an all-inclusive list. EKG interpreted by me (3pts min.). @ -See above X-rays interpreted by me (1pt min.). @ -Chest x-ray shows no acute processes CT interpreted by me (1pt min.). @ -None done U/S interpreted by me (1pt. min.). @ -None done What testing was considered but not performed or refused? (CT, X-rays, U/S, labs)? Why? @ -None What meds were considered but not given or refused? Why? @ -None Was smoking cessation discussed for >3mins.? @ -No Were there social determinants of health that impacted care today? How? (Homelessness, low income, unemployed, alcoholism, drug addiction, transportation, low edu. Level, literacy, decrease access to med. care, penitentiary, rehab)? @ -No Was there de-escalation of care discussed even if they declined (Discuss DNR or withdrawal of care, Hospice)? DNR status @ -No What co-morbidities impacted this encounter? (DM, HTN, Smoking, COPD, CAD, Cancer, CVA, ARF, Chemo, Hep., AIDS, mental health diagnosis, sleep apnea, morbid obesity)? @ -Coronary artery disease Was patient admitted / discharged? Hospital course, mention meds given and route, prescriptions, significant lab abnormalities, going to OR and other pertinent info. @ -54-year-old female presents to the emergency department for symptoms concerning for acute coronary syndrome. Vital signs upon arrival are within acceptable limits. EKG shows no signs of ischemia infarction. Laboratory evaluation is unremarkable. Chest x-ray is nonacute. Given patient's extensive medical history and risk factors she will be admitted observation for cardiac monitoring, cardiology consultation. Case discussed with hospitalist for admission Did you discuss the management of the patient with other professionals (professionals i.e. , PA, [employer], lab, RT, psych nurse, high school social studies tutor, e/m engineer, teacher, security police officer, special education case manager)? Give summary @ -See above Was critical care preformed (if so, how long)? @ -No Undiagnosed new problem with uncertain prognosis? @ -No Drug Therapy requiring intensive monitoring for toxicity (Heparin, Nitro, Insulin, Cardizem)? @ -No Were any procedures done? @ -No Diagnosis/symptom? Acute, or Chronic, or Acute on Chronic? Uncomplicated (without systemic symptoms) or Complicated (systemic symptoms)? @ -Acute coronary syndrome Side effects of treatment? @ -No Exacerbation, Progression, or Severe Exacerbation? @ -No Poses a threat to life or bodily function? How? (Chest pain, [place], [place], pneumonia, PE, COPD, DKA, ARF, appy, cholecystitis, CVA, Diverticulitis, Homicidal, Suicidal, threat to staff... and all critical care pts) @ -yes - Lab Data Result diagrams: 02/15/25 08:31 02/15/25 08:31 Lab Results 02/15/25 02/15/25 02/15/25 Range/Units 08:31 08:31 08:31 WBC 6.96 (4.50-10.00) 10*3/uL RBC 4.56 (4.10-5.20) 10*6/uL Hgb 14.8 (12.0-15.0) g/dL Hct 42.5 (37.2-46.3) % MCV 93.2 (80.0-97.0) fL MCH 32.5 H (27.0-32.0) pg MCHC 34.8 (32.0-37.0) g/dL Plt Count 333 (140-440) 10*3/uL MPV 8.3 L (9.5-12.2) fL Immature Gran % (Auto) 0.1 % Neutrophils % 53.0 % Lymphocytes % 36.6 % Monocytes % 9.3 % Eosinophils % 0.0 % Basophils % 1.0 % Immature Gran # 0.01 (0.00-0.04) 10*3/uL Neutrophils # 3.68 (1.80-7.70) 10*3/uL Lymphocytes # 2.55 (0.90-5.00) 10*3/uL Monocytes # 0.65 (0.20-1.00) 10*3/uL Eosinophils # 0.00 L (0.04-0.35) 10*3/uL Basophils # 0.07 (0.00-0.10) 10*3/uL PT 10.1 (10.0-12.5) sec INR 0.9 (<1.2) APTT 24.1 (22.0-30.0) sec Sodium 136 L (137-145) mmol/L Potassium 4.5 (3.5-5.1) mmol/L Chloride 101 (98-107) mmol/L Carbon Dioxide 28 (22-30) mmol/L Anion Gap 7 mmol/L BUN 14 (7-17) mg/dL Creatinine 0.77 (0.52-1.04) mg/dL Est GFR (CKD-EPI)AfAm >90 (>60 ml/min/1.73 sqM) Est GFR (CKD-EPI)NonAf 87 (>60 ml/min/1.73 sqM) Glucose 121 H (74-99) mg/dL Calcium 9.5 (8.4-10.2) mg/dL Magnesium 2.2 (1.6-2.3) mg/dL Total Bilirubin 0.6 (0.2-1.3) mg/dL AST 25 (14-36) U/L ALT 27 (4-34) U/L Alkaline Phosphatase 92 (38-126) U/L Troponin I (0.000-0.034) ng/mL Total Protein 7.1 (6.3-8.2) g/dL Albumin 4.3 (3.5-5.0) g/dL 02/15/25 Range/Units 08:31 WBC (4.50-10.00) 10*3/uL RBC (4.10-5.20) 10*6/uL Hgb (12.0-15.0) g/dL Hct (37.2-46.3) % MCV (80.0-97.0) fL MCH (27.0-32.0) pg MCHC (32.0-37.0) g/dL Plt Count (140-440) 10*3/uL MPV (9.5-12.2) fL Immature Gran % (Auto) % Neutrophils % % Lymphocytes % % Monocytes % % Eosinophils % % Basophils % % Immature Gran # (0.00-0.04) 10*3/uL Neutrophils # (1.80-7.70) 10*3/uL Lymphocytes # (0.90-5.00) 10*3/uL Monocytes # (0.20-1.00) 10*3/uL Eosinophils # (0.04-0.35) 10*3/uL Basophils # (0.00-0.10) 10*3/uL PT (10.0-12.5) sec INR (<1.2) APTT (22.0-30.0) sec Sodium (137-145) mmol/L Potassium (3.5-5.1) mmol/L Chloride (98-107) mmol/L Carbon Dioxide (22-30) mmol/L Anion Gap mmol/L BUN (7-17) mg/dL Creatinine (0.52-1.04) mg/dL Est GFR (CKD-EPI)AfAm (>60 ml/min/1.73 sqM) Est GFR (CKD-EPI)NonAf (>60 ml/min/1.73 sqM) Glucose (74-99) mg/dL Calcium (8.4-10.2) mg/dL Magnesium (1.6-2.3) mg/dL Total Bilirubin (0.2-1.3) mg/dL AST (14-36) U/L ALT (4-34) U/L Alkaline Phosphatase (38-126) U/L Troponin I <0.012 (0.000-0.034) ng/mL Total Protein (6.3-8.2) g/dL Albumin (3.5-5.0) g/dL Disposition Clinical Impression: ACS (acute coronary syndrome) Disposition: ADMITTED IP TO THIS HOSP Condition: Fair Referrals: Juan Keller DO [Primary Care Provider] - 1-2 days Decision Time: 09:25
[2025-02-15] MEDS: ASPIRIN 81 MG PO STA (08:39)
[2025-02-15 08:44] LABS: Basophils # (A) 0.07 10*3/uL (0.00-0.10); HCT 42.5 % (37.2-46.3); HGB 14.8 g/dL (12.0-15.0); Lymphocytes # (A) 2.55 10*3/uL (0.90-5.00); Lymphocytes % (A) 36.6 %; MCH 32.5 pg (27.0-32.0); MCHC 34.8 g/dL (32.0-37.0); MCV 93.2 fL (80.0-97.0); Mean Platelet Volume 8.3 fL (9.5-12.2); Monocytes # (A) 0.65 10*3/uL (0.20-1.00); Monocytes % (A) 9.3 %; Neutrophils # (A) 3.68 10*3/uL (1.80-7.70); Platelet Count 333 10*3/uL (140-440); RBC 4.56 10*6/uL (4.10-5.20); WBC 6.96 10*3/uL (4.50-10.00)
--- NOTE | 2025-02-15 08:57 | XR ---
EXAMINATION TYPE: XR chest 2V DATE OF EXAM: 02/15/2025 CLINICAL INDICATION: Female, 54 years old with history of Chest Pain, TECHNIQUE: Frontal and lateral views of the chest are obtained. COMPARISON: Prior chest CT July 22, 2024 FINDINGS: There is no focal air space opacity, pleural effusion, or pneumothorax seen. The cardiac silhouette size is stable and within normal limits. The osseous structures are intact. IMPRESSION: No acute process. [facility], , 02/15/2025 8:54 AM
[2025-02-15 08:59] LABS: ALT 27 U/L (4-34); AST 25 U/L (14-36); African American GFR (CKD) >90 (>60 ml/min/1.73 sqM); Albumin 4.3 g/dL (3.5-5.0); Alkaline Phosphatase 92 U/L (38-126); Anion Gap 7 mmol/L; Blood Urea Nitrogen 14 mg/dL (7-17); Calcium 9.5 mg/dL (8.4-10.2); Carbon Dioxide 28 mmol/L (22-30); Chloride 101 mmol/L (98-107); Glucose 121 mg/dL (74-99); Magnesium 2.2 mg/dL (1.6-2.3); Non-African American GFR(CKD) 87 (>60 ml/min/1.73 sqM); Potassium 4.5 mmol/L (3.5-5.1); Sodium 136 mmol/L (137-145); Total Bilirubin 0.6 mg/dL (0.2-1.3); Total Protein 7.1 g/dL (6.3-8.2)
[2025-02-15 09:10] LABS: INR 0.9 (<1.2); Partial Thromboplastin Time 24.1 sec (22.0-30.0); Prothrombin Time 10.1 sec (10.0-12.5)
[2025-02-15] MEDS ORDERED: NITROGLYCERIN SL TABS 0.4 MG TAB SUBLINGUAL PRN ×2 (09:26→09:31)
[2025-02-15] MEDS ORDERED: FORMOTEROL FUMARATE 20 MCG/2 ML NEBU INHALATION PRN (09:31)
[2025-02-15] MEDS ORDERED: TIOTROPIUM 2.5 MCG INHALER INHALATION PRN (09:40)
[2025-02-15] MEDS: DULoxetine HCL 60 MG CAPSULE.DR PO SCH (09:46)
[2025-02-15] MEDS: METOPROLOL TARTRATE 50 MG TAB PO SCH (09:46)
[2025-02-15] MEDS: hydroCHLOROthiazide 25 MG TAB PO SCH (09:46)
[2025-02-15] MEDS: lisinopriL 10 MG TAB PO SCH (09:46)
[2025-02-15] MEDS ORDERED: HYDROcodone/APAP 5-325MG 1 EACH TAB PO PRN (10:48)
--- NOTE | 2025-02-15 10:50 | P.HPIM ---
History of Present Illness H&P Date: 02/15/25 History of Presenting Illness: Patient is a 54-year-old female with a past medical history of CAD status post stenting x 3 with last stent placed in 2022, hypertension, hyperlipidemia, COPD with continued nicotine dependence not home oxygen dependent, fibromyalgia, and GERD. She reports she used to follow with repair manager Dr. Thurston but they mutually parted ways and she is scheduled to see repair manager in [facility] tomorrow. Patient presented to the hospital today secondary to reports of chest pain. She reports approximately 1 hour prior to arrival she began having chest pain in her midsternal chest that radiated into left anterior chest and down left arm accompanied by some dizziness. She does admit to some shortness of breath but reports this is chronic secondary to her COPD and denies having any increase or changes in her baseline shortness of breath. Patient admits to smoking approximately a half of a pack of cigarettes daily. She denies having any headache, changes in vision or hearing, palpitations, increase or changes in chronic cough or congestion, nausea or vomiting, abdominal pain, or experiencing any numbness/tingling/weakness/swelling in her extremities. Upon arrival to our facility, patient underwent evaluation in the emergency department. Vital signs upon arrival show blood pressure 154/102, heart rate 98, respiratory rate 20, temp 99.6 F, and SpO2 of 98% on room air. EKG completed showing normal sinus rhythm at 87 bpm with no significant T wave or ST abnormality showing no signs of acute ischemia upon personal review and interpretation. Labs completed and reviewed. CBC unremarkable. Coagulation profile normal findings. BMP showing hyperglycemia with blood glucose of 121 otherwise normal findings. Magnesium was 2.2. Liver profile normal findings. Troponin was negative at less than 0.012. Review of systems: Pertinent positives and negatives as discussed in HPI, a complete review of systems was performed and all other systems are negative. Physical exam: Vital signs reviewed and stable. General: Nontoxic, no distress and appears stated age. Derm: Skin warm and dry, normal coloration for ethnicity. Head: Atraumatic, normocephalic and symmetric. Eyes: EOM's intact, no lid lag, and anicteric sclera Mouth: no lip lesions, mucus membranes moist Cardiovascular: regular rate and rhythm with normal S1S2, no murmur, positive posterior tibial pulses bilaterally, and cap refill < 2 seconds. Lungs: Respirations even, regular, and unlabored on room air. Lungs CTA bilaterally, no rhonchi, no rales, no wheezing, and no accessory muscle usage. Abdominal: soft, nontender to palpation, no guarding, no appreciable organomegaly Ext: ROM intact. No gross muscle atrophy, no edema, no contractures Neuro: Speech clear, face symmetrical and CN II-XII grossly intact with no noted focal neuro deficits Psych: Alert and oriented to person, place, time, and situation. Appropriate and pleasant affect. Assessment and Plan of Care: Chest pain, rule out acute coronary event History of CAD status post stenting x 3 Hypertension Hyperlipidemia -Cardiology consulted, appreciate recommendations -Telemetry monitoring -Trend troponins -Continue cardiac medication regimen with aspirin 81 mg daily, hydrochlorothi azide 25 mg daily, lisinopril 10 mg daily, and metoprolol 50 mg daily. -Lipid profile with a.m. labs. -Echocardiogram COPD, not in acute exacerbation Nicotine dependence -Continue Spiriva 2 puffs daily and as needed DuoNebs for wheezing/shortness of breath. -Recommended smoking cessation and order placed for nicotine patch 14 mg daily. Fibromyalgia -Supportive and symptomatic care. Tylenol 650 mg p.o. every 6 hours as needed for mild pain and [place] 5/325 mg tablets as needed for moderate pain. The patient is admitted with an anticipated less than 2 midnight stay for evaluation of chest pain CODE STATUS full code DVT prophylaxis: Lovenox Discussed with: Patient, RN, and ED physician. Anticipated discharge date: 24 to [address]: Home Patient was seen independently by Nurse Practitioner. This document was prepared using [email or web address] dictation software. Please allow for errors in technology architect while rare they do occur. Kalin Hill NP rendered care for this patient independently, reviewed the findings and plan as documented in the note above and agree with plan. I did not physically speak with or examine the patient on this date. Past Medical History Past Medical History: Coronary Artery Disease (CAD), Chest Pain / Angina, COPD, Fibromyalgia, GERD/Reflux, Hyperlipidemia, Hypertension, Myocardial Infarction ([place]) Additional Past Medical History / Comment(s): 10/26/19 [place], gallbladder polyp, cluster headaches, IBS, diverticular disease, bronchitis, past R patella and r hand fracture. 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 see Dr Thurston's h & p, (?right)lung tumor - being monitored, fibroymyalgia, arthritis, bronchitis (chronic), snoring, anxiety/depression Last Myocardial Infarction Date:: 10/26/19 History of Any Multi-Drug Resistant Organisms: None Reported Past Surgical History: Heart Catheterization With Stent Additional Past Surgical History / Comment(s): Colonoscopies/EGDs, stents X2 (2 stents the first time and one the second time) Past Anesthesia/Blood Transfusion Reactions: No Reported Reaction Date of Last Stent Placement:: 10/26/19 Past Psychological History: Anxiety, Depression Past Alcohol Use History: None Reported - Past Family History Mother Family Medical History: No Reported History Additional Family Medical History / Comment(s): . Father Family Medical History: No Reported History Additional Family Medical History / Comment(s): Father is 74 and healthy Medications and Allergies Home Medications Medication Instructions Recorded Confirmed Type DULoxetine HCL [Cymbalta] 60 mg PO DAILY 10/26/19 02/15/25 History lisinopriL [Zestril] 10 mg PO DAILY 10/15/21 02/15/25 History Nitroglycerin 0.4 mg SL Q5M PRN 04/28/23 02/15/25 History hydroCHLOROthiazide 25 mg PO DAILY 04/28/23 02/15/25 History Aspirin [Adult Low Dose Aspirin EC] 81 mg PO DAILY 09/07/24 02/15/25 History Evolocumab [Repatha Sureclick] 140 mg SQ Q14D 02/15/25 02/15/25 History Metoprolol Tartrate [Lopressor] 50 mg PO DAILY 02/15/25 02/15/25 History Tiotropium Br/Olodaterol HCl 2 puff INHALATION RT-DAILY PRN 02/15/25 02/15/25 History [Stiolto Respimat Inhaler (60)] Allergies Allergy/AdvReac Type Severity Reaction Status Date / Time ezetimibe [From Zetia] Allergy Anaphylaxis Verified 02/15/25 08:37 [id number] Reductase Allergy liver Verified 02/15/25 08:37 Inhibitor failure atorvastatin [From Lipitor] AdvReac "LIVER Verified 02/15/25 08:37 FAILURE" Physical Exam Vitals: Vital Signs Temp Pulse Resp BP Pulse Ox 02/15/25 09:01 70 20 114/90 99 04/08/25 08:16 99.6 F 98 20 154/102 98 Intake and Output 02/14/25 02/15/25 02/15/25 22:59 06:59 14:59 Other: Weight 86.183 kg Results CBC & Chem 7: 02/15/25 08:31 02/15/25 08:31 Labs: Abnormal Lab Results - Last 24 Hours (Table) 02/15/25 02/15/25 Range/Units 08:31 08:31 MCH 32.5 H (27.0-32.0) pg MPV 8.3 L (9.5-12.2) fL Eosinophils # 0.00 L (0.04-0.35) 10*3/uL Sodium 136 L (137-145) mmol/L Glucose 121 H (74-99) mg/dL
[2025-02-15] MEDS: NICOTINE 14MG/24HR PATCH TRANSDERM SCH (10:57)
[2025-02-15] MEDS: IPRATROPIUM-ALBUTEROL 3 ML NEB INHALATION PRN (11:32)
--- NOTE | 2025-02-15 14:09 | P.CRDCN ---
History of Present Illness History of present illness: HISTORY OF PRESENT ILLNESS: This is a 54-year-old female with a past medical history significant for coronary artery disease with previous stenting, hypertension, hyperlipidemia, statin intolerance, and former nicotine dependence. Patient does not follow with a political geographer. The patient previously followed with Dr. Thurston. She was last seen in the office in July 2024. Per office records, At that time the patient was apparently upset as she was prescribed Zetia and was yelling at Dr. Thurston and his nurse practitioner and threatening to jeyson the office per his office dictation and stated she was not comfortable with him prescribing medications and stated she no longer wanted to follow with Dr. Thurston. We have been asked to see the patient in consultation for chest pain. Patient examined at the bedside in the ER. Upon entering the room, Dr. Miner introduced himself and stated he was a partner of Dr. Thurston and asked the patient if she wanted to be seen by him. Patient was agreeable to be evaluated by Dr. Miner. The patient states that today she was driving to [employer] when she began to have chest pain. She states that she took 2 nitro with no relief of her pain. She states the pain felt like " labor pains in her chest". She reports the pain radiated into her arm. She states that this feels similar to previous episodes when she required stenting. She continues to smoke about 10 cigarettes a day. She quit drinking alcohol in May 2024. At the time of examination, patient denies chest pain or pressure. Vital signs are stable. DIAGNOSTICS: - EKG reveals sinus mechanism with no signs of acute ischemia. - Chest xray negative for acute process - Laboratory data: WBC 6.96. Hemoglobin 14.8. Platelet count 333. Sodium 136. Potassium 4.5. BUN 14. Creatinine 0.77. Troponin negative x 2. - Current home cardiac medications include Repatha 140 mg subcu every 14 days, metoprolol tartrate 50 mg daily, hydrochlorothiazide 25 mg daily, lisinopril 10 mg daily, aspirin 81 mg daily. - Patient underwent low-level treadmill stress test in June 2023 which was nondiagnostic secondary to inadequate chronotropic response - Most recent echocardiogram obtained in January 2023 revealed ejection fraction 55%, mild MR, mild TR - Cardiac catheterization history: April 2023 revealing 85% proximal circumflex, 50% RCA in-stent stenosis, and 40% mid RCA stenosis. iFR RCA normal, IFR of the circumflex abnormal. Patient underwent stenting of the circumflex. REVIEW OF SYSTEMS: At the time of my exam: CONSTITUTIONAL: Denies fever or chills. HEENT: Denies blurred vision, vision changes, or eye pain. Denies hemoptysis CARDIOVASCULAR: Denies chest pain. Denies orthopnea. Denies PND. Denies palpitations RESPIRATORY: Denies shortness of breath. GASTROINTESTINAL: Denies abdominal pain. Denies nausea or vomiting. HEMATOLOGIC: Denies bleeding disorders. GENITOURINARY: Denies any blood in urine. SKIN: Denies pruitis. Denies rash. PHYSICAL EXAM: VITAL SIGNS: Reviewed. GENERAL: Well-developed in no acute distress. HEENT: Head is normocephalic. Pupils are equal, round. Sclerae anicteric. Mucous membranes of the mouth are moist. Neck supple. No JVD or thyromegaly LUNGS: Respirations even and unlabored. Lungs essentially clear to auscultation bilaterally. HEART: Regular rate and rhythm. S1 and S2 heard. ABDOMEN: Soft. Nondistended. Nontender. EXTREMITIES: Normal range of motion. No clubbing or cyanosis. Peripheral pulses intact. No lower extremity edema NEUROLOGIC: Awake and alert. Oriented x 3. ASSESSMENT: Chest pain Coronary artery disease with previous stenting Hypertension Hyperlipidemia with statin intolerance Nicotine dependence History of frequent alcohol use, patient quit drinking in May 2024 PLAN: An acute coronary event has been ruled out Obtain 2D echo to assess cardiac structure and function Resume home cardiac medications Trend troponins N.p.o. at midnight Patient will be reevaluated tomorrow for possible stress test versus cardiac catheterization Further recommendations pending patient course Nurse practitioner note has been reviewed by physician. Signing provider agrees with the documented findings, assessment, and plan of care documented by YARD SWITCHER as a scribe. Past Medical History Past Medical History: Coronary Artery Disease (CAD), Chest Pain / Angina, COPD, Fibromyalgia, GERD/Reflux, Hyperlipidemia, Hypertension, Myocardial Infarction ([place]) Additional Past Medical History / Comment(s): 10/26/19 [place], gallbladder polyp, cluster headaches, IBS, diverticular disease, bronchitis, past R patella and r hand fracture. 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 see Dr Thurston's h & p, (?right)lung tumor - being monitored, fibroymyalgia, arthritis, bronchitis (chronic), snoring, anxiety/depression Last Myocardial Infarction Date:: 10/26/19 History of Any Multi-Drug Resistant Organisms: None Reported Past Surgical History: Heart Catheterization With Stent Additional Past Surgical History / Comment(s): Colonoscopies/EGDs, stents X2 (2 stents the first time and one the second time) Past Anesthesia/Blood Transfusion Reactions: No Reported Reaction Date of Last Stent Placement:: 10/26/19 Past Psychological History: Anxiety, Depression Past Alcohol Use History: None Reported - Past Family History Mother Family Medical History: No Reported History Additional Family Medical History / Comment(s): . Father Family Medical History: No Reported History Additional Family Medical History / Comment(s): Father is 74 and healthy Medications and Allergies Home Medications Medication Instructions Recorded Confirmed Type DULoxetine HCL [Cymbalta] 60 mg PO DAILY 10/26/19 02/15/25 History lisinopriL [Zestril] 10 mg PO DAILY 10/15/21 02/15/25 History Nitroglycerin 0.4 mg SL Q5M PRN 04/28/23 02/15/25 History hydroCHLOROthiazide 25 mg PO DAILY 04/28/23 02/15/25 History Aspirin [Adult Low Dose Aspirin EC] 81 mg PO DAILY 09/07/24 02/15/25 History Evolocumab [Repatha Sureclick] 140 mg SQ Q14D 02/15/25 02/15/25 History Metoprolol Tartrate [Lopressor] 50 mg PO DAILY 02/15/25 02/15/25 History Tiotropium Br/Olodaterol HCl 2 puff INHALATION RT-DAILY PRN 02/15/25 02/15/25 History [Stiolto Respimat Inhaler (60)] Allergies Allergy/AdvReac Type Severity Reaction Status Date / Time ezetimibe [From Zetia] Allergy Anaphylaxis Verified 02/15/25 08:37 [id number]-LYS-MgO Reductase Allergy liver Verified 02/15/25 08:37 Inhibitor failure atorvastatin [From Lipitor] AdvReac "LIVER Verified 02/15/25 08:37 FAILURE" Physical Exam Vitals: Vital Signs Temp Pulse Resp BP Pulse Ox 02/15/25 11:40 86 16 02/15/25 11:32 58 L 18 96 02/15/25 10:30 61 20 133/87 97 02/15/25 09:46 58 L 20 144/86 98 02/15/25 09:01 70 20 114/90 99 02/15/25 08:16 99.6 F 98 20 154/102 98 Intake and Output 02/14/25 02/15/25 02/15/25 22:59 06:59 14:59 Other: Weight 86.183 kg Results 02/15/25 08:31 02/15/25 08:31 Cardiac Enzymes 02/15/25 02/15/25 02/15/25 Range/Units 08:31 08:31 11:12 AST 25 (14-36) U/L Troponin I <0.012 <0.012 (0.000-0.034) ng/mL Coagulation 02/15/25 Range/Units 08:31 PT 10.1 (10.0-12.5) sec APTT 24.1 (22.0-30.0) sec CBC 02/15/25 Range/Units 08:31 WBC 6.96 (4.50-10.00) 10*3/uL RBC 4.56 (4.10-5.20) 10*6/uL Hgb 14.8 (12.0-15.0) g/dL Hct 42.5 (37.2-46.3) % Plt Count 333 (140-440) 10*3/uL Comprehensive Metabolic Panel 02/15/25 Range/Units 08:31 Sodium 136 L (137-145) mmol/L Potassium 4.5 (3.5-5.1) mmol/L Chloride 101 (98-107) mmol/L Carbon Dioxide 28 (22-30) mmol/L BUN 14 (7-17) mg/dL Creatinine 0.77 (0.52-1.04) mg/dL Glucose 121 H (74-99) mg/dL Calcium 9.5 (8.4-10.2) mg/dL AST 25 (14-36) U/L ALT 27 (4-34) U/L Alkaline Phosphatase 92 (38-126) U/L Total Protein 7.1 (6.3-8.2) g/dL Albumin 4.3 (3.5-5.0) g/dL Current Medications Generic Name Dose Route Start Last Admin Trade Name Freq PRN Reason Stop Dose Admin Acetaminophen 650 mg 02/15/25 10:48 Acetaminophen Tab 325 Mg Tab PO Q6HR PRN Mild Pain or Fever > 100.5 Hydrocodone Bitart/Acetaminophen 1 each 02/15/25 10:48 Hydrocodone/Apap 5-325mg 1 Each Tab PO Q4HR PRN Moderate Pain (Scale 4 to 6) Albuterol/Ipratropium 3 ml 02/15/25 10:46 02/15/25 11:32 Ipratropium-Albuterol 3 Ml Neb INHALATION 3 ml RT-Q2H PRN Administration Shortness Of Breath Or Wheezing Aspirin 81 mg 02/16/25 09:00 Aspirin 81 Mg PO DAILY [facility] Duloxetine HCl 60 mg 02/15/25 09:45 02/15/25 09:46 Duloxetine Hcl 60 Mg Capsule.Dr PO Not Given DAILY [facility] Enoxaparin Sodium 40 mg 02/16/25 09:00 Enoxaparin 40 Mg/0.4 Ml Syringe SQ DAILY [facility] Formoterol Fumarate 20 mcg 02/15/25 09:31 Formoterol Fumarate 20 Mcg/2 Ml Nebu INHALATION RT-BID PRN Shortness Of Breath Hydrochlorothiazide 25 mg 02/15/25 09:45 02/15/25 09:46 Hydrochlorothiazide 25 Mg Tab PO Not Given DAILY [facility] Lisinopril 10 mg 02/15/25 09:45 02/15/25 09:46 Lisinopril 10 Mg Tab PO Not Given DAILY [facility] Metoprolol Tartrate 50 mg 02/15/25 09:45 02/15/25 09:46 Metoprolol Tartrate 50 Mg Tab PO Not Given DAILY [facility] Nicotine 1 patch 02/15/25 10:45 02/15/25 10:57 Nicotine 14mg/24hr Patch TRANSDERM 1 patch DAILY [facility] Administration Nitroglycerin 0.4 mg 02/15/25 09:26 Nitroglycerin Sl Tabs 0.4 Mg Tab SUBLINGUAL Q5M PRN Chest Pain Tiotropium [place] 2 puff 02/15/25 09:40 Tiotropium 2.5 Mcg Inhaler INHALATION RT-DAILY PRN Shortness Of Breath Intake and Output 02/14/25 02/15/25 02/15/25 22:59 06:59 14:59 Other: Weight 86.183 kg Patient Weight 02/16/25 06:59 Weight 86.183 kg 02/15/25 08:31 04/08/25 08:31
[2025-02-15] MEDS: ISOSORBIDE MONONITRATE ER 30 MG TAB.ER.24H PO SCH (14:39)
[2025-02-15] MEDS: ACETAMINOPHEN TAB 325 MG TAB PO PRN (20:29)
[2025-02-15] MEDS: MELATONIN 5 MG TABLET PO PRN (21:04)
--- NOTE | 2025-02-16 07:05 | CA ---
Transthoracic Echo Report Name: Bryan Palm Age: 54 Gender: F : 1970 Exam Date: 02/15/2025 15:04 Exam Location: [facility] Ht (in): 62 Wt (lb): 190 Ordering Physician: Kalin Hill Attending/Referring Phys: [employer] Specialist Luz Vazquez RDCS Procedure CPT: Indications: CP, hx CAD s/p stenting Cardiac Hx: Technical Quality: Good Contrast 1: Total Dose (mL): Contrast 2: Total Dose (mL): MEASUREMENTS (Male / Female) Normal Values 2D ECHO LV Diastolic Diameter PLAX 4.3 cm 4.2 - 5.9 / 3.9 - 5.3 cm LV Systolic Diameter PLAX 2.9 cm IVS Diastolic Thickness 0.8 cm 0.6 - 1.0 / 0.6 - 0.9 cm LVPW Diastolic Thickness 1.2 cm 0.6 - 1.0 / 0.6 - 0.9 cm LV Relative Wall Thickness 0.5 LVOT Diameter 2.4 cm LV Diastolic Volume MOD BP 76.2 cm??? 67 - 155 / 56 - 104 cm??? LV Systolic Volume MOD BP 29.7 cm??? 22 - 58 / 19 - 49 cm??? LV Ejection Fraction MOD BP 61.0 % >= 55 % LV Cardiac Index MOD BP 1549.7 cm???/min???m??? LV Diastolic Volume MOD 4C 77.0 cm??? LV Systolic Volume MOD 4C 31.8 cm??? LV Ejection Fraction MOD 4C 58.7 % LV Cardiac Index MOD 4C 1505.1 cm???/min???m??? LV Diastolic Length 4C 7.5 cm LV Systolic Length 4C 6.2 cm LV Diastolic Volume MOD 2C 73.0 cm??? LV Systolic Volume MOD 2C 27.8 cm??? LV Ejection Fraction MOD 2C 62.0 % LV Cardiac Index MOD 2C 1506.7 cm???/min???m??? LV Diastolic Length 2C 7.8 cm LV Systolic Length 2C 6.3 cm LA Volume 47.5 cm??? 18 - 58 / 22 - 52 cm??? LA Volume Index 24.0 cm???/m??? 16 - 28 cm???/m??? DOPPLER AV Peak Velocity 107.1 cm/s AV Peak Gradient 4.6 mmHg AV Mean Velocity 78.6 cm/s AV Mean Gradient 2.6 mmHg AV Velocity Time Integral 23.3 cm LVOT Peak Velocity 89.5 cm/s LVOT Peak Gradient 3.2 mmHg LVOT Velocity Time Integral 18.3 cm LVOT Stroke Volume 82.5 cm??? LVOT Stroke Volume Index 44.1 ml/m??? LVOT Cardiac Index 2748.1 cm???/min???m??? AV Area Cont Eq vti 3.5 cm??? AV Area Cont Eq pk 3.8 cm??? MV Area PHT 5.0 cm??? Mitral E Point Velocity 66.8 cm/s Mitral A Point Velocity 72.2 cm/s Mitral E to A Ratio 0.9 MV Deceleration Time 151.7 ms PV Peak Velocity 82.8 cm/s PV Peak Gradient 2.7 mmHg FINDINGS Left Ventricle Left ventricular ejection fraction is estimated at 55-60 %. Mildly increased posterior wall thickness. Left ventricular cavity size normal. No obvious regional wall motion abnormalities. Right Ventricle Normal right ventricular size and function. Unable to estimate the right ventricular systolic pressure. Right Atrium Normal right atrial size. Left Atrium Normal left atrial size. Mitral Valve Structurally normal mitral valve. No evidence for mitral valve prolapse. No mitral stenosis. Trace mitral regurgitation. Aortic Valve Trileaflet aortic valve. No aortic valve stenosis or regurgitation. Tricuspid Valve Structurally normal tricuspid valve. No tricuspid stenosis. Trace tricuspid regurgitation. Pulmonic Valve Structurally normal pulmonic valve. No pulmonic stenosis. No pulmonic regurgitation. Pericardium No pericardial effusion. Echo free space anterior to the right ventricle likely represents a fat pad. Aorta Normal size aortic root and proximal ascending aorta. CONCLUSIONS Normal biventricular systolic function No significant valvular abnormalities No pericardial effusion Previewed by: Dr. Paul Miner MD (Electronically Signed) Final Date: 16 February 2025 07:04
[2025-02-16 08:20] LABS: Chol/HDL Ratio 3.86 Ratio; LDL Cholesterol,Calculated 73.6 mg/dL (0.0-131.0)
[2025-02-16] MEDS: ASPIRIN 81 MG PO SCH (08:23)
[2025-02-16] MEDS ORDERED: NITROGLYCERIN SL TABS 0.4 MG TAB SUBLINGUAL PRN ×2 (08:34→18:27)
[2025-02-16] MEDS ORDERED: ALPRAZolam 0.5 MG TAB PO PRN (08:34)
[2025-02-16] MEDS ORDERED: ASPIRIN 325 MG TAB PO STA (08:34)
[2025-02-16] MEDS ORDERED: ALPRAZolam 0.25 MG TAB PO PRN (08:34)
[2025-02-16] MEDS ORDERED: ASPIRIN 325 MG TAB PO SCH (09:00)
--- NOTE | 2025-02-16 09:29 | P.PN ---
Subjective HISTORY OF PRESENT ILLNESS: This is a 54-year-old female with a past medical history significant for coronary artery disease with previous stenting, hypertension, hyperlipidemia, statin intolerance, and former nicotine dependence. Patient does not follow with a hotel lobby concierge. The patient previously followed with Dr. Thurston. She was last seen in the office in July 2024. Per office records, At that time the patient was apparently upset as she was prescribed Zetia and was yelling at Dr. Thurston and his nurse practitioner and threatening to jeyson the office per his office dictation and stated she was not comfortable with him prescribing medications and stated she no longer wanted to follow with Dr. Thurston. We have been asked to see the patient in consultation for chest pain. Patient examined at the bedside in the ER. Upon entering the room, Dr. Miner introduced himself and stated he was a partner of Dr. Thurston and asked the patient if she wanted to be seen by him. Patient was agreeable to be evaluated by Dr. Miner. The patient states that today she was driving to [facility] when she began to have chest pain. She states that she took 2 nitro with no relief of her pain. She states the pain felt like " labor pains in her chest". She reports the pain radiated into her arm. She states that this feels similar to previous episodes when she required stenting. She continues to smoke about 10 cigarettes a day. She quit drinking alcohol in May 2024. At the time of examination, patient denies chest pain or pressure. Vital signs are stable. DIAGNOSTICS: - EKG reveals sinus mechanism with no signs of acute ischemia. - Chest xray negative for acute process - Laboratory data: WBC 6.96. Hemoglobin 14.8. Platelet count 333. Sodium 136. Potassium 4.5. BUN 14. Creatinine 0.77. Troponin negative x 2. - Current home cardiac medications include Repatha 140 mg subcu every 14 days, metoprolol tartrate 50 mg daily, hydrochlorothiazide 25 mg daily, lisinopril 10 mg daily, aspirin 81 mg daily. - Patient underwent low-level treadmill stress test in June 2023 which was nondiagnostic secondary to inadequate chronotropic response - Most recent echocardiogram obtained in January 2023 revealed ejection fraction 55%, mild MR, mild TR - Cardiac catheterization history: April 2023 revealing 85% proximal circumflex, 50% RCA in-stent stenosis, and 40% mid RCA stenosis. iFR RCA normal, IFR of the circumflex abnormal. Patient underwent stenting of the circumflex. 02/16/2025 Patient examined this morning to bedside. Patient denies any chest pain or pressure overnight. She does report an episode of chest pain this morning when she was up ambulating to the bathroom. Vital signs are stable. 2D echo obtained revealing EF 55 to 60% with no significant valvular abnormalities. PHYSICAL EXAM: VITAL SIGNS: Reviewed. GENERAL: Well-developed in no acute distress. HEENT: Head is normocephalic. Pupils are equal, round. Sclerae anicteric. Mucous membranes of the mouth are moist. Neck supple. No JVD or thyromegaly LUNGS: Respirations even and unlabored. Lungs essentially clear to auscultation bilaterally. HEART: Regular rate and rhythm. S1 and S2 heard. ABDOMEN: Soft. Nondistended. Nontender. EXTREMITIES: Normal range of motion. No clubbing or cyanosis. Peripheral pulses intact. No lower extremity edema NEUROLOGIC: Awake and alert. Oriented x 3. ASSESSMENT: Chest pain Coronary artery disease with previous stenting Hypertension Hyperlipidemia with statin intolerance Nicotine dependence History of frequent alcohol use, patient quit drinking in May 2024 PLAN: Continue current cardiac medications Discussed options with patient including stress test versus cardiac catheterization. Patient would like to proceed with cardiac catheterization Patient will undergo cardiac catheterization today with Dr. Miner Further recommendations pending patient course Nurse practitioner note has been reviewed by physician. Signing provider agrees with the documented findings, assessment, and plan of care documented by RESTAURANT CASHIER as a scribe. Objective - Vital Signs Vital signs: Vital Signs Temp 98.0 F 02/16/25 07:20 Pulse 78 02/16/25 07:20 Resp 16 02/16/25 07:20 BP 131/87 02/16/25 07:20 Pulse Ox 98 02/16/25 08:06 FiO2 Intake & Output 02/15/25 02/16/25 02/16/25 18:59 06:59 18:59 Weight 86.183 kg Other: # Voids 2 - Labs CBC & Chem 7: 02/15/25 08:31 02/15/25 08:31 Labs: Abnormal Lab Results - Last 24 Hours (Table) 02/16/25 Range/Units 04:22 Triglycerides 243.00 H (0.00-149.00) mg/dL VLDL Cholesterol, Calc 48.60 H (5.00-40.00) mg/dL
[2025-02-16] MEDS: SODIUM CHLORIDE 0.9% 1,000 ML in EMPTY BAG 1 BAG IV SCH (10:51)
[2025-02-16] MEDS: ENOXAPARIN 40 MG/0.4 ML SYRINGE SQ SCH (11:46)
--- NOTE | 2025-02-16 12:21 | P.PN ---
Subjective Progress Note Date: 02/16/25 Hospital Course: Patient is a 54-year-old female with a past medical history of CAD status post stenting x 3 with last stent placed in 2022, hypertension, hyperlipidemia, COPD with continued nicotine dependence not home oxygen dependent, fibromyalgia, and GERD. She reports she used to follow with environmental coordinator Dr. Thurston but they mutually parted ways and she is scheduled to see environmental coordinator in [facility] tomorrow. Patient presented to the hospital today secondary to reports of chest pain. She reports approximately 1 hour prior to arrival she began having chest pain in her midsternal chest that radiated into left anterior chest and down left arm accompanied by some dizziness. She does admit to some shortness of breath but reports this is chronic secondary to her COPD and denies having any increase or changes in her baseline shortness of breath. Patient admits to smoking approximately a half of a pack of cigarettes daily. She denies having any headache, changes in vision or hearing, palpitations, increase or changes in chronic cough or congestion, nausea or vomiting, abdominal pain, or experiencing any numbness/tingling/weakness/swelling in her extremities. Upon arrival to our facility, patient underwent evaluation in the emergency department. Vital signs upon arrival show blood pressure 154/102, heart rate 98, respiratory rate 20, t emp 99.6 F, and SpO2 of 98% on room air. EKG completed showing normal sinus rhythm at 87 bpm with no significant T wave or ST abnormality showing no signs of acute ischemia upon personal review and interpretation. Labs completed and reviewed. CBC unremarkable. Coagulation profile normal findings. BMP showing hyperglycemia with blood glucose of 121 otherwise normal findings. Magnesium was 2.2. Liver profile normal findings. Troponin was negative at less than 0.012. Patient was admitted under our services with consultation to cardiology. Troponins were trended all negative at less than 0.012 x 3 draws. Lipid profile showing elevated triglycerides of 243 and VLDL of 48.60. Physical exam: Patient seen and fully evaluated at bedside this morning. She is currently resting comfortably and denied having any complaints, questions, or concerns at this time. She reports occasional intermittent chest pressure but states improved today. She denies having any headache, lightheadedness, dizziness, palpitations, shortness of breath, or any other complaints at this time. Patient scheduled to undergo cardiac catheterization later today. Vital signs reviewed and stable. General: Nontoxic, no distress and appears stated age. Derm: Skin warm and dry, normal coloration for ethnicity. Head: Atraumatic, normocephalic and symmetric. Eyes: EOM's intact, no lid lag, and anicteric sclera Mouth: no lip lesions, mucus membranes moist Cardiovascular: regular rate and rhythm with normal S1S2, no murmur, positive posterior tibial pulses bilaterally, and cap refill < 2 seconds. Lungs: Respirations even, regular, and unlabored on room air. Lungs CTA bilaterally, no rhonchi, no rales, no wheezing, and no accessory muscle usage. Abdominal: soft, nontender to palpation, no guarding, no appreciable organomegaly Ext: ROM intact. No gross muscle atrophy, no edema, no contractures Neuro: Speech clear, face symmetrical and CN II-XII grossly intact with no noted focal neuro deficits Psych: Alert and oriented to person, place, time, and situation. Appropriate and pleasant affect. Assessment and Plan of Care: Chest pain, rule out acute coronary event History of CAD status post stenting x 3 Hypertension Hyperlipidemia -Cardiology following, started patient on Imdur and planning to take patient for cardiac catheterization later today. -Telemetry monitoring -Troponins were trended all negative at less than 0.012 x 3 draws. Lipid profile showing elevated triglycerides of 243 and VLDL of 48.60. -Continue cardiac medication regimen with aspirin 81 mg daily, hydrochlorothiazide 25 mg daily, lisinopril 10 mg daily, isosorbide mononitrate 30 mg daily, and metoprolol 50 mg daily. -Echocardiogram completed showing a preserved EF of 55 to 60% with no significant valvular or structural abnormalities reported. COPD, not in acute exacerbation Nicotine dependence -Continue Spiriva 2 puffs daily and as needed DuoNebs for wheezing/shortness of breath. -Recommended smoking cessation and order placed for nicotine patch 14 mg daily. Fibromyalgia -Supportive and symptomatic care. Tylenol 650 mg p.o. every 6 hours as needed for mild pain and Choudrant 5/325 mg tablets as needed for moderate pain. Data and imaging reviewed: -Labs Reviewed. Troponins were trended all negative at less than 0.012 x 3 draws. Lipid profile showing elevated triglycerides of 243 and VLDL of 48.60. -Echocardiogram completed showing a preserved EF of 55 to 60% with no significant valvular or structural abnormalities reported. -Vital signs reviewed. Blood pressure 131/87, heart rate 78, respiratory, temp 98.0 F, and SpO2 of 96% on room air. CODE STATUS Full code DVT prophylaxis: Lovenox. Anticipated discharge date: Pending completion of cardiac cath, if negative possible discharge later today if patient receives a stent will be placed i npatient and plan for discharge tomorrow. Anticipated discharge place: Home Patient was seen independently by Nurse Practitioner. This document was prepared using [employer] dictation software. Please allow for errors in toy consultant while rare they do occur. Kalin Hill NP rendered care for this patient independently, reviewed the findings and plan as documented in the note above and agree with plan. I did not physically speak with or examine the patient on this date. Objective - Vital Signs Vital signs: Vital Signs Temp 98.0 F 02/16/25 07:20 Pulse 78 02/16/25 07:20 Resp 16 02/16/25 07:20 BP 131/87 02/16/25 07:20 Pulse Ox 98 02/16/25 08:06 FiO2 Intake & Output 02/15/25 02/16/25 02/16/25 18:59 06:59 18:59 Weight 86.183 kg Other: # Voids 2 - Labs CBC & Chem 7: 02/15/25 08:31 02/15/25 08:31 Labs: Abnormal Lab Results - Last 24 Hours (Table) 02/16/25 Range/Units 04:22 Triglycerides 243.00 H (0.00-149.00) mg/dL VLDL Cholesterol, Calc 48.60 H (5.00-40.00) mg/dL
[2025-02-16] MEDS: IV FLUID CONTINUATION 1,000 ML IV ONE (16:44)
[2025-02-16] MEDS: MIDAZOLAM 2 MG/2 ML VIAL IVP ONE ×2 (17:27→18:10)
[2025-02-16] MEDS: LIDOCAINE 1% INJ 10MG/ML (20 ML MDV) SQ ONE (17:28)
[2025-02-16] MEDS: VERAPAMIL SYRINGE (5 MG/10 ML) INTRAARTER ONE ×2 (17:28→17:31)
[2025-02-16] MEDS: HEPARIN SODIUM 1,000 UN/ML (10ML VL) IVP ONE (17:34)
[2025-02-16] MEDS: PRASUGREL 10 MG TAB PO ONE (17:42)
[2025-02-16] MEDS: fentaNYL (PF) 50 MCG/1 ML VIAL IVP ONE (17:48)
[2025-02-16] MEDS: IOPAMIDOL-370 100ML BTL INJ ONE (18:02)
[2025-02-16] MEDS: HEPARIN SODIUM,PORCINE (1 ML) 2,500 UNIT in SODIUM CHLORIDE 0.9% 250 ML IRRIGATION ONE (18:11)
[2025-02-16] MEDS: HEPARIN SODIUM,PORCINE 10,000 UNIT in SODIUM CHLORIDE 0.9% 1,000 ML IRRIGATION ONE (18:11)
[2025-02-16] MEDS: NITROGLYCERIN 1000MCG/10ML SYRINGE INTRACORON ONE (18:20)
[2025-02-16] MEDS ORDERED: MAG HYDROX/AL HYDROX/SIMETH 30 ML CUP PO PRN (18:27)
[2025-02-16] MEDS ORDERED: RX INFO: IV CONTRAST WAS GIVEN 1 EACH MISC MISCELLANE PRN (18:27)
[2025-02-16] MEDS ORDERED: ZOLPIDEM 5 MG TAB PO PRN (18:27)
[2025-02-16] MEDS ORDERED: ATROPINE SULFATE 0.1 MG/ML 10ML SYRINGE IV PRN (18:27)
--- NOTE | 2025-02-16 18:34 | P.PCN ---
Date of Procedure: 02/16/25 Operative Findings: CARDIAC CATHETERIZATION AND PERCUTANEOUS CORONARY INTERVENTION PERFORMING PHYSICIAN: Paul Miner MD, [facility] PROCEDURE PERFORMED: 1. Selective right and left coronary angiogram and left heart catheterization 2. Successful stenting of mid RCA and proximal RCA using 4.0 x 33 and 4.0 x 8 mm Xience QUAN with an excellent angiographic results 3. Successful stenting of the mid LCx using 3.5 x 18 mm Xience QUAN with an excellent angiographic result 4. Adjunctive use of IVUS 5. Ultrasound-guided access of the right radial artery INDICATION: Unstable angina and this 54-year-old female patient who was admitted to the hospital with a chest discomfort and continues to have chest discomfort which she is known to have CAD with prior revascularization of the RCA and LCx COMPLICATION: None APPROACH: Right radial art LEVEL OF SEDATION: Moderate with the sedation time off 55 minutes PROCEDURE DESCRIPTION: After obtaining informed consent the patient was brought to the cardiac Telecommunication Operator with right radial artery was cannulated using micropuncture technique under ultrasound guidance a micropuncture wire passed easily then I placed a 6 American 11 cm sheath at the right radial artery and give the patient 2 mg of verapamil intra-arterial and 5000's of heparin intravenous. After that I did selective right and left coronary angiogram using JR4 and JL 3.5 catheter with left heart catheterization was performed using the JR4 catheter which crossed the aortic valve. After that I decided to intervene on the RCA and LCx with anticoagulation continued using heparin with continuous ACT monitoring. Subsequently the patient was loaded with 60 of Effient. I did engage using JR4 guiding catheter and wired using a run-through wire. I did IVUS which showed a diameter of the RCA around 4 mm with predilatation was performed using 3.5 mm before I deployed 4.0 x 33 mm Xience QUAN where the stent was positioned under fluoroscopy guidance and deployed under fluoroscopy guidance and postdilated using 4 mm NC balloon with an angiogram showing possible edge dissection of an old stent. I decided to cover that with another stent and I deployed 4.0 x 8 mm bit final angiogram showed excellent angiographic results. Subsequently I did engage the left main using JL 3.5 guide catheter and I did wire the left circumflex using a run-through wire. After that IVUS was performed and showed a diameter around 3 to 3.5 mm with I did predilatation using 3 millimeter score flex balloon before I deployed 3.5 x 18 mm with IVUS which showed good results with angiogram showing good angiographic results as well. The procedure was completed with no complication SELECTIVE CORONARY ANGIOGRAM: The right coronary artery: Stented with a critical disease involving the midportion appears to be in the range of 99.9% Left main: Is angiographically The left circumflex: Large caliber vessel nondominant vessel with critical disease involving the midportion The left anterior descending artery: Large caliber vessel with mild disease with no evidence of high-grade HEMODYNAMICS: The LVEDP was about 6 mmHg with no significant gradient across aortic valve CONCLUSION: 1. Critical disease involving the mid RCA. I did successful PCI of the RCA as described above 2. Critical disease involving the mid LCx. I did successful PCI of the LCx as described 3. No evidence of high-grade stenosis involving the left main and LAD 4. Normal left-sided filling pressure POSTPROCEDURE MANAGEMENT: 1. Dual antiplatelet therapy using aspirin and Effient for at least 6 month 2. Aggressive cholesterol control 3. Follow-up with the patient
[2025-02-17] MEDS: SODIUM CHLORIDE 0.9% 1,000 ML in EMPTY BAG 1 BAG IV SCH (00:52)
[2025-02-17] MEDS ORDERED: HEPARIN SODIUM,PORCINE 10,000 UNIT in SODIUM CHLORIDE 0.9% 1,000 ML IRRIGATION PRN (07:00)
[2025-02-17] MEDS ORDERED: HEPARIN SODIUM,PORCINE (1 ML) 2,500 UNIT in SODIUM CHLORIDE 0.9% 250 ML IRRIGATION PRN (07:00)
[2025-02-17 07:33] LABS: African American GFR (CKD) >90 (>60 ml/min/1.73 sqM); Non-African American GFR(CKD) >90 (>60 ml/min/1.73 sqM)
[2025-02-17 07:36] VITALS: BP 133/88; PULSE 75; RESP 18; TEMP 97.9
[2025-02-17] MEDS: METOPROLOL TARTRATE 50 MG TAB PO SCH (08:14)
[2025-02-17] MEDS: PRASUGREL 10 MG TAB PO SCH (08:14)
--- NOTE | 2025-02-17 10:11 | P.DS ---
Providers Date of admission: 02/15/25 09:28 Attending physician: Robert Mcgowan MD Consults: 02/15/25 09:26 Consult Physician Urgent Consulting Provider: Raphael Thurston Consult Reason/Comments: chest pain Do you want consulting provider notified?: Yes 02/16/25 18:27 Consult Physician Routine Consulting Provider: [facility] Consult Reason/Comments: Post Interventional Patient Do you want consulting provider notified?: Already Contacted Primary care physician: Juan Keller Hospital Course: Discharge Diagnosis: Unstable angina Critical stenosis of the mid RCA and mid LCx status post stents placement02/17/25 History of CAD with status post stenting Hypertension Hyperlipidemia with statins allergy COPD, not in acute exacerbation Nicotine dependence Fibromyalgia Hospital Course: Patient is a 54-year-old female with a past medical history of CAD status post stenting x 3 with last stent placed in 2022, hypertension, hyperlipidemia, COPD with continued nicotine dependence not home oxygen dependent, fibromyalgia, and GERD. She reports she used to follow with box fabricator Dr. Thurston but they mutually parted ways and she is scheduled to see box fabricator in [facility] tomorrow. Patient presented to the hospital today secondary to reports of chest pain. She reports approximately 1 hour prior to arrival she began having chest pain in her midsternal chest that radiated into left anterior chest and down left arm accompanied by some dizziness. She does admit to some shortness of breath but reports this is chronic secondary to her COPD and denies having any increase or changes in her baseline shortness of breath. Patient admits to smoking approximately a half of a pack of cigarettes daily. She denies having any headache, changes in vision or hearing, palpitations, increase or changes in chronic cough or congestion, nausea or vomiting, abdominal pain, or experiencing any numbness/tingling/weakness/swelling in her extremities. Upon arrival to our facility, patient underwent evaluation in the emergency department. Vital signs upon arrival show blood pressure 154/102, heart rate 98, respiratory rate 20, temp 99.6 F, and SpO2 of 98% on room air. EKG completed showing normal sinus rhythm at 87 bpm with no significant T wave or ST abnormality showing no signs of acute ischemia upon personal review and interpretation. Labs completed and reviewed. CBC unremarkable. Coagulation profile normal findings. BMP showing hyperglycemia with blood glucose of 121 otherwise normal findings. Magnesium was 2.2. Liver profile normal findings. Troponin was negative at less than 0.012. Patient was admitted under our services with consultation to cardiology. Troponins were trended all negative at less than 0.012 x 3 draws. Lipid profile showing elevated triglycerides of 243 and VLDL of 48.60. Patient was taken to the Signal Maintenance Technician on 02/17, was found to have critical disease involving mid RCA and mid LCx s/p successful stenting. Patient was deemed stable for discharge and cleared by cardiology on 02/17, will be discharged on dual antiplatelet with aspirin and prasugrel 10 mg p.o. daily, continue home Lopressor 50 mg p.o. daily, hydrochlorothiazide 25 mg p.o. daily, lisinopril 10 mg daily, was started on Imdur 30 mg daily. Not on statins due to history of allergy. Patient to follow-up with cardiology and PCP, smoking cessation recommended. Patient seen and examined at bedside. Vital signs reviewed and stable. General: [nontoxic], [no distress], [appears at stated age] Derm: [warm], [dry] Head: [atraumatic], [normocephalic], [symmetric] Eyes: [EOMI], [no lid lag], [anicteric sclera] Mouth: [no lip lesion], [mucus membranes moist] Cardiovascular: [S1S2 reg], [no murmur] Lungs: [CTA bilateral], [no rhonchi, no rales] , [no accessory muscle use] Abdominal: [soft], [ nontender to palpation], [no guarding], [no appreciable organomegaly] Ext: [no gross muscle atrophy], [no edema], [no contractures] Neuro: [ CN II-XI grossly intact], [no focal neuro deficits] Psych: [Alert], [oriented], [appropriate affect] A total of 40 minutes of time were spent preparing this complex discharge summary. Patient was discharged on 02/17. Patient Condition at Discharge: Fair Plan - Discharge Summary Discharge Rx Participant: Yes New Discharge Prescriptions: New Prasugrel [Effient] 10 mg PO DAILY #30 tab Isosorbide Mononitrate ER [Imdur] 30 mg PO DAILY #30 tab Continue DULoxetine HCL [Cymbalta] 60 mg PO DAILY Nitroglycerin 0.4 mg SL Q5M PRN PRN Reason: Chest Pain Metoprolol Tartrate [Lopressor] 50 mg PO DAILY Evolocumab [Repatha Sureclick] 140 mg SQ Q14D lisinopriL [Zestril] 10 mg PO DAILY hydroCHLOROthiazide 25 mg PO DAILY Aspirin [Adult Low Dose Aspirin EC] 81 mg PO DAILY Tiotropium Br/Olodaterol HCl [Stiolto Respimat Inhaler (60)] 2 puff INHALATION RT-DAILY PRN PRN Reason: Shortness Of Breath Discharge Medication List DULoxetine HCL [Cymbalta] 60 mg PO DAILY 10/26/19 [History] lisinopriL [Zestril] 10 mg PO DAILY 10/15/21 [History] Nitroglycerin 0.4 mg SL Q5M PRN 04/28/23 [History] hydroCHLOROthiazide 25 mg PO DAILY 04/28/23 [History] Aspirin [Adult Low Dose Aspirin EC] 81 mg PO DAILY 09/07/24 [History] Evolocumab [Repatha Sureclick] 140 mg SQ Q14D 02/15/25 [History] Metoprolol Tartrate [Lopressor] 50 mg PO DAILY 02/15/25 [History] Tiotropium Br/Olodaterol HCl [Stiolto Respimat Inhaler (60)] 2 puff INHALATION RT-DAILY PRN 02/15/25 [History] Isosorbide Mononitrate ER [Imdur] 30 mg PO DAILY #30 tab 02/17/25 [Rx] Prasugrel [Effient] 10 mg PO DAILY #30 tab 02/17/25 [Rx] Follow up Appointment(s)/Referral(s): Paul Miner MD [STAFF PHYSICIAN] - 1 Week Juan Keller DO [Primary Care Provider] - 1-2 days Patient Instructions/Handouts: Coronary Artery Disease (DC), DASH Eating Plan (DC) Activity/Diet/Wound Care/Special Instructions: Please, follow-up with your primary care physician and box fabricator. Take all the medications as prescribed Discharge Disposition: HOME SELF-CARE
--- NOTE | 2025-02-17 11:08 | P.PN ---
Subjective HISTORY OF PRESENT ILLNESS: This is a 54-year-old female with a past medical history significant for coronary artery disease with previous stenting, hypertension, hyperlipidemia, statin intolerance, and former nicotine dependence. Patient does not follow with a transplant nurse practitioner. The patient previously followed with Dr. Thurston. She was last seen in the office in July 2024. Per office records, At that time the patient was apparently upset as she was prescribed Zetia and was yelling at Dr. Thurston and his nurse practitioner and threatening to jeyson the office per his office dictation and stated she was not comfortable with him prescribing medications and stated she no longer wanted to follow with Dr. Thurston. We have been asked to see the patient in consultation for chest pain. Patient examined at the bedside in the ER. Upon entering the room, Dr. Miner introduced himself and stated he was a partner of Dr. Thurston and asked the patient if she wanted to be seen by him. Patient was agreeable to be evaluated by Dr. Miner. The patient states that today she was driving to [place] when she began to have chest pain. She states that she took 2 nitro with no relief of her pain. She states the pain felt like " labor pains in her chest". She reports the pain radiated into her arm. She states that this feels similar to previous episodes when she required stenting. She continues to smoke about 10 cigarettes a day. She quit drinking alcohol in May 2024. At the time of examination, patient denies chest pain or pressure. Vital signs are stable. DIAGNOSTICS: - EKG reveals sinus mechanism with no signs of acute ischemia. - Chest xray negative for acute process - Laboratory data: WBC 6.96. Hemoglobin 14.8. Platelet count 333. Sodium 136. Potassium 4.5. BUN 14. Creatinine 0.77. Troponin negative x 2. - Current home cardiac medications include Repatha 140 mg subcu every 14 days, metoprolol tartrate 50 mg daily, hydrochlorothiazide 25 mg daily, lisinopril 10 mg daily, aspirin 81 mg daily. - Patient underwent low-level treadmill stress test in June 2023 which was nondiagnostic secondary to inadequate chronotropic response - Most recent echocardiogram obtained in January 2023 revealed ejection fraction 55%, mild MR, mild TR - Cardiac catheterization history: April 2023 revealing 85% proximal circumflex, 50% RCA in-stent stenosis, and 40% mid RCA stenosis. iFR RCA normal, IFR of the circumflex abnormal. Patient underwent stenting of the circumflex. 02/16/2025 Patient examined this morning to bedside. Patient denies any chest pain or pressure overnight. She does report an episode of chest pain this morning when she was up ambulating to the bathroom. Vital signs are stable. 2D echo obtained revealing EF 55 to 60% with no significant valvular abnormalities. 02/17/2025 Patient is status post cardiac catheterization with stenting of the mid RCA, proximal RCA, and mid left circumflex. Patient examined this morning the bedside. Patient currently denies any chest pain or pressure. Denies any shor tness of breath. Vital signs are stable. PHYSICAL EXAM: VITAL SIGNS: Reviewed. GENERAL: Well-developed in no acute distress. HEENT: Head is normocephalic. Pupils are equal, round. Sclerae anicteric. Mucous membranes of the mouth are moist. Neck supple. No JVD or thyromegaly LUNGS: Respirations even and unlabored. Lungs essentially clear to auscultation bilaterally. HEART: Regular rate and rhythm. S1 and S2 heard. ABDOMEN: Soft. Nondistended. Nontender. EXTREMITIES: Normal range of motion. No clubbing or cyanosis. Peripheral pulses intact. No lower extremity edema NEUROLOGIC: Awake and alert. Oriented x 3. ASSESSMENT: Chest pain, status post cardiac catheterization with stenting as above Coronary artery disease with previous stenting Hypertension Hyperlipidemia with statin intolerance Nicotine dependence History of frequent alcohol use, patient quit drinking in May 2024 PLAN: Continue dual antiplatelet therapy with aspirin and Effient for 6 months Patient with statin intolerance. Continue Repatha. Continue additional cardiac medications Patient is stable for discharge home today from a cardiac standpoint Patient to follow-up with her new transplant nurse practitioner in [place] Nurse practitioner note has been reviewed by physician. Signing provider agrees with the documented findings, assessment, and plan of care documented by [employer] as a scribe. Objective - Vital Signs Vital signs: Vital Signs Temp 97.9 F 02/17/25 07:00 Pulse 75 02/17/25 07:00 Resp 18 02/17/25 07:00 BP 133/88 02/17/25 07:00 Pulse Ox 94 L 02/17/25 07:00 FiO2 Intake & Output 02/16/25 02/17/25 02/17/25 18:59 06:59 18:59 Intake Total 402 Balance 402 Intake: IV 402 Other: # Voids 2 3 - Labs CBC & Chem 7: 02/15/25 08:31 02/17/25 06:53
== END 2025-02-17 10:53 | disposition home or self-care (01) | DRG 322 ==
LOC: EC 08:14 → 6NMEDSUR 09:28 → OBSVTOIN 09:29 → 6NMEDSUR 16:12
PROVIDERS: ADMIT Internal Medicine; ATTEND Internal Medicine
PROC: 4A023N7 Measurement of Cardiac Sampling and Pressure, Left Heart, Percutaneous Approach (ICD-10-PCS; principal; 2025-02-16 11:45)
PROC: 027136Z Dilation of Coronary Artery, Two Arteries with Three Drug-eluting Intraluminal Devices, Percutaneous Approach (ICD-10-PCS; 2025-02-16 11:45)
PROC: B2111ZZ Fluoroscopy of Multiple Coronary Arteries using Low Osmolar Contrast (ICD-10-PCS; 2025-02-16 11:45)
PROC: B241ZZ3 Ultrasonography of Multiple Coronary Arteries, Intravascular (ICD-10-PCS; 2025-02-16 11:45)
DX: I25.110 Atherosclerotic heart disease of native coronary artery with unstable angina pectoris (principal); E78.1 Pure hyperglyceridemia; J44.9 Chronic obstructive pulmonary disease, unspecified; I10 Essential (primary) hypertension; F17.210 Nicotine dependence, cigarettes, uncomplicated; Z95.5 Presence of coronary angioplasty implant and graft; Z88.8 Allergy status to other drugs, medicaments and biological substances; F10.91 Alcohol use, unspecified, in remission; I25.2 Old myocardial infarction; Z79.82 Long term (current) use of aspirin; Z79.899 Other long term (current) drug therapy; M79.7 Fibromyalgia; R73.9 Hyperglycemia, unspecified
CPT/HCPCS: 36415; 37252; 37253; 71046; 80053; 80061; 82565; 83735; 84484; 85025; 85610; 85730; 93005; 93306; 93458; 94640; 94760; 96372; 99285